=== PATIENT | male | born 1950 | race Caucasian/White ===

== ENCOUNTER 2020-09-20 16:36 | Emergency (ER) | payer MEDICARE, SELFPAY ==
[2020-09-20 19:39] VITALS: BP 120/82; PULSE 62; RESP 18; TEMP 36.7; O2SAT 99; BMI 32.5
[2020-09-20 20:12] LABS: Glucose Urine UA NEG (NEG); Leukocyte Esterase Urine 1+ (NEG); Nitrite Urine POS (NEG); Specific Gravity - Urine >= 1.030 (1.005-1.025); Urine Blood 3+ (NEG); Urine Ketones 5 MG/DL (NEG); Urine Protein 3+ MG/DL (NEG-TRACE)
[2020-09-20 20:13] LABS: Appearance Urine CLOUDY; Color Urine RED
[2020-09-20 20:22] LABS: Bacteria Urine 1+ /LPF; RBC Urine TNTC /HPF (0); Squamous Epithelial Cell Urine 1+ /LPF
[2020-09-20 20:42] LABS: MANUAL DIFF FLAG NO
[2020-09-20 20:43] LABS: Basophils Absolute Auto 0.1 X10*3/uL (0.0-0.2); Basophils Percent Auto 0.5 % (0-2); Eosinophils Absolute Auto 0.2 X10*3/uL (0.0-0.4); Eosinophils Percent Auto 2.2 % (0-4); Hemoglobin 13.1 g/dl (14.0-18.0); Imm Gran Abs Auto 0.04 X10*3/uL (0.00-0.03); Imm Gran Pct Auto 0.4 % (0.0-0.4); Lymphocytes Absolute Auto 3.3 X10*3/uL (1.2-4.9); Lymphocytes Percent Auto 33.2 % (20-40); Mean Corpuscular Hemoglobin 28.2 pg (27.0-33.0); Mean Corpuscular Volume 88.4 fL (80-98); Mean Platelet Volume 9.1 fL (9.4-12.4); Monocytes Absolute Auto 0.6 X10*3/uL (0.1-1.2); Neutrophils Absolute Auto 5.8 X10*3/uL (2.0-8.3); Neutrophils Percent Auto 57.7 % (45-73); Platelet Count 161 X10*3/uL (160-400); Red Blood Count 4.64 X10*6/uL (4.60-5.80); Red Cell Distribution Width 13.3 % (11.0-16.0)
[2020-09-20 21:11] LABS: Anion Gap 12 (12-20); Blood Urea Nitrogen 18 mg/dL (9-16); Calcium 8.7 mg/dL (8.4-10.2); Carbon Dioxide 25 mmol/L (22-29); Chloride 108 mmol/L (96-108); Creatinine Clr Calc Pharmacy 103.9; Estimated Glomerular Filt Rate > 60; Glucose Random 87 mg/dL (60-115); Potassium 4.4 mmol/l (3.3-5.1); Sodium 141 mmol/L (135-145)
--- NOTE | 2020-09-20 22:48 | PC.NURSE ---
IV established. MD at bedside for primary eval. Pt reports 4 episodes of hematuria today, describes urine as bright red blood, reports some clots noted in last episode. Denies pain/discomfort/fever at this time. VSS. Continue to monitor.
--- NOTE | 2020-09-20 22:50 | CT_ITS ---
EXAMINATION: CT ABDOMEN AND PELVIS WITHOUT CONTRAST CLINICAL INFORMATION: Gross painless hematuria COMPARISON: None TECHNIQUE: Multidetector volumetric imaging was performed from the superior aspect of the liver through the pubic symphysis. Sagittal and coronal reformatted images were obtained on the technologist's workstation. This CT examination was performed using dose optimization techniques as appropriate, variously including the following: *Automated exposure control *Adjustment of mA and/or kV according to patient size (this includes techniques or standardized protocols for targeted exams where dose is matched to indication/reason for exam; i.e. extremities or head) *Use of iterative reconstruction technique DLP: 809 mGy-cm FINDINGS: LUNG BASES: The visualized lung bases are unremarkable. LIVER, GALLBLADDER, AND BILIARY TREE: The liver is normal in size, shape, and attenuation. No focal hepatic lesion or biliary ductal dilatation is present. A 9 mm calcified gallstone is present in the gallbladder neck. Gallbladder is otherwise normal in appearance. No wall thickening or pericholecystic fluid on these images. PANCREAS: Unremarkable. SPLEEN: Unremarkable. ADRENAL GLANDS: Unremarkable. KIDNEYS AND URETERS: Multiple bilateral renal cysts are identified. The largest of these is a water density 5.2 cm exophytic cyst at the posterior aspect of the upper pole of the right kidney. 2 water density cyst (approximately 0 Hounsfield units) are present at the lateral aspect of the left lower renal pole cortex, each measuring approximately 1.7 cm in diameter. Multiple smaller bilateral renal cysts are noted, too small to characterize, particularly on this unenhanced study. The kidneys are otherwise normal in size, shape, and attenuation. No hydronephrosis, hydroureter, or calculi seen. Mild bilateral perinephric stranding. BLADDER: Unremarkable. GASTROINTESTINAL TRACT: Stomach, small bowel, and colon are normal in caliber. No bowel wall thickening or surrounding inflammatory changes. Appendix is normal. No intraperitoneal free fluid or free air. ABDOMINAL WALL: Small fat-containing umbilical hernia. No bowel involvement. There is also a small fat-containing left inguinal hernia, also without bowel involvement. LYMPH NODES: Normal. VASCULAR: Minimal calcific atherosclerosis is present at the ostia of the celiac axis and within the splenic artery. No aneurysmal dilatation. PELVIC VISCERA: The prostate and seminal vesicles are unremarkable. OSSEOUS STRUCTURES: There is solid osseous ankylosis within the thoracic and lumbar spine at multiple levels involving both the vertebral bodies and posterior elements. There is partial ankylosis of the SI joints with subtle chronic changes of sacroiliitis. Mild osteoarthritis is present in the SI joints. No acute fracture or malalignment. CT/CT abdomen pelvis wo con IMPRESSION: 1. No nephrolithiasis or evidence of obstructive uropathy. 2. Numerous bilateral cystic renal lesions. No suspicious soft tissue lesions are identified on these unenhanced images, though complete assessment with a CT urogram is advised on a nonemergent basis to better assess both the renal cystic lesions and the ureter/bladder. 3. Cholelithiasis without evidence of acute cholecystitis. 4. 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
--- NOTE | 2020-09-20 22:51 | ED_ITS ---
HPI - Male Genitourinary General Chief complaint: Urogenital-Male Stated complaint: blood in urine Time Seen by Provider: 09/20/20 22:50 Source: patient Mode of arrival: ambulatory Limitations: no limitations History of Present Illness HPI Narrative: 69 year-old male presented today with blood in the urine 4 times today, no pain in the abdomen or the flank area, patient otherwise declined fever or chills, no dysuria, no frequency. No recent weight loss. Patient declined using blood thinners. Decline feeling dizzy or lightheadedness. Related Data Home Medications Medication Instructions Recorded Confirmed flu vacc (65yr ml IM 07/29/20 up)-MF59C(PF) 60 mcg(15 mcgx4)/0.5 mL IM syringe levothyroxine 112 mcg tablet 112 mcg PO QAM 07/29/20 Previous Rx's Medication Instructions Recorded cefuroxime axetil 500 mg PO BID #20 tab 09/21/20 Allergies Allergy/AdvReac Type Severity Reaction Status Date / Time hay fever Allergy Unknown Hives RAsh Uncoded 09/20/20 19:38 Review of Systems Review of Systems: All other systems are reviewed and are negative Constitutional: Reports as per HPI and Reports no additional constitutional complaints Eyes: Reports as per HPI and Reports no additional eye complaints Reports system reviewed and no additional complaints, except as documented Cardiovascular: Reports as per HPI and Reports no additional cardiovascular complaints Respiratory: Reports as per HPI and Reports no additional respiratory complaints Gastrointestinal: Reports as per HPI and Reports no additional gastrointestinal complaints Genitourinary: Reports no additional female genitourinary complaints Musculoskeletal: Reports no additional musculoskeletal complaints Skin/Breast: Reports system reviewed and no additional complaints, except as docu Psychiatric: Reports no additional psychiatric complaints Endocrine: Reports no additional endocrine complaints Hematologic/Lymphatic: Reports no additional hematologic/lymphatic complaints Allergic/Immunologic: Reports no additional allergic/immunologic complaints Reports system reviewed and no additional complaints, except as documented and Reports Abnormal speech present [facility] Past Medical History Surgical History Pituitary microadenoma Family History Family History Father Medical history unknown Mother Medical history unknown Social History Social History Advance Directives: No Physical Exam Vital Signs: Vital Signs: Last Vital Signs Temp 98.0 F 09/20/20 23:59 Pulse 60 09/20/20 23:59 Resp 18 09/20/20 23:59 BP 129/82 09/20/20 23:59 Pulse Ox 97 09/20/20 23:59 Body Mass Index 32.5 Vital signs have been reviewed as normal and appeared to be correct. Blood pressure normal. Heart rate normal. Respiration rate normal. Temperature normal. Oxygen saturation normal. Appearance: Alert. Oriented X3. No acute distress. Head: Normal external exam. Normocephalic. Atraumatic. No Rosa signs noted. No raccoon eyes noted Eyes: PERRLA. EOMI. Conjunctiva and sclera normal. Eyelids normal. ENT: EAC normal. TM's Normal. Pharynx normal. Uvula midline. Moist mucous membranes. No trismus noted. No drooling noted. No muffled voice noted. Neck: Normal inspection. Neck supple. FROM. No adenopathy. Thyroid Normal. No meningeal signs. No neck mass noted. CVS: Normal heart rate and rhythm. Heart sound normal. No murmurs noted. Pulses normal throughout. Respiratory: No respiratory distress. Painless inspiration. Breath sounds normal. No wheezes/rales/rhonchi noted. Chest nontender. No accessory muscle usage noted or decreased air movement noted. Abdomen: Soft and nontender. Bowel sounds normal in all 4 quadrants. No distention noted. No organomegaly noted. No visible injury noted. Back: No CVA tenderness. Full range of motion noted. Skin: Skin warm and dry. Normal skin color. Normal skin turgor. No rashes/lesions/lacerations noted. Extremities: No lower extremity edema. Extremities exhibit normal range of motion. Extremities nontender. Neuro: Oriented X 3. No motor deficit. No sensory deficit. Reflexes normal. MDM - Male Genitourinary MDM Narrative Medical decision making narrative: Assessment and plan. 69 year-old male came in with painless gross hematuria, UA consistent with cystitis not meeting criteria for SIRS, CT ruled out kidney stones or malignancies. Will start the patient on Ceftin twice a day, encouraged to drink plenty of fluids, and follow up with urologist for further assessment, plan was discussed with the patient and verbalized full understanding to my instruction. Lab Data Result diagrams: 09/20/20 20:26 09/20/20 20:26 Labs: Lab Results 09/20/20 09/20/20 09/20/20 Range/Units 20:03 20:26 20:26 WBC 10.0 (4.8-10.8) X10*3/uL RBC 4.64 (4.60-5.80) X10*6/uL Hgb 13.1 L (14.0-18.0) g/dl Hct 41.0 L (42-52) % MCV 88.4 (80-98) fL MCH 28.2 (27.0-33.0) pg MCHC 32.0 (31.0-36.0) g/dl RDW 13.3 (11.0-16.0) % Plt Count 161 (160-400) X10*3/uL MPV 9.1 L (9.4-12.4) fL Immature Gran % (Auto) 0.4 (0.0-0.4) % Neut % (Auto) 57.7 (45-73) % Lymph % (Auto) 33.2 (20-40) % [place] % (Auto) 6.0 (2-11) % Eos % (Auto) 2.2 (0-4) % Baso % (Auto) 0.5 (0-2) % Lymph # (Auto) 3.3 (1.2-4.9) X10*3/uL [place] # (Auto) 0.6 (0.1-1.2) X10*3/uL Eos # (Auto) 0.2 (0.0-0.4) X10*3/uL Baso # (Auto) 0.1 (0.0-0.2) X10*3/uL Abs Immat Gran (auto) 0.04 H (0.00-0.03) X10*3/uL Absolute Neuts (auto) 5.8 (2.0-8.3) X10*3/uL Absolute Nucleated RBC 0.000 (0.0-0.012) X10*3/uL Nucleated RBC % (auto) 0.0 (0.0-0.2) /100WBC Hold Blue Top Sodium 141 (135-145) mmol/L Potassium 4.4 (3.3-5.1) mmol/l Chloride 108 (96-108) mmol/L Carbon Dioxide 25 (22-29) mmol/L Anion Gap 12 (12-20) BUN 18 H (9-16) mg/dL Creatinine 0.77 (0.5-1.4) mg/dL Estim Creat Clear Calc 103.9 Estimated GFR > 60 Random Glucose 87 (60-115) mg/dL Calcium 8.7 (8.4-10.2) mg/dL Urine Color RED Urine Appearance CLOUDY Urine pH 6.0 (5.0-8.0) Ur Specific [place] >= 1.030 H (1.005-1.025) Urine Protein 3+ H (NEG-TRACE) MG/DL Urine Glucose (UA) NEG (NEG) MG/DL Urine Ketones 5 (NEG) MG/DL Urine Blood 3+ H (NEG) Urine Nitrite POS H (NEG) Ur Leukocyte Esterase 1+ H (NEG) Urine RBC TNTC H (0) /HPF Urine WBC 10-14 H (0-4) /HPF Ur Squamous Epith Cells 1+ /LPF Urine Bacteria 1+ /LPF 09/20/20 Range/Units 20:28 WBC (4.8-10.8) X10*3/uL RBC (4.60-5.80) X10*6/uL Hgb (14.0-18.0) g/dl Hct (42-52) % MCV (80-98) fL MCH (27.0-33.0) pg MCHC (31.0-36.0) g/dl RDW (11.0-16.0) % Plt Count (160-400) X10*3/uL MPV (9.4-12.4) fL Immature Gran % (Auto) (0.0-0.4) % Neut % (Auto) (45-73) % Lymph % (Auto) (20-40) % [place] % (Auto) (2-11) % Eos % (Auto) (0-4) % Baso % (Auto) (0-2) % Lymph # (Auto) (1.2-4.9) X10*3/uL [place] # (Auto) (0.1-1.2) X10*3/uL Eos # (Auto) (0.0-0.4) X10*3/uL Baso # (Auto) (0.0-0.2) X10*3/uL Abs Immat Gran (auto) (0.00-0.03) X10*3/uL Absolute Neuts (auto) (2.0-8.3) X10*3/uL Absolute Nucleated RBC (0.0-0.012) X10*3/uL Nucleated RBC % (auto) (0.0-0.2) /100WBC Hold Blue Top SEE NOTE Sodium (135-145) mmol/L Potassium (3.3-5.1) mmol/l Chloride (96-108) mmol/L Carbon Dioxide (22-29) mmol/L Anion Gap (12-20) BUN (9-16) mg/dL Creatinine (0.5-1.4) mg/dL Estim Creat Clear Calc Estimated GFR Random Glucose (60-115) mg/dL Calcium (8.4-10.2) mg/dL Urine Color Urine Appearance Urine pH (5.0-8.0) Ur Specific [place] (1.005-1.025) Urine Protein (NEG-TRACE) MG/DL Urine Glucose (UA) (NEG) MG/DL Urine Ketones (NEG) MG/DL Urine Blood (NEG) Urine Nitrite (NEG) Ur Leukocyte Esterase (NEG) Urine RBC (0) /HPF Urine WBC (0-4) /HPF Ur Squamous Epith Cells /LPF Urine Bacteria /LPF Imaging Data CT scan - abdomen: Radiologist's impression: 1. No nephrolithiasis or evidence of obstructive uropathy. 2. Numerous bilateral cystic renal lesions. No suspicious soft tissue lesions are identified on these unenhanced images, though complete assessment with a CT urogram is advised on a nonemergent basis to better assess both the renal cystic lesions and the ureter/bladder. 3. Cholelithiasis without evidence of acute cholecystitis. 4. 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 Discharge Plan Discharge Clinical Impression: Hematuria due to acute cystitis Patient Disposition: Home, Self-Care Instructions: Urinary Tract Infection in Men (ED) Prescriptions: New cefuroxime axetil 500 mg tablet 500 mg PO BID Qty: 20 RF: 0 No Action Fluad Quad (65y up)(PF) 60 mcg (15 mcg x 4)/0.5 mL syringe IM RF: 0 levothyroxine 112 mcg tablet 112 mcg PO QAM RF: 0 Referrals: Wayne Velásquez MD [Physician] - 2 days Kofi Garrison DO [Primary Care Provider] - 2 days
--- NOTE | 2020-09-20 23:28 | PC.NURSE ---
Pt returns from CT on hospital bed at this time without incident.
[2020-09-20 23:59] VITALS: BP 129/82; PULSE 60; RESP 18; TEMP 36.7; O2SAT 97
[2020-09-21 01:45] VITALS: BP 136/80; PULSE 65; RESP 16
[2020-09-21] MEDS: cefTRIAXone sodium 1 GM in 0.9 % Sodium Chloride 50 ML IV (01:45)
--- NOTE | 2020-09-21 01:49 | PC.NURSE ---
Pt refusing to allow this RN to obtain BCX, states you're not sticking me again!! BCX obtained from pts IV line. Pt medicated per MAR. VSS. Aware of plan to DC home after ABX infusion is complete.
== END 2020-09-21 02:18 | disposition home or self-care (01) ==
PROVIDERS: Emergency Provider Emergency Medicine; PCP Hospitalist
DX: N30.01 Acute cystitis with hematuria (principal)
CPT/HCPCS: 36415; 74176; 80048; 81001; 85025; 87040; 87086; 87088; 87186; 96365; 99284; J0696

== ENCOUNTER 2020-12-04 07:23 | Outpatient (REF) | payer MEDICARE, SELFPAY ==
[2020-12-04 07:45] LABS: MANUAL DIFF FLAG NO
[2020-12-04 07:52] LABS: Basophils Absolute Auto 0.1 X10*3/uL (0.0-0.2); Basophils Percent Auto 0.7 % (0-2); Eosinophils Absolute Auto 0.2 X10*3/uL (0.0-0.4); Eosinophils Percent Auto 3.2 % (0-4); Hematocrit 39.2 % (42-52); Hemoglobin 12.7 g/dl (14.0-18.0); Imm Gran Abs Auto 0.03 X10*3/uL (0.00-0.03); Imm Gran Pct Auto 0.4 % (0.0-0.4); Lymphocytes Absolute Auto 3.3 X10*3/uL (1.2-4.9); Lymphocytes Percent Auto 46.4 % (20-40); Mean Corpuscular HGB Conc 32.4 g/dl (31.0-36.0); Mean Corpuscular Hemoglobin 28.6 pg (27.0-33.0); Mean Corpuscular Volume 88.3 fL (80-98); Mean Platelet Volume 8.9 fL (9.4-12.4); Monocytes Absolute Auto 0.4 X10*3/uL (0.1-1.2); Neutrophils Absolute Auto 3.1 X10*3/uL (2.0-8.3); Neutrophils Percent Auto 43.3 % (45-73); Platelet Count 150 X10*3/uL (160-400); Red Blood Count 4.44 X10*6/uL (4.60-5.80); White Blood Count 7.1 X10*3/uL (4.8-10.8)
[2020-12-04 08:11] LABS: Alanine Aminotransferase 24 U/L (0-40); Albumin Level 4.2 g/dL (3.5-5.0); Alkaline Phosphatase 83 U/L (39-117); Anion Gap 14 (12-20); Aspartate Amino Transferase 21 U/L (5-37); Blood Urea Nitrogen 23 mg/dL (9-16); Carbon Dioxide 26 mmol/L (22-29); Chloride 104 mmol/L (96-108); Cholesterol 197 mg/dL; Estimated Glomerular Filt Rate > 60; Glucose Fasting 91 mg/dL (60-99); HDL Cholesterol 53 mg/dL; LDL Cholesterol Calculated 108 mg/dl; Potassium 4.3 mmol/L (3.3-5.1); Sodium 140 mmol/L (135-145); Total Protein 7.3 g/dL (6.5-8.0); Triglycerides 181 mg/dL
[2020-12-04 08:32] LABS: Vitamin D 25-OH Total 18.9 ng/mL (>30)
[2020-12-06 16:32] LABS: Homocysteine 9.7 umol/L (<11.4)
[2020-12-09 10:36] LABS: Methylmalonic Acid 312 nmol/L (87-318)
== END 2020-12-04 07:24 | disposition home or self-care (01) ==
LOC: HO.LAB 07:23
PROVIDERS: PCP Internal Medicine; Visit Provider Internal Medicine
DX: Z00.00 Encounter for general adult medical examination without abnormal findings (principal); R41.89 Other symptoms and signs involving cognitive functions and awareness; E03.9 Hypothyroidism, unspecified; E11.9 Type 2 diabetes mellitus without complications
CPT/HCPCS: 36415; 80053; 80061; 82306; 83090; 83921; 84443; 85025

== ENCOUNTER 2020-12-08 17:42 | Outpatient (REF) | payer MEDICARE, SELFPAY ==
--- NOTE | ~2020-12-08 | MR_ITS ---
EXAMINATION: MR BRAIN WITHOUT AND WITH CONTRAST CLINICAL INFORMATION: History of pituitary macroadenoma. Status post resection 2013. No symptoms. COMPARISON: MRI brain 09/27/2015, 05/06/2014. TECHNIQUE: Multiplanar, multisequence MRI of the brain was obtained before and after the intravenous administration of 5 mL Gadavist. Pituitary protocol images were obtained. FINDINGS: A 3.3 cm x 1.9 cm x 2.9 cm (SI x AP x LAT) enhancing mass is centered in the sellar and suprasellar region increased in size compared with 09/27/2015 where contemporaneous measurements applied to this prior examination demonstrate the lesion previously measured in similar dimensions 2.1 cm x 1.7 cm x 2.3 cm. The lesion demonstrates increased mass effect upon the optic chiasm which is displaced superiorly approximately 7-10 mm. The lesion demonstrates increased lateral extent traversing the medial carotid lines bilaterally without traversing the lateral carotid lines bilaterally. Approximately 90 degree of abutment of the cavernous portions of the internal carotid arteries is present bilaterally which represents increased findings compared with 09/27/2015 without associated narrowing of the cavernous segments of the internal carotid arteries or definitive cavernous sinus invasion. Near-complete effacement of the suprasellar cistern is noted and is increased in extent compared with 09/27/2015. As previously noted, the lesion extends into the clivus with the degree of clival invasion unchanged appreciably compared with 09/27/2015 as visualized to best advantage on sagittal postcontrast enhanced images. Partial ethmoidectomies and additional findings related to the previously described transsphenoidal debulking of the previously identified pituitary macroadenoma are again visualized. Encephalomalacia of the parasagittal left inferior frontal and middle frontal lobes with nonenhancing subcortical gliosis is again noted and unchanged compared with 09/27/2015. Additional moderate diffuse commensurate prominence of the ventricles and sulci elsewhere in the brain is again visualized without appreciable change compared with 09/27/2015. Mild scattered fluid signal intensity is present in the left mastoid air cells. No intracranial hemorrhage or acute infarcts are identified. Partial visualization is made of the previously noted left posterior cervical subcutaneous lipoma measuring approximately 8 cm in maximum transaxial dimension. MR/MR head/brain wo/w con IMPRESSION: 1. Pituitary macroadenoma increased in size compared with 09/27/2015 status post prior transsphenoidal debulking. The current examination demonstrates interval increase in size of the tumor with newly identified mass effect upon the optic chiasm and effacement of the suprasellar cistern. No definitive cavernous sinus invasion. 2. Unchanged chronic left frontal parasagittal gliosis and encephalomalacia. 3. Partially visualized left posterior cervical subcutaneous lipoma grossly unchanged compared with 09/27/2015. This critical result was discussed with Dr. Saleem TERRELL by telephone at 12/12/2020 11:38 AM and it was ascertained that the content and urgency of the report was understood at the time of direct communication.
== END 2020-12-08 17:43 | disposition home or self-care (01) ==
LOC: HO.MRI 17:42
PROVIDERS: PCP Internal Medicine; Visit Provider Internal Medicine
DX: R41.89 Other symptoms and signs involving cognitive functions and awareness (principal)
CPT/HCPCS: 70553; A9585

== ENCOUNTER 2021-01-15 12:03 | Emergency (ER) | payer MEDICARE, SELFPAY ==
[2021-01-15 12:08] VITALS: BP 104/62; PULSE 65; RESP 16; TEMP 36.8; O2SAT 98; BMI 32.9
--- NOTE | 2021-01-15 13:04 | ED.EXTPRO ---
HPI - Extremity Problem General Chief complaint: Extremity Problem Stated complaint: TOE INFECTION Time Seen by Provider: 01/15/21 12:56 Source: patient Mode of arrival: ambulatory Limitations: no limitations History of Present Illness HPI Narrative: 70-year-old male reports that he was cutting his toenail approximately 1 week ago and since then he has developed some redness and swelling to his right 2nd toe. He denies any fevers or any other symptoms complaints or concerns at this time. Related Data Home Medications Medication Instructions Recorded Confirmed flu vacc (65yr ml IM 07/29/20 up)-MF59C(PF) 60 mcg(15 mcgx4)/0.5 mL IM syringe levothyroxine 112 mcg tablet 112 mcg PO QAM 07/29/20 Previous Rx's Medication Instructions Recorded cefuroxime axetil 500 mg PO BID #20 tab 09/21/20 cephalexin 500 mg PO BID 10 Days #20 cap 01/15/21 doxycycline monohydrate 100 mg PO BID 10 Days #20 cap 01/15/21 Allergies Allergy/AdvReac Type Severity Reaction Status Date / Time hay fever Allergy Unknown Hives RAsh Uncoded 09/20/20 19:38 Review of Systems Review of Systems: Constitutional : No Fever, No Chills, Cardiovascular : No Chest Pain, No SOB Respiratory : No Dyspnea Gastrointestinal : No abdominal pain Musculoskeletal : No Joint Swelling Skin : positive surrounding erythema to right 2nd toe, no skin laceration, No Foreign bodies, No rash Neuro : No Weakness, No Numbness/tingling Psych : No SI/HI/thoughts of self injury Yes all other systems are reviewed and are negative [facility] Past Medical History Attestation statement: The following information was validated with the patient. Medical History (Updated 01/15/21 @ 13:07 by ANGELA Crane) Cognitive decline Pituitary tumor Surgical History Pituitary microadenoma Family History Family History Father Medical history unknown Mother Medical history unknown Social History Social History (Updated 12/28/20 @ 11:50 by Sachin Fisher) Alcohol intake: current Alcohol intake frequency: holidays/special occasions only Smoking Status: Former smoker Physical Exam Vital Signs: Vital Signs: Last Vital Signs Temp 98.3 F 01/15/21 12:08 Pulse 65 01/15/21 12:08 Resp 16 01/15/21 12:08 BP 104/62 01/15/21 12:08 Pulse Ox 98 01/15/21 12:08 Body Mass Index 32.9 vital signs have been reviewed as normal and appeared to be correct. Blood pressure normal. Heart rate normal. Respiration rate normal. Temperature normal. Oxygen saturation normal. Appearance: Alert. Oriented X3. No acute distress. Head: Normal external exam. Normocephalic. Atraumatic. Eyes: PERRLA. EOMI. Conjunctiva and sclera normal. Eyelids normal. ENT: Pharynx normal. Uvula midline. Moist mucous membranes. Neck: Normal inspection. Neck supple. FROM. No adenopathy. Thyroid Normal. No meningeal signs. No neck mass noted. CVS: Normal heart rate and rhythm. Heart sound normal. No murmurs noted. Pulses normal throughout. Respiratory: No respiratory distress. Painless inspiration. Breath sounds normal. No wheezes/rales/rhonchi noted. Chest nontender. No accessory muscle usage noted or decreased air movement noted. Back: Full range of motion noted. Skin: Skin warm and dry. Normal skin color. Normal skin turgor. No rashes/lesions/lacerations noted. Extremities: To right 2nd toe at the distal aspect of the nail patient has mild soft tissue swelling with erythema. No fluctuance at this time patient is actually draining purulent discharge. No streaking/induration/foreign bodies noted at this time otherwise No lower extremity edema. Otherwise all other Extremities exhibit normal range of motion and nontender. Neuro: Oriented X 3. No motor deficit. No sensory deficit. Reflexes normal. Course Course Course Narrative: 70-year-old male with cellulitic infection to his right 2nd toe is currently draining therefore no additional I&D indicated at this time. No streaking. Patient denies being on any blood thinners. Will DC home antibiotics and symptomatic treatment instructions return if any new or worsening symptoms to follow up with primary care provider/health education teacher. Patient understands agrees with this plan. MDM - Extremity (Nontraumatic) Medical Records Attestation: I reviewed the patient's medical records. Discharge Plan Discharge Clinical Impression: Cellulitis Patient Disposition: Home, Self-Care Instructions: Cellulitis (ED) Prescriptions: New doxycycline monohydrate 100 mg capsule 100 mg PO BID 10 Days Qty: 20 RF: 0 cephalexin 500 mg capsule 500 mg PO BID 10 Days Qty: 20 RF: 0 No Action cefuroxime axetil 500 mg tablet 500 mg PO BID Qty: 20 RF: 0 Fluad Quad 2020-21(65y up)(PF) 60 mcg (15 mcg x 4)/0.5 mL syringe IM RF: 0 levothyroxine 112 mcg tablet 112 mcg PO QAM RF: 0 Referrals: Rodney Chu [Physician] - 2 days Print Language: Turkish
== END 2021-01-15 13:17 | disposition home or self-care (01) ==
LOC: HO.ED 13:10
PROVIDERS: Emergency Provider Emergency Medicine; PCP Hospitalist
DX: L03.031 Cellulitis of right toe (principal)
CPT/HCPCS: 99283

== ENCOUNTER 2021-02-24 08:46 | Outpatient (REF) | payer MEDICARE, SELFPAY ==
[2021-02-24 11:05] LABS: Anion Gap 13 (12-20); Blood Urea Nitrogen 19 mg/dL (9-16); Calcium 9.1 mg/dL (8.4-10.2); Carbon Dioxide 27 mmol/L (22-29); Chloride 106 mmol/L (96-108); Estimated Glomerular Filt Rate > 60; Glucose Random 92 mg/dL (60-115); Potassium 4.6 mmol/L (3.3-5.1); Sodium 141 mmol/L (135-145)
[2021-02-24 11:14] LABS: Osmolality, Serum 300 mosm/kg (281-305)
[2021-02-24 11:27] LABS: Free T4 (Free Thyroxine) 1.02 ng/dL (0.71-1.85); Thyroid Stimulating Hormone 0.01 uIU/mL (0.32-4.0)
[2021-02-25 18:44] LABS: Sex Hormone Binding Globulin 38 nmol/L (22-77)
[2021-02-25 21:05] LABS: Triiodothyronine T3 Total 110 ng/dL (76-181)
[2021-02-28 13:27] LABS: Follicle Stimulating Hormone 2.3 mIU/mL (1.6-8.0); IGF-1 (Somatomedin C) 41 ng/mL (34-245); IGF-1 Z Score (Male) -1.8 SD (-2.0 - +2.0); Lutenizing Hormone 0.6 mIU/mL (1.6-15.2); Prolactin Undiluted 14.2 ng/mL (2.0-18.0)
[2021-02-28 17:57] LABS: Testosterone, Free 1.5 pg/mL (30.0-135.0); Testosterone, Total 12 ng/dL (250-1100)
[2021-02-28 19:12] LABS: Adrenocorticotropic Hormone 28 pg/mL (6-50)
== END 2021-02-24 08:47 | disposition home or self-care (01) ==
LOC: HO.LAB 08:46
PROVIDERS: PCP Internal Medicine; Visit Provider Internal Medicine
DX: D35.2 Benign neoplasm of pituitary gland (principal); F03.90 Unspecified dementia, unspecified severity, without behavioral disturbance, psychotic disturbance, mood disturbance, and anxiety; Z79.899 Other long term (current) drug therapy; Z87.820 Personal history of traumatic brain injury
CPT/HCPCS: 36415; 80048; 82024; 82533; 83001; 83002; 83930; 84146; 84270; 84305; 84402; 84403; 84439; 84443; 84480; 99202

== ENCOUNTER → 2021-03-21 14:08 | Outpatient (REF) | payer MEDICARE, SELFPAY ==
--- NOTE | 2021-03-21 14:36 | ECG_ITS ---
Test Reason : Z13.9 Blood Pressure : / mmHG Vent. Rate : 068 BPM Atrial Rate : 068 BPM P-R Int : 144 ms QRS Dur : 088 ms QT Int : 384 ms P-R-T Axes : 036 010 071 degrees QTc Int : 408 ms Sinus rhythm with Premature atrial complexes Otherwise normal ECG When compared with ECG of 16-JUL-2014 12:00, Premature atrial complexes are now Present Referred By: Nate Jackson Electronically Signed By:Brando Antony
[2021-03-21 14:48] LABS: Prothrombin Time 11.3 SEC (9.9-13.0)
[2021-03-21 14:50] LABS: Partial Thromboplastin Time 38.1 SEC (24.1-38.0)
== END ==
LOC: HO.CARD 14:08
PROVIDERS: PCP Internal Medicine; Visit Provider Internal Medicine
DX: Z01.818 Encounter for other preprocedural examination (principal); Z13.9 Encounter for screening, unspecified
CPT/HCPCS: 36415; 85610; 85730; 93005

== ENCOUNTER 2021-03-29 07:46 | Outpatient (REF) | payer MEDICARE, SELFPAY ==
[2021-03-29 08:42] LABS: Sodium 139 mmol/L (135-145)
== END 2021-03-29 07:47 | disposition home or self-care (01) ==
LOC: HO.LAB 07:46
PROVIDERS: PCP Internal Medicine; Visit Provider Internal Medicine Endocrinology, Diabetes & Metabolism
DX: D35.2 Benign neoplasm of pituitary gland (principal); D35.3 Benign neoplasm of craniopharyngeal duct
CPT/HCPCS: 36415; 84295

== ENCOUNTER 2021-03-31 10:09 | Outpatient (REF) | payer MEDICARE, SELFPAY ==
[2021-03-31 11:20] LABS: Sodium 138 mmol/L (135-145)
== END 2021-03-31 10:10 | disposition home or self-care (01) ==
LOC: HO.LABR 10:09
PROVIDERS: PCP Internal Medicine; Visit Provider Internal Medicine Endocrinology, Diabetes & Metabolism
DX: D35.2 Benign neoplasm of pituitary gland (principal); D35.3 Benign neoplasm of craniopharyngeal duct
CPT/HCPCS: 36415; 84295

== ENCOUNTER 2021-04-02 11:19 | Emergency (ER) | payer MEDICARE, SELFPAY ==
[2021-04-02 11:31] VITALS: BP 125/77; PULSE 71; RESP 18; TEMP 36.1; O2SAT 98; BMI 32.5
--- NOTE | 2021-04-02 12:45 | PC.NURSE ---
Per son at bedside-pt missed follow up with [facility] neurosurgery on Sunday due to distance. we were supposed to be followed at [facility] but that didn't happen.
--- NOTE | 2021-04-02 13:22 | PC.NURSE ---
Per answering service-call back from [facility] neurosurgery oncall in 30 minutes.
--- NOTE | 2021-04-02 13:44 | PC.NURSE ---
Resident callback [phone]
--- NOTE | 2021-04-02 13:49 | PC.NURSE ---
[facility] EMIL Kauffman will contact Marcus Marshall.
--- NOTE | 2021-04-02 15:03 | ED_ITS ---
HPI - General Adult General Chief complaint: Wound/Laceration Stated complaint: SORE ON LIPS Time Seen by Provider: 04/02/21 13:42 History of Present Illness HPI narrative: Patient presents for packing removal after surgery on March 24 at [facility] in [place] by neuro surgery for a pituitary tumor that was accessed through the sphenoid sinus, packing was placed afterwards and he was supposed to have it removed to have removed at ENT specialist in [place] 3 days ago There are no complaints is no fever no headache, the only complaint is mild discomfort from the packing Related Data Home Medications Medication Instructions Recorded Confirmed levothyroxine 112 mcg tablet 112 mcg PO QAM 07/29/20 04/05/21 Allergies Allergy/AdvReac Type Severity Reaction Status Date / Time hay fever Allergy Unknown Hives RAsh Uncoded 02/24/21 09:51 Review of Systems Review of Systems: No fever no chills no dizziness no weakness no headache no nose bleed no bleeding from the mouth no pain no rash Yes all other systems are reviewed and are negative PMFSH Past Medical History Source: nursing notes reviewed Medical History (Updated 04/05/21 @ 10:45 by Nate Jackson MD) Cognitive decline Hypothyroidism Obesity Pituitary macroadenoma Pituitary tumor Surgical History (Updated 04/02/21 @ 11:04 by Angelica Cohen NP) History of surgery S/P excision of lipoma Family History Family History Father Medical history unknown Mother Medical history unknown Social History Social History Housing: House Alcohol intake: current Alcohol intake frequency: holidays/special occasions only Patient Tobacco Use Status: Former Tobacco user Tobacco use type: Cigarette e-Cigarette/Vaping Use: Never Used Second Hand Smoke Exposure: No service: No Current occupational status: retired Physical Exam Vital Signs: Vital Signs: Last Vital Signs Temp 96.9 F 04/02/21 11:31 Pulse 71 04/02/21 11:31 Resp 18 04/02/21 11:31 BP 125/77 04/02/21 11:31 Pulse Ox 98 04/02/21 11:31 Body Mass Index 32.5 General appearance is no acute distress patient is comfortable The the packing is in place there is no nose bleed, Pharynx the pharynx is clear there is no bleeding The neck is supple Respiratory no acute distress, The chest is clear to auscultation bilateral full symmetric breath sounds Skin no rashes Course Course Course Narrative: We called the ENT specialist in [place] and reach Dr. Kauffman who said it was complex to remove the packing and should be done by specialist and advised the patient to go to [place] now where he is at the hospital and he will remove the packing so they were given the address the phone number and they spoke to Dr. Kauffman and they left for [place] Discharge Plan Discharge Clinical Impression: Encounter for post surgical wound check Patient Disposition: Home, Self-Care Additional Instructions: This packing placed post surgically needs a specialist to remove it You spoke with Dr. Kauffman at [facility] was said come now and it will be removed there so go to [facility] for removal of this surgical packing and re- evaluation of the wound Prescriptions: No Action levothyroxine 112 mcg tablet 112 mcg PO QAM RF: 0 Interventions: ED Discharge Assessment Last Done: 04/02/21 15:01 Discharge Date/Time: 04/02/21 15:04
== END 2021-04-02 15:04 | disposition home or self-care (01) ==
PROVIDERS: Emergency Provider Emergency Medicine
DX: Z48.01 Encounter for change or removal of surgical wound dressing (principal); Z98.890 Other specified postprocedural states; Z87.820 Personal history of traumatic brain injury
CPT/HCPCS: 99283

== ENCOUNTER 2021-04-04 10:19 | Outpatient (REF) | payer MEDICARE, SELFPAY ==
[2021-04-04 11:45] LABS: Sodium 141 mmol/L (135-145)
== END 2021-04-04 10:20 | disposition home or self-care (01) ==
LOC: HO.LABR 10:19
PROVIDERS: PCP Hospitalist; Visit Provider Internal Medicine Endocrinology, Diabetes & Metabolism
DX: D35.2 Benign neoplasm of pituitary gland (principal); D35.3 Benign neoplasm of craniopharyngeal duct
CPT/HCPCS: 36415; 84295

== ENCOUNTER → 2021-05-11 13:39 | Outpatient (BNVA) | payer MEDICARE, SELFPAY | PROVIDERS: PCP Hospitalist; Visit Provider Internal Medicine | DX: D35.2 Benign neoplasm of pituitary gland (principal); E03.9 Hypothyroidism, unspecified | CPT/HCPCS: 99212 ==

== ENCOUNTER 2021-05-12 07:09 | Outpatient (REF) | payer MEDICARE, SELFPAY ==
[2021-05-12 07:55] LABS: Anion Gap 12 (12-20); Blood Urea Nitrogen 14 mg/dL (9-16); Calcium 9.4 mg/dL (8.4-10.2); Carbon Dioxide 23 mmol/L (22-29); Chloride 108 mmol/L (96-108); Estimated Glomerular Filt Rate > 60; Glucose Random 103 mg/dL (60-115); Potassium 4.2 mmol/L (3.3-5.1); Sodium 139 mmol/L (135-145)
[2021-05-12 08:16] LABS: Free T4 (Free Thyroxine) 0.88 ng/dL (0.71-1.85); Thyroid Stimulating Hormone 0.06 uIU/mL (0.32-4.0)
[2021-05-12 08:42] LABS: Osmolality, Serum 297 mosm/kg (281-305)
[2021-05-13 19:26] LABS: Sex Hormone Binding Globulin 29 nmol/L (22-77)
[2021-05-15 06:41] LABS: Triiodothyronine T3 Total 111 ng/dL (76-181)
[2021-05-16 15:27] LABS: Adrenocorticotropic Hormone 20 pg/mL (6-50)
[2021-05-16 16:05] LABS: IGF-1 (Somatomedin C) 51 ng/mL (34-245); IGF-1 Z Score (Male) -1.4 SD (-2.0 - +2.0)
[2021-05-17 09:36] LABS: Lutenizing Hormone 0.9 mIU/mL (1.6-15.2); Prolactin Undiluted 12.5 ng/mL (2.0-18.0)
[2021-05-18 13:20] LABS: Testosterone, Free 1.5 pg/mL (30.0-135.0); Testosterone, Total 11 ng/dL (250-1100)
== END 2021-05-12 07:10 | disposition home or self-care (01) ==
LOC: HO.LAB 07:09
PROVIDERS: PCP Hospitalist; Visit Provider Internal Medicine
DX: D35.2 Benign neoplasm of pituitary gland (principal)
CPT/HCPCS: 36415; 80048; 82024; 82533; 83001; 83002; 83930; 84146; 84270; 84305; 84402; 84403; 84439; 84443; 84480

== ENCOUNTER 2021-05-23 07:39 | Outpatient (REF) | payer MEDICARE, SELFPAY ==
[2021-05-24 20:31] LABS: Cortisol 30 Minute 33.4 mcg/dL; Cortisol 60 Minute 39.6 mcg/dL
[2021-05-24 21:51] LABS: Adrenocorticotropic Hormone 22 pg/mL (6-50)
== END 2021-05-23 07:40 | disposition home or self-care (01) ==
LOC: HO.MDS 07:39
PROVIDERS: PCP Hospitalist; Visit Provider Internal Medicine
DX: E27.40 Unspecified adrenocortical insufficiency (principal)
CPT/HCPCS: 36415; 82024; 82533; 96374; J0834

== ENCOUNTER 2021-11-17 12:25 | Outpatient (REF) | payer OTHER, SELFPAY ==
[2021-11-17 13:51] LABS: Anion Gap 12 (12-20); Blood Urea Nitrogen 16 mg/dL (9-16); Calcium 9.6 mg/dL (8.4-10.2); Carbon Dioxide 27 mmol/L (22-29); Chloride 108 mmol/L (96-108); Estimated Glomerular Filt Rate > 60; Glucose Random 94 mg/dL (60-115); Potassium 4.5 mmol/L (3.3-5.1); Sodium 142 mmol/L (135-145)
[2021-11-17 14:04] LABS: Osmolality, Serum 305 mosm/kg (281-305)
[2021-11-17 14:14] LABS: Free T4 (Free Thyroxine) 1.02 ng/dL (0.71-1.85); Thyroid Stimulating Hormone 0.05 uIU/mL (0.32-4.0)
[2021-11-18 20:31] LABS: Triiodothyronine T3 Total 120 ng/dL (76-181)
[2021-11-18 21:51] LABS: Sex Hormone Binding Globulin 38 nmol/L (22-77)
[2021-11-21 18:22] LABS: Follicle Stimulating Hormone 2.8 mIU/mL (1.6-8.0); Lutenizing Hormone 1.2 mIU/mL (1.6-15.2); Prolactin Undiluted 12.1 ng/mL (2.0-18.0)
[2021-11-22 14:31] LABS: IGF-1 (Somatomedin C) 49 ng/mL (34-245); IGF-1 Z Score (Male) -1.5 SD (-2.0 - +2.0)
[2021-11-22 14:37] LABS: Testosterone, Free 2.2 pg/mL (30.0-135.0); Testosterone, Total 14 ng/dL (250-1100)
== END 2021-11-17 12:26 | disposition home or self-care (01) ==
LOC: HO.LAB 12:25
PROVIDERS: PCP Hospitalist; Visit Provider Internal Medicine
DX: D35.2 Benign neoplasm of pituitary gland (principal)
CPT/HCPCS: 36415; 80048; 83001; 83002; 83930; 84146; 84270; 84305; 84402; 84403; 84439; 84443; 84480

== ENCOUNTER → 2021-11-21 13:10 | Outpatient (BNVA) | payer OTHER, SELFPAY | PROVIDERS: Visit Provider Internal Medicine | DX: D35.2 Benign neoplasm of pituitary gland (principal); E03.9 Hypothyroidism, unspecified | CPT/HCPCS: 99212 ==

== ENCOUNTER 2022-02-10 10:08 | Outpatient (REF) | payer OTHER, SELFPAY ==
--- NOTE | ~2022-02-10 | XR_ITS ---
EXAMINATION: XR SKULL CLINICAL INFORMATION: Status post brain surgery. Internal implants. Pre-MRI. COMPARISON: None TECHNIQUE: 5 views of the skull were obtained. FINDINGS: There is no radiopaque foreign body seen in the orbits. The paranasal sinuses are well-aerated and clear. No calvarial abnormality seen. No scalp soft tissue abnormality. XR/XR skull min 4V IMPRESSION: No radiopaque foreign body seen in the orbits.
--- NOTE | ~2022-02-10 | MR_ITS ---
EXAMINATION: MR BRAIN WITHOUT AND WITH CONTRAST CLINICAL INFORMATION: Benign neoplasm of pituitary gland. History of pituitary macroadenoma, status post resection 2013. COMPARISON: MRI brain 12/08/2020, 09/27/2015. TECHNIQUE: Multiplanar, multisequence MRI of the brain was obtained before and after the intravenous administration of 5 mL Gadavist. Pituitary protocol sequences are obtained. FINDINGS: Sellar and suprasellar enhancing lesion is decreased in size compared with 12/08/2020 currently measuring 1.8 cm x 1.6 cm x 2.3 cm (SI by AP by lateral). In similar dimensions, this lesion previously measured 3.3 cm x 1.9 cm x 2.9 cm on the study of 12/08/2020. The lesion comes to within 1 mm proximity of the inferior margin of the optic chiasm. The optic chiasm appears atrophic. The lesion partially extends into the clivus unchanged in extent compared with 12/08/2020. The lesion extends the left and right cavernous sinuses without crossing the medial carotid lines bilaterally. Normal flow-related signal intensity is noted in the cavernous portions of the internal carotid arteries. The lesion partially effaces the suprasellar cistern. The pituitary stalk is midline. Partial ethmoidectomies and additional findings related to the previously described transsphenoidal deep bulking of the previously identified pituitary macroadenoma are again visualized. Chronic encephalomalacia within the parasagittal anterior left frontal lobe is again noted. Elsewhere, moderate diffuse commensurate prominence of ventricles and sulci is noted along with mild periventricular white matter patchy T2 hyperintensities. Partial visualization is made of the previously noted left posterior cervical subcutaneous lipoma measuring approximately 8 cm in maximum transaxial dimension. No acute intracranial hemorrhage or acute infarcts are demonstrated. MR/MR head/brain wo/w con IMPRESSION: 1. Pituitary macroadenoma decreased in size compared with 12/08/2020. The lesion previously exerted mass effect upon the optic chiasm and currently comes to within 1 mm proximity of the optic chiasm without impinging upon the optic chiasm. The lesion demonstrates invasion of the clivus unchanged in extent compared with 12/08/2020. 2. Chronic postoperative findings status post transsphenoidal tumor debulking. 3. 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 4. Partially visualized left posterior cervical subcutaneous lipoma grossly unchanged compared with 09/27/2015.
== END 2022-02-10 10:09 | disposition home or self-care (01) ==
LOC: HO.MRI 10:08
PROVIDERS: Visit Provider Internal Medicine
DX: D35.2 Benign neoplasm of pituitary gland (principal)
CPT/HCPCS: 70260; 70553; A9585

== ENCOUNTER 2022-04-11 09:42 | Outpatient (REF) | payer OTHER, SELFPAY ==
[2022-04-11 10:49] LABS: Hematocrit 40.5 % (42.0-52.0); Hemoglobin 12.9 g/dl (14.0-18.0)
[2022-04-11 11:24] LABS: Anion Gap 18 (12-20); Blood Urea Nitrogen 14 mg/dL (9-16); Calcium 9.2 mg/dL (8.4-10.2); Carbon Dioxide 22 mmol/L (22-29); Chloride 106 mmol/L (96-108); Estimated Glomerular Filt Rate > 60; Glucose Random 102 mg/dL (60-115); Potassium 4.4 mmol/L (3.3-5.1); Sodium 142 mmol/L (135-145)
[2022-04-11 11:27] LABS: Osmolality, Serum 293 mosm/kg (281-305)
[2022-04-11 11:32] LABS: Prostate Specific Antigen 0.12 ng/mL (<0.05-4.0)
[2022-04-11 11:36] LABS: Free T4 (Free Thyroxine) 0.99 ng/dL (0.71-1.85); Thyroid Stimulating Hormone 0.11 uIU/mL (0.32-4.0)
[2022-04-11 11:38] LABS: Cortisol Random 10.5 ug/dL
[2022-04-12 07:33] LABS: Sex Hormone Binding Globulin 38 nmol/L (22-77); Triiodothyronine T3 Total 113 ng/dL (76-181)
[2022-04-12 14:21] LABS: Follicle Stimulating Hormone 3.3 mIU/mL (1.6-8.0); Lutenizing Hormone 1.1 mIU/mL (1.6-15.2); Prolactin Undiluted 11.1 ng/mL (2.0-18.0)
[2022-04-12 19:52] LABS: Adrenocorticotropic Hormone 31 pg/mL (6-50)
[2022-04-15 19:37] LABS: Testosterone, Free 2.4 pg/mL (30.0-135.0); Testosterone, Total 20 ng/dL (250-1100)
== END 2022-04-11 09:43 | disposition home or self-care (01) ==
LOC: HO.LAB 09:42
PROVIDERS: PCP Hospitalist; Visit Provider Internal Medicine
DX: Z12.5 Encounter for screening for malignant neoplasm of prostate (principal); D35.2 Benign neoplasm of pituitary gland
CPT/HCPCS: 36415; 80048; 82024; 82533; 83001; 83002; 83930; 84146; 84153; 84270; 84402; 84403; 84439; 84443; 84480; 85014; 85018

== ENCOUNTER → 2022-05-24 12:21 | Outpatient (BNVA) | payer OTHER, SELFPAY | PROVIDERS: PCP Hospitalist; Visit Provider Internal Medicine | DX: E23.0 Hypopituitarism (principal); D35.2 Benign neoplasm of pituitary gland; E03.9 Hypothyroidism, unspecified | CPT/HCPCS: 99212 ==

== ENCOUNTER 2022-06-06 12:59 | Outpatient (REF) | payer OTHER, SELFPAY ==
--- NOTE | ~2022-06-06 | MM_ITS ---
EXAMINATION: BONE DENSITOMETRY CLINICAL INDICATION: Hypopituitarism. COMPARISON: None (current study represents initial baseline exam). TECHNIQUE: Using a The [employer] DXA System (software version: 13.1) manufactured by [employer], dual-energy x-ray absorptiometry was performed of the lumbar spine, left hip, and left forearm radius 33%. The images are of good technical quality. Summary results are attached. FINDINGS: AP SPINE L1-L4: BMD 1.195 g/cm2, Z-score -0.4, T-score -0.2, normal. LEFT FEMUR, NECK: BMD 0.808 g/cm2, Z-score -1.2, T-score -2.0, osteopenia. LEFT FEMUR, TOTAL: BMD 0.869 g/cm2, Z-score -1.3, T-score -1.6, osteopenia. LEFT FOREARM RADIUS 33%: BMD 0.910 g/cm2, Z-score 0.1, T-score -0.8, normal. IDENTIFIED RISK FACTORS: Secondary osteoporosis. HISTORY OF FRACTURE: None listed. MEDICATIONS: None listed. MM/XR DEXA appendicular skeleton IMPRESSION: 1. DIAGNOSIS: Osteopenia based on the lowest T-score value of -2.0 in the femoral neck applying World Health Organization criteria. 2. 10-YEAR FRACTURE RISK PREDICTION, FRAX: Major osteoporotic fracture (clinical spine, forearm, hip or shoulder) 7.2%. Hip fracture 2.0%. 3. Treatment Recommendations: NOF guidelines recommend consideration for treatment in postmenopausal women and men age 50 and older presenting with the following: -A hip or vertebral (clinical or morphometric) fracture. -T-score less than or equal to -2.5 at the femoral neck or spine after appropriate evaluation to exclude secondary causes. -Low bone mass at the hip or spine and a 10-year fracture probability by FRAX of greater than or equal to 3% for hip fracture or greater than or equal to 20% for major osteoporotic fracture based on the [place] adapted WHO algorithm. 4. Other Recommendations: All treatment decisions require clinical judgment and consideration of individual patient factors, including patient preferences, comorbidities, previous drug use, risk factors not captured in the FRAX model (e.g. frailty, falls, vitamin D deficiency, increased bone turnover, interval significant decline in bone density) and possible under or overestimation of fracture risk by FRAX. Additional medical evaluation for secondary cause of low bone mineral density may be appropriate. FUTURE SCAN RECOMMENDATION: People with diagnosed cases of osteoporosis or at high risk for fracture should have regular bone mineral density tests. For patients eligible for Medicare, routine testing is allowed once every 2 years. The testing frequency can be increased to one year for patients who have rapidly progressing disease, those who are receiving or discontinuing medical therapy to restore bone mass, or have additional risk factors.
== END 2022-06-06 13:00 | disposition home or self-care (01) ==
LOC: HO.MAMMO 12:59
PROVIDERS: Visit Provider Internal Medicine
DX: Z13.820 Encounter for screening for osteoporosis (principal); E23.0 Hypopituitarism; M85.859 Other specified disorders of bone density and structure, unspecified thigh
CPT/HCPCS: 77081

== ENCOUNTER 2022-06-06 13:39 | Emergency (ER) | payer OTHER, SELFPAY ==
[2022-06-06 14:07] VITALS: BP 133/80; PULSE 66; RESP 18; TEMP 36.8; O2SAT 100; BMI 37.3
== END 2022-06-06 22:40 | disposition left against medical advice (07) ==
PROVIDERS: Emergency Provider Emergency Medicine
DX: M25.512 Pain in left shoulder (principal)
CPT/HCPCS: 99281

== ENCOUNTER 2022-06-07 12:04 | Emergency (ER) | payer OTHER, SELFPAY ==
--- NOTE | ~2022-06-07 | XR_ITS ---
EXAMINATION: XR SHOULDER, LEFT CLINICAL INFORMATION: Left shoulder pain. COMPARISON: None TECHNIQUE: AP external rotation, Grashey, scapular Y, and axillary views of the left shoulder. FINDINGS: The left glenohumeral joint shows mild degenerative changes. The left acromioclavicular joint is intact. Deformity is seen in the mid to distal one third of the left clavicle. The visualized left ribs are intact with the soft tissues are unremarkable. XR/XR shoulder LT min 2V IMPRESSION: 1. Deformity in the left clavicle is of indeterminate age. This could represent an old healed fracture, but acute fracture cannot be completely excluded. Correlate with physical exam and trauma history. 2. Mild left glenohumeral degenerative joint changes.
[2022-06-07 13:49] VITALS: BP 129/78; PULSE 58; RESP 18; TEMP 36.1; O2SAT 97; BMI 37.3
--- NOTE | 2022-06-07 15:44 | ED_ITS ---
HPI - Extremity Problem General Chief complaint: Extremity Injury, Upper Stated complaint: L shoulder pain Time Seen by Provider: 06/07/22 15:31 Source: patient Mode of arrival: ambulatory Limitations: no limitations History of Present Illness HPI Narrative: 71 year old male presents for a complaint of left shoulder pain and limited ROM. Patient reports he fell 2 weeks ago, reports he believes he tripped on something and fell. Although cannot remember what he actually tripped on. He denies any symptoms prior to the fall. He denies any pain at rest, though endorses pain and limited ROM while raising his arm. The patient denies any loss of sensation or numbness and tingling of his fingers. He denies head injury loss of consciousness, prolonged down time, neck pain/injury, back pain/injury, chest pain/injury, abdominal pain/injury or any other extremity injury complaints or concerns at this time. Onset (ago): week(s) (2) Pain Consistency: intermittent Location: left and upper extremity Severity scale (1-10): 1 Quality: sharp Radiation: none Relieving factors: rest Exacerbating factors: range of motion (abduction ) Associated symptoms: denies other symptoms Related Data Previous Rx's Medication Instructions Recorded levothyroxine 112 mcg tablet 112 mcg PO QAM 90 days #90 tabs 06/09/21 ibuprofen 600 mg tablet 600 mg PO Q6H PRN pain #14 tabs 06/07/22 tramadol 50 mg tablet 50 mg PO Q8H PRN pain #14 tabs 06/07/22 Allergies Allergy/AdvReac Type Severity Reaction Status Date / Time hay fever Allergy Unknown Hives RAsh Uncoded 05/24/22 12:37 Review of Systems Review of Systems: Eyes: No Discharge, No acute Vision Changes Cardiovascular : No Chest Pain, No SOB Respiratory : No Cough, No Sputum, No Wheezing Musculoskeletal : No Myalgias, No Joint Swelling, + Left shoulder pain. Skin : No Skin Lesions, No rash Neuro : No Weakness, No Numbness, No Paresthesias, No Loss of Consciousness, No Dizziness, No Headache Heme/Lymph: No Bruising, No Bleeding Yes all other systems are reviewed and are negative [facility] Past Medical History Attestation statement: The following information was validated with the patient. Source: old records reviewed and nursing notes reviewed Medical History Cognitive decline Hypogonadotropic hypogonadism Hypopituitarism Hypothyroidism Obesity Pituitary macroadenoma Pituitary tumor Surgical History History of surgery S/P excision of lipoma Family History Family History Father Medical history unknown Mother Medical history unknown Social History Social History Housing: House Alcohol intake: former Patient Tobacco Use Status: Former Tobacco user Tobacco use type: Cigarette e-Cigarette/Vaping Use: Never Used Second Hand Smoke Exposure: No Advance Directives: Yes Advance Directives on File: Yes Advance Directives Date on File: 03/09/21 service: No Current occupational status: retired Physical Exam Vital Signs: Vital Signs: Last Vital Signs Temp 97 F 06/07/22 13:49 Pulse 58 06/07/22 13:49 Resp 18 06/07/22 13:49 BP 129/78 06/07/22 13:49 Pulse Ox 97 06/07/22 13:49 O2 Del Method 06/07/22 13:49 BMI result Body Mass Index 37.3 vital signs have been reviewed as normal and appeared to be correct. Blood pressure normal Heart rate normal. Respiration rate normal. Temperature normal. Oxygen saturation normal. Appearance: Alert. Oriented X3. No acute distress. Head: Normal external exam. Normocephalic. Atraumatic. Eyes: PERRLA. Conjunctiva and sclera normal. Eyelids normal. ENT: Moist mucous membranes. Neck: Normal inspection. Neck supple. FROM. CVS: Normal heart rate and rhythm. Respiratory: No respiratory distress. Painless inspiration. Skin: Skin warm and dry. Normal skin color. Normal skin turgor. No rashes/lesions/lacerations noted. Extremities: Left shoulder with limited abduction ROM at 90 degrees due to pain. Otherwise has normal strength/script with bilateral hands. Does not have any elbow pain. No obvious ligamentous or tendon injury noted to the left shoulder joint. Otherwise all other extremities exhibit normal range of motion nontender. Neuro: Oriented X 3. No motor deficit. No sensory deficit. Normal steady gait. No focal neuro deficits noted. Vascular: + radial pulses/+ 2 b/l. No cyanosis noted to upper extremity nails. Course Course Course Narrative: 3:30 -71 year old male with a complaint of left shoulder pain and decreased ROM. Patient reports he fell 2 weeks ago, reports it was a mechanical fall.. He denies pain at rest, though endorses limited abduction ROM and Pain with ROM. The patient denies any loss of sensation, or numbness and tingling of his fingers. He denies head injury loss of consciousness or being on any blood thinners or any prolonged down time. He denies any symptoms prior to the fall. Reports it was mechanical fall. He denies any other injuries complaints co ncerns or injuries at this time. X ray performed. And revealed deformity in the left clavicle which is indeterminate age they cannot rule out an old healed fracture versus acute fracture. Due to patient's recent fall and limited range of motion will place in a sling and treat symptomatic and instructed follow-up with PCP/Orthopedics as needed as an outpatient basis and to return if any new or worsening symptoms. Patient understands agrees with this plan. Plan: Discharge with a orthopedic referral, sling, Tramadol, and Motrin. MDM - Extremity (Nontraumatic) Medical Records Attestation: I reviewed the patient's medical records. Imaging Data XR SHOULDER, LEFT: Attestation: I personally reviewed and interpreted this imaging study as follows: Radiologist's impression: IMPRESSION: 1. Deformity in the left clavicle is of indeterminate age. This could represent an old healed fracture, but acute fracture cannot be completely excluded. Correlate with physical exam and trauma history. 2. Mild left glenohumeral degenerative joint changes. Discharge Plan Discharge Clinical Impression: Sprain of left shoulder, Fall Patient Disposition: Home, Self-Care Instructions: How to Use a Sling (ED), Shoulder Sprain (ED) Prescriptions: New tramadol 50 mg tablet 50 mg PO Q8H PRN (Reason: pain) Qty: 14 0RF Rx Instructions: May partially fill upon patient request ibuprofen 600 mg tablet 600 mg PO Q6H PRN (Reason: pain) Qty: 14 0RF No Action levothyroxine 112 mcg tablet 112 mcg PO QAM 90 Days Qty: 90 3RF Referrals: [facility] [Provider Group] (In the next 2-3 weeks if symptoms persist for re-evaluation) Interventions: ED Discharge Assessment Last Done: 06/07/22 16:25 Discharge Date/Time: 06/07/22 16:26
== END 2022-06-07 16:26 | disposition home or self-care (01) ==
PROVIDERS: Emergency Provider Emergency Medicine
DX: S43.402A Unspecified sprain of left shoulder joint, initial encounter (principal); W19.XXXA Unspecified fall, initial encounter; Y93.9 Activity, unspecified; Y92.039 Unspecified place in apartment as the place of occurrence of the external cause; Y99.9 Unspecified external cause status
CPT/HCPCS: 73030; 99283

== ENCOUNTER → 2022-07-06 12:59 | Outpatient (BNVA) | payer OTHER, SELFPAY | PROVIDERS: Visit Provider Internal Medicine | DX: E23.0 Hypopituitarism (principal); D35.2 Benign neoplasm of pituitary gland; E03.9 Hypothyroidism, unspecified; M85.80 Other specified disorders of bone density and structure, unspecified site; E55.9 Vitamin D deficiency, unspecified; Z79.899 Other long term (current) drug therapy | CPT/HCPCS: 99212 ==

== ENCOUNTER 2022-11-22 09:26 | Outpatient (REF) | payer OTHER, SELFPAY ==
[2022-11-22 09:50] LABS: MANUAL DIFF FLAG NO
--- NOTE | 2022-11-22 09:54 | ECG_ITS ---
Test Reason : hypopituitarism Blood Pressure : / mmHG Vent. Rate : 074 BPM Atrial Rate : 074 BPM P-R Int : 146 ms QRS Dur : 086 ms QT Int : 378 ms P-R-T Axes : 037 -06 094 degrees QTc Int : 419 ms Normal sinus rhythm Nonspecific ST and T wave abnormality Abnormal ECG When compared with ECG of 21-MAR-2021 14:38, Premature atrial complexes are no longer Present Referred By: Nate Jackson Electronically Signed By:Brando Antony
[2022-11-22 09:57] LABS: Basophils Absolute Auto 0.1 X10*3/uL (0.0-0.2); Basophils Percent Auto 0.8 % (0-2); Eosinophils Absolute Auto 0.3 X10*3/uL (0.0-0.4); Eosinophils Percent Auto 3.3 % (0-4); Hematocrit 45.3 % (42.0-52.0); Hemoglobin 14.6 g/dl (14.0-18.0); Imm Gran Abs Auto 0.02 X10*3/uL (0.00-0.03); Imm Gran Pct Auto 0.2 % (0.0-0.4); Lymphocytes Absolute Auto 3.1 X10*3/uL (1.2-4.9); Lymphocytes Percent Auto 36.9 % (20-40); Mean Corpuscular HGB Conc 32.2 g/dl (31.0-36.0); Mean Corpuscular Hemoglobin 27.4 pg (27.0-33.0); Monocytes Absolute Auto 0.5 X10*3/uL (0.1-1.2); Monocytes Percent Auto 5.7 % (2-11); Neutrophils Absolute Auto 4.5 x10*3/uL (2.0-8.3); Neutrophils Percent Auto 53.1 % (45-73); Platelet Count 162 X10*3/uL (160-400); Red Blood Count 5.33 X10*6/uL (4.60-5.80); Red Cell Distribution Width 13.9 % (11.0-16.0); White Blood Count 8.5 X10*3/uL (4.8-10.8)
[2022-11-22 10:32] LABS: Alanine Aminotransferase 23 U/L (0-40); Albumin Level 4.1 g/dL (3.5-5.0); Alkaline Phosphatase 91 U/L (39-117); Anion Gap 12 (12-20); Aspartate Amino Transferase 23 U/L (5-37); Bilirubin Total 1.1 mg/dL (0.0-1.0); Blood Urea Nitrogen 18 mg/dL (9-16); Calcium 8.9 mg/dL (8.4-10.2); Carbon Dioxide 23 mmol/L (22-29); Chloride 109 mmol/L (96-108); Cholesterol 182 mg/dL; Estimated Glomerular Filt Rate > 60; Glucose Fasting 101 mg/dL (60-99); Glucose Random 100 mg/dL (60-115); HDL Cholesterol 38 mg/dL; LDL Cholesterol Calculated 122 mg/dl; Potassium 4.4 mmol/L (3.3-5.1); Prostate Specific Antigen Scr 0.31 ng/mL (<0.05-4.0); Sodium 140 mmol/L (135-145); Thyroid Stimulating Hormone 0.08 uIU/mL (0.32-4.0); Total Protein 6.8 g/dL (6.5-8.0); Triglycerides 110 mg/dL
[2022-11-22 10:34] LABS: Free T4 (Free Thyroxine) 1.12 ng/dL (0.71-1.85); Thyroid Stimulating Hormone 0.08 uIU/mL (0.32-4.0)
[2022-11-22 11:05] LABS: Osmolality, Serum 293 mosm/kg (281-305)
[2022-11-22 11:14] LABS: Estimated Average Glucose 108 mg/dL; Hemoglobin A1c % 5.4 %
[2022-11-22 11:40] LABS: Cortisol Random 10.6 ug/dL
[2022-11-23 16:34] LABS: Triiodothyronine T3 Total 106 ng/dL (76-181)
[2022-11-23 16:48] LABS: Sex Hormone Binding Globulin 44 nmol/L (22-77)
[2022-11-27 09:38] LABS: Adrenocorticotropic Hormone 21 pg/mL (6-50)
[2022-11-27 19:54] LABS: Follicle Stimulating Hormone 3.5 mIU/mL (1.6-8.0); Lutenizing Hormone 1.7 mIU/mL (1.6-15.2); Prolactin Undiluted 14.3 ng/mL (2.0-18.0)
[2022-11-28 15:44] LABS: Testosterone, Total 23 ng/dL (250-1100)
== END 2022-11-22 09:27 | disposition home or self-care (01) ==
LOC: HO.LAB 09:26
PROVIDERS: Internal Medicine; PCP Internal Medicine; Visit Provider Internal Medicine
DX: Z00.00 Encounter for general adult medical examination without abnormal findings (principal); Z12.5 Encounter for screening for malignant neoplasm of prostate; E03.9 Hypothyroidism, unspecified; R73.9 Hyperglycemia, unspecified; E78.5 Hyperlipidemia, unspecified; N28.9 Disorder of kidney and ureter, unspecified; N39.0 Urinary tract infection, site not specified; D35.2 Benign neoplasm of pituitary gland; E23.0 Hypopituitarism; D64.9 Anemia, unspecified
CPT/HCPCS: 36415; 80048; 80053; 80061; 82024; 82533; 83001; 83002; 83036; 83930; 84146; 84153; 84270; 84402; 84403; 84439; 84443; 84480; 85025; 87086; 93005

== ENCOUNTER → 2022-11-29 12:43 | Outpatient (BNVA) | payer MEDICARE, SELFPAY | PROVIDERS: PCP Hospitalist; Visit Provider Internal Medicine | DX: E23.0 Hypopituitarism (principal); D35.2 Benign neoplasm of pituitary gland; E03.9 Hypothyroidism, unspecified; M85.80 Other specified disorders of bone density and structure, unspecified site; E55.9 Vitamin D deficiency, unspecified; Z79.899 Other long term (current) drug therapy | CPT/HCPCS: 99212 ==

== ENCOUNTER 2022-12-12 07:30 | Outpatient (REF) | payer OTHER, SELFPAY ==
[2022-12-14 05:54] LABS: Cortisol 30 Minute 34.7 mcg/dL; Cortisol 60 Minute 40.8 mcg/dL; Cortisol Baseline 8.3 mcg/dL
[2022-12-19 21:48] LABS: Adrenocorticotropic Hormone 6 pg/mL (6-50)
== END 2022-12-12 07:31 | disposition home or self-care (01) ==
LOC: HO.MDS 07:30
PROVIDERS: Visit Provider Internal Medicine
DX: E23.0 Hypopituitarism (principal)
CPT/HCPCS: 36415; 82024; 82533; 96360; 96374; J0834

== ENCOUNTER 2022-12-23 11:08 | Emergency (ER) | payer OTHER, MEDICARE, SELFPAY ==
--- NOTE | ~2022-12-23 | XR_ITS ---
EXAMINATION: XR WRIST, RIGHT XR HAND, RIGHT CLINICAL INFORMATION: Trauma to thumb and hand one week ago COMPARISON: None available. TECHNIQUE: PA, lateral, and oblique views of the right wrist and PA, lateral, and oblique views of the right hand FINDINGS: No acute fracture or dislocation. Degenerative changes of the hand and wrist with advanced degenerative changes of the radiocarpal joint with widening of the scapholunate interval which could be seen in the setting of scapholunate dissociation. Moderate degenerative changes of the distal and proximal interphalangeal joints, first metacarpophalangeal joint and first carpometacarpal joint with degenerative spurring. Marked soft tissue swelling along the dorsum of the hand. Well corticated osseous fragment dorsal to the wrist may reflect sequelae of degenerative change or remote prior trauma. XR/XR hand wrist RT IMPRESSION: Marked soft tissue swelling along the dorsum of the hand without definite acute fracture or dislocation. Moderate degenerative changes of the hand and advanced degenerative changes of the wrist with widening of the scapholunate interval which could be seen in the setting of scapholunate dissociation.
[2022-12-23 11:18] VITALS: BP 173/84; PULSE 38; RESP 18; TEMP 36.8; O2SAT 98; BMI 32.3
--- NOTE | 2022-12-23 11:21 | ECG_ITS ---
Test Reason : reji Blood Pressure : / mmHG Vent. Rate : 052 BPM Atrial Rate : 052 BPM P-R Int : 180 ms QRS Dur : 088 ms QT Int : 444 ms P-R-T Axes : 032 -14 101 degrees QTc Int : 412 ms Sinus bradycardia with occasional Premature ventricular complexes Abnormal QRS-T angle, consider primary T wave abnormality Abnormal ECG When compared with ECG of 22-NOV-2022 09:56, Premature ventricular complexes are now Present Referred By: Livier Hanson Electronically Signed By:LANRE HARVEY MD
--- NOTE | 2022-12-23 11:24 | ED_ITS ---
HPI - Extremity Problem General Chief complaint: Extremity Problem Stated complaint: R hand swollen/in pain Time Seen by Provider: 12/23/22 12:20 Related Data Previous Rx's ?Medication ?Instructions ?Recorded ibuprofen 600 mg tablet 600 mg PO Q6H PRN pain #14 tabs 06/07/22 testosterone 1 % (50 mg/5 gram) 1 packet transdermal DAILY 30 days 02/12/23 transdermal gel packet #150 grams sertraline 50 mg tablet 50 mg PO DAILY #60 tabs 08/31/23 levothyroxine 112 mcg tablet 112 mcg PO QAM 90 days #90 tabs 09/24/23 lorazepam 1 mg tablet 1 mg PO BID PRN anxiety #10 tabs 03/07/24 Allergies Allergy/AdvReac Type Severity Reaction Status Date / Time hay fever Allergy Unknown Hives RAsh Uncoded 02/26/24 14:12 PMFSH Past Medical History Medical History Vitamin D deficiency Osteopenia Hypopituitarism Hypogonadotropic hypogonadism Obesity Hypothyroidism Pituitary macroadenoma Pituitary tumor Cognitive decline Surgical History S/P excision of lipoma History of surgery Family History Family History (Updated 02/26/24 @ 14:13 by TASH Gaxiola) Father Medical history unknown Mother Medical history unknown Social History Social History Housing: House Alcohol intake: former Patient Tobacco Use Status: Former Tobacco user Tobacco use type: Cigarette e-Cigarette/Vaping Use: Never Used Second Hand Smoke Exposure: No Advance Directives Date on File: 03/09/21 service: No Current occupational status: retired Current occupation: right handed Cognitive needs: No Hearing needs: No Vision needs: Yes (glasses) Physical Exam 2 Vital Signs: Vital Signs: Last Vital Signs Temp 98.2 F 12/23/22 11:18 Pulse 54 12/23/22 12:29 Resp 16 12/23/22 12:29 BP 147/76 H 12/23/22 12:48 Pulse Ox 96 12/23/22 12:29 O2 Del Method Room Air 12/23/22 12:29 BMI result Body Mass Index 32.3 Course Course Course Narrative: This is an RME: Additional HPI, ROS, PE not included below will be deferred to primary provider. This is a 72-year-old male presenting to the emergency department for evaluation of right hand and wrist swelling, unsure if there was trauma related or not patient poor historian. According to son it is new within the past 48 hours. Patient denies numbness and tingling but reports significant pain worse with movement better at rest. On exam patient was noted to be bradycardic heart rate in mid 30s. Pulses present. Will obtain x-ray. Will also obtain cardiac workup, EKG in urine. Medications Administered Discontinued Medications Generic Name Dose Route Start Last Admin Trade Name Freq PRN Reason Stop Dose Admin Oxycodone HCl 10 mg 12/23/22 12:24 12/23/22 12:31 Oxycodone Hcl Immed Release 5 Mg Tablet PO 12/23/22 12:25 10 mg ONCE ONE Administration Medical Decision Making Lab Data 12/23/22 11:35 12/23/22 11:35 Labs: Lab Results 12/23/22 Range/Units 11:35 WBC 9.4 (4.8-10.8) X10*3/uL RBC 5.10 (4.60-5.80) X10*6/uL Hgb 13.7 L (14.0-18.0) g/dl Hct 43.5 (42.0-52.0) % MCV 85.3 (80.0-98.0) fL MCH 26.9 L (27.0-33.0) pg MCHC 31.5 (31.0-36.0) g/dl RDW 13.6 (11.0-16.0) % Plt Count 177 (160-400) X10*3/uL MPV 9.1 L (9.4-12.4) fL Immature Gran % (Auto) 0.3 (0.0-0.4) % Neut % (Auto) 60.0 (45-73) % Lymph % (Auto) 30.9 (20-40) % [place] % (Auto) 6.9 (2-11) % Eos % (Auto) 1.4 (0-4) % Baso % (Auto) 0.5 (0-2) % Lymph # (Auto) 2.9 (1.2-4.9) X10*3/uL [place] # (Auto) 0.7 (0.1-1.2) X10*3/uL Eos # (Auto) 0.1 (0.0-0.4) X10*3/uL Baso # (Auto) 0.1 (0.0-0.2) X10*3/uL Abs Immat Gran (auto) 0.03 (0.00-0.03) X10*3/uL Absolute Neuts (auto) 5.7 (2.0-8.3) x10*3/uL Absolute Nucleated RBC 0.000 (0.0-0.012) X10*3/uL Nucleated RBC % (auto) 0.0 (0.0-0.2) /100WBC Sodium 140 (135-145) mmol/L Potassium 4.1 (3.3-5.1) mmol/L Chloride 106 (96-108) mmol/L Carbon Dioxide 24 (22-29) mmol/L Anion Gap 14 (12-20) BUN 15 (9-16) mg/dL Creatinine 0.89 (0.5-1.4) mg/dL Estim Creat Clear Calc 77.9 Estimated GFR > 60 Random Glucose 91 (60-115) mg/dL Calcium 8.8 (8.4-10.2) mg/dL Magnesium 1.9 (1.6-2.6) mg/dL Total Bilirubin 0.7 (0.0-1.0) mg/dL AST 15 (5-37) U/L ALT 15 (0-40) U/L Alkaline Phosphatase 91 (39-117) U/L Troponin I High Sens 3.0 (<3.5-35.0) ng/L Total Protein 6.7 (6.5-8.0) g/dL Albumin 4.1 (3.5-5.0) g/dL Discharge Plan Discharge Clinical Impression: Hand swelling Patient Disposition: Home, Self-Care Instructions: Swollen Joint (ED) Prescriptions: No Action testosterone 1 % (50 mg/5 gram) gel in packet 1 packet transdermal DAILY 30 Days Qty: 150 5RF levothyroxine 112 mcg tablet 112 mcg PO QAM 90 Days Qty: 90 11RF lorazepam 1 mg tablet 1 mg PO BID PRN (Reason: anxiety) Qty: 10 0RF ibuprofen 600 mg tablet 600 mg PO Q6H PRN (Reason: pain) Qty: 14 0RF sertraline 50 mg tablet 50 mg PO DAILY Qty: 60 2RF Referrals: Manuelito Sellers MD [Physician] - 2 days Interventions: ED Discharge Assessment Last Done: 12/23/22 12:56 Discharge Date/Time: 12/23/22 12:56 Print Language: Somali
[2022-12-23 11:40] LABS: MANUAL DIFF FLAG NO
[2022-12-23 11:41] LABS: Basophils Absolute Auto 0.1 X10*3/uL (0.0-0.2); Basophils Percent Auto 0.5 % (0-2); Eosinophils Absolute Auto 0.1 X10*3/uL (0.0-0.4); Eosinophils Percent Auto 1.4 % (0-4); Hematocrit 43.5 % (42.0-52.0); Hemoglobin 13.7 g/dl (14.0-18.0); Imm Gran Abs Auto 0.03 X10*3/uL (0.00-0.03); Imm Gran Pct Auto 0.3 % (0.0-0.4); Lymphocytes Absolute Auto 2.9 X10*3/uL (1.2-4.9); Lymphocytes Percent Auto 30.9 % (20-40); Mean Corpuscular HGB Conc 31.5 g/dl (31.0-36.0); Mean Corpuscular Hemoglobin 26.9 pg (27.0-33.0); Mean Corpuscular Volume 85.3 fL (80.0-98.0); Mean Platelet Volume 9.1 fL (9.4-12.4); Monocytes Absolute Auto 0.7 X10*3/uL (0.1-1.2); Monocytes Percent Auto 6.9 % (2-11); Neutrophils Absolute Auto 5.7 x10*3/uL (2.0-8.3); Platelet Count 177 X10*3/uL (160-400); Red Cell Distribution Width 13.6 % (11.0-16.0); White Blood Count 9.4 X10*3/uL (4.8-10.8)
[2022-12-23 11:58] LABS: Alanine Aminotransferase 15 U/L (0-40); Albumin Level 4.1 g/dL (3.5-5.0); Alkaline Phosphatase 91 U/L (39-117); Anion Gap 14 (12-20); Aspartate Amino Transferase 15 U/L (5-37); Bilirubin Total 0.7 mg/dL (0.0-1.0); Blood Urea Nitrogen 15 mg/dL (9-16); Calcium 8.8 mg/dL (8.4-10.2); Carbon Dioxide 24 mmol/L (22-29); Chloride 106 mmol/L (96-108); Creatinine Clr Calc Pharmacy 77.9; Estimated Glomerular Filt Rate > 60; Glucose Random 91 mg/dL (60-115); Magnesium 1.9 mg/dL (1.6-2.6); Potassium 4.1 mmol/L (3.3-5.1); Sodium 140 mmol/L (135-145); Total Protein 6.7 g/dL (6.5-8.0)
--- NOTE | 2022-12-23 12:28 | ED.EXTPRO ---
HPI - Extremity Problem General Chief complaint: Extremity Problem Stated complaint: R hand swollen/in pain Time Seen by Provider: 12/23/22 12:20 Source: patient Mode of arrival: ambulatory Limitations: no limitations History of Present Illness HPI Narrative: This is 72 years old patient with no significant past medical history presented to the emergency department complaining of right hand swelling, patient tells me that the pulled his right thumb, as history of DJD of the hand. He denies any fever. Complaint: other (rt hand swelling) Onset (ago): day(s) (2) Location: right and other (hand) Quality: aching Radiation: none Relieving factors: nothing Exacerbating factors: nothing Related Data Previous Rx's Medication Instructions Recorded ibuprofen 600 mg tablet 600 mg PO Q6H PRN pain #14 tabs 06/07/22 tramadol 50 mg tablet 50 mg PO Q8H PRN pain #14 tabs 06/07/22 testosterone 1 % (50 mg/5 gram) 1 packet transdermal DAILY 30 days 07/26/22 transdermal gel packet #150 grams levothyroxine 112 mcg tablet 112 mcg PO QAM 90 days #90 tabs 08/29/22 oxycodone 5 mg capsule 5 mg PO Q8H PRN pain #12 caps 12/23/22 Allergies Allergy/AdvReac Type Severity Reaction Status Date / Time hay fever Allergy Unknown Hives RAsh Uncoded 11/29/22 13:00 Review of Systems Constitutional: Constitutional: Denies fever(s) Cardiovascular: Cardiovascular: Reports no additional cardiovascular complaints Respiratory: Respiratory: Reports no additional respiratory complaints Neurologic: Reports system reviewed and no additional complaints, except as documented PMFSH Past Medical History Medical History Cognitive decline Hypogonadotropic hypogonadism Hypopituitarism Hypothyroidism Obesity Osteopenia Pituitary macroadenoma Pituitary tumor Vitamin D deficiency Surgical History History of surgery S/P excision of lipoma Family History Family History Father Medical history unknown Mother Medical history unknown Social History Social History Housing: House Alcohol intake: former Patient Tobacco Use Status: Former Tobacco user Tobacco use type: Cigarette e-Cigarette/Vaping Use: Never Used Second Hand Smoke Exposure: No Advance Directives: Yes Advance Directives on File: Yes Advance Directives Date on File: 03/09/21 service: No Current occupational status: retired Physical Exam Vital Signs: Vital Signs: Last Vital Signs Temp 98.2 F 12/23/22 11:18 Pulse 54 12/23/22 12:29 Resp 16 12/23/22 12:29 BP 173/84 H 12/23/22 11:18 Pulse Ox 96 12/23/22 12:29 O2 Del Method Room Air 12/23/22 12:29 BMI result Body Mass Index 32.3 Const: General: cooperative Nutritional Appearance: well nourished Orientation/consciousness: patient oriented x3 Limitations: no limitations HEENT: Head: Yes normal to inspection General nose exam: Normal external nose present Face and sinus: Yes normal facial exam Mouth: Normal oral and palatal mucosa present Neck: Neck: Yes normal visual inspection and Yes full ROM Chest: Chest palpation & inspection: normal inspection of the chest Resp: Effort & Inspection: normal respiratory effort Cardio: Jugular venous distension: no JVD Rate: regular rate Rhythm: regular rhythm GI: Inspection: Yes normal to inspection Palpation (GI): Soft to palpation Auscultation: normal bowel sounds Skin: General skin exam: no rashes or lesions noted Lesions: no lesions Rashes: no rashes Neuro: General: patient oriented x3 Extrem: Other: Exam of the right hand shows swelling in the dorsal aspect of the hand has excellent radial pulse. No redness. Course Reevaluation(s) Reevaluation #1: Patient presented with and swelling in triage they recorded pulse of 38 but we recheck and was 54, pulse with an EKG was in sinus rhythm a rate of 52, he had no syncope no presyncope no lightheadedness Time: 12:47 Medications Administered Discontinued Medications Generic Name Dose Route Start Last Admin Trade Name Freq PRN Reason Stop Dose Admin Oxycodone HCl 10 mg 12/23/22 12:24 12/23/22 12:31 Oxycodone Hcl Immed Release 5 Mg Tablet PO 12/23/22 12:25 10 mg ONCE ONE Administration Medical Decision Making Medical Decision Making MDM Narrative: Patient presented with bright and swelling out traumatic normal x-ray I do not think this is cellulitis he has no fever no redness. The I do not think this is aDVT his arm itself is okay as no swelling in the arm and forearm, gout is in the differential diagnosis, he looks well is not toxic I think can be discharged home a a follow-up with either PCP or ortho Differential Diagnosis Differential Diagnoses: The differential diagnosis associated with the presentation includes Gout/DJD Admission/Observation Consideration of admission/observation: Escalation of care including admission/observation considered Lab Data MDM Lab Attestation statement: I reviewed the patient's lab results. 12/23/22 11:35 12/23/22 11:35 Labs: Lab Results 12/23/22 12/23/22 12/23/22 Range/Units 11:35 11:35 11:35 WBC 9.4 (4.8-10.8) X10*3/uL RBC 5.10 (4.60-5.80) X10*6/uL Hgb 13.7 L (14.0-18.0) g/dl Hct 43.5 (42.0-52.0) % MCV 85.3 (80.0-98.0) fL MCH 26.9 L (27.0-33.0) pg MCHC 31.5 (31.0-36.0) g/dl RDW 13.6 (11.0-16.0) % Plt Count 177 (160-400) X10*3/uL MPV 9.1 L (9.4-12.4) fL Immature Gran % (Auto) 0.3 (0.0-0.4) % Neut % (Auto) 60.0 (45-73) % Lymph % (Auto) 30.9 (20-40) % [place] % (Auto) 6.9 (2-11) % Eos % (Auto) 1.4 (0-4) % Baso % (Auto) 0.5 (0-2) % Lymph # (Auto) 2.9 (1.2-4.9) X10*3/uL [place] # (Auto) 0.7 (0.1-1.2) X10*3/uL Eos # (Auto) 0.1 (0.0-0.4) X10*3/uL Baso # (Auto) 0.1 (0.0-0.2) X10*3/uL Abs Immat Gran (auto) 0.03 (0.00-0.03) X10*3/uL Absolute Neuts (auto) 5.7 (2.0-8.3) x10*3/uL Absolute Nucleated RBC 0.000 (0.0-0.012) X10*3/uL Nucleated RBC % (auto) 0.0 (0.0-0.2) /100WBC Sodium 140 (135-145) mmol/L Potassium 4.1 (3.3-5.1) mmol/L Chloride 106 (96-108) mmol/L Carbon Dioxide 24 (22-29) mmol/L Anion Gap 14 (12-20) BUN 15 (9-16) mg/dL Creatinine 0.89 (0.5-1.4) mg/dL Estim Creat Clear Calc 77.9 Estimated GFR > 60 Random Glucose 91 (60-115) mg/dL Calcium 8.8 (8.4-10.2) mg/dL Magnesium 1.9 (1.6-2.6) mg/dL Total Bilirubin 0.7 (0.0-1.0) mg/dL AST 15 (5-37) U/L ALT 15 (0-40) U/L Alkaline Phosphatase 91 (39-117) U/L Troponin I High Sens 3.0 (<3.5-35.0) ng/L Total Protein 6.7 (6.5-8.0) g/dL Albumin 4.1 (3.5-5.0) g/dL Independent Interpretation I performed an independent interpretation of an: EKG (EKG sinus rhythm rate [address]-T changes) and Plain X-Ray Interpretation: no fx Radiology Impression Discussion of test interpretation with radiology: I have reviewed the radiologist's reading. Radiologist Impression: oblique views of the right hand FINDINGS: No acute fracture or dislocation. Degenerative changes of the hand and wrist with advanced degenerative changes of the radiocarpal joint with widening of the scapholunate interval which could be seen in the setting of scapholunate dissociation. Moderate degenerative changes of the distal and proximal interphalangeal joints, first metacarpophalangeal joint and first carpometacarpal joint with degenerative spurring. Marked soft tissue swelling along the dorsum of the hand. Well corticated osseous fragment dorsal to the wrist may reflect sequelae of degenerative change or remote prior trauma.? XR/XR hand wrist RT IMPRESSION: ? Marked soft tissue swelling along the dorsum of the hand without definite acute fracture or dislocation. ? ?Moderate degenerative changes of the hand and advanced degenerative changes of the wrist with widening of the scapholunate interval which could be seen in the setting of scapholunate dissociation. Dictated By: Montserrat Ascencio MD Discharge Plan Discharge Clinical Impression: Hand swelling Patient Disposition: Home, Self-Care Instructions: Swollen Joint (ED) Prescriptions: New oxycodone 5 mg capsule 5 mg PO Q8H PRN (Reason: pain) Qty: 12 0RF Rx Instructions: Partial Fill upon patient request. No Action testosterone 1 % (50 mg/5 gram) gel in packet 1 packet transdermal DAILY 30 Days Qty: 150 5RF levothyroxine 112 mcg tablet 112 mcg PO QAM 90 Days Qty: 90 11RF tramadol 50 mg tablet 50 mg PO Q8H PRN (Reason: pain) Qty: 14 0RF Rx Instructions: May partially fill upon patient request ibuprofen 600 mg tablet 600 mg PO Q6H PRN (Reason: pain) Qty: 14 0RF Referrals: Manuelito Sellers MD [Physician] - 2 days
[2022-12-23 12:29] VITALS: PULSE 54; RESP 16; O2SAT 96
[2022-12-23] MEDS: oxyCODONE HCl Immed Release 5 MG TABLET 10 MG PO (12:31)
[2022-12-23 12:48] VITALS: BP 147/76
== END 2022-12-23 12:56 | disposition home or self-care (01) ==
PROVIDERS: Physician Assistant; Emergency Provider Emergency Medicine; PCP Internal Medicine
DX: M79.89 Other specified soft tissue disorders (principal); M79.641 Pain in right hand; Z87.820 Personal history of traumatic brain injury; M19.041 Primary osteoarthritis, right hand; M19.031 Primary osteoarthritis, right wrist; M18.11 Unilateral primary osteoarthritis of first carpometacarpal joint, right hand
CPT/HCPCS: 36415; 73110; 73130; 80053; 83735; 84484; 85025; 93005; 99283; 99284

== ENCOUNTER 2022-12-29 07:05 | Outpatient (REF) | payer OTHER, SELFPAY ==
[2023-01-01 19:18] LABS: Cortisol 30 Minute 30.8 mcg/dL; Cortisol 60 Minute 36.3 mcg/dL; Cortisol Baseline 8.5 mcg/dL
[2023-01-05 05:12] LABS: Adrenocorticotropic Hormone 6 pg/mL (6-50)
== END 2022-12-29 07:06 | disposition home or self-care (01) ==
LOC: HO.MDS 07:05
PROVIDERS: Visit Provider Internal Medicine
DX: E27.40 Unspecified adrenocortical insufficiency (principal)
CPT/HCPCS: 36415; 82024; 82533; 96374; J0834

== ENCOUNTER → 2023-01-12 09:54 | Outpatient (BNVA) | payer MEDICARE, SELFPAY | PROVIDERS: PCP Internal Medicine; Visit Provider Physician Assistant | DX: M19.031 Primary osteoarthritis, right wrist (principal) | CPT/HCPCS: 99202 ==

== ENCOUNTER 2023-02-02 09:31 | Outpatient (REF) | payer MEDICARE, SELFPAY ==
[2023-02-02 10:28] LABS: Anion Gap 15 (12-20); Blood Urea Nitrogen 14 mg/dL (9-16); Calcium 8.9 mg/dL (8.4-10.2); Carbon Dioxide 20 mmol/L (22-29); Chloride 110 mmol/L (96-108); Estimated Glomerular Filt Rate > 60; Glucose Random 99 mg/dL (60-115); Potassium 4.3 mmol/L (3.3-5.1); Sodium 141 mmol/L (135-145)
[2023-02-02 10:30] LABS: Osmolality, Serum 292 mosm/kg (281-305)
[2023-02-02 10:38] LABS: Cortisol Random 19.5 ug/dL; Free T4 (Free Thyroxine) 0.86 ng/dL (0.71-1.85); Thyroid Stimulating Hormone 0.25 uIU/mL (0.32-4.0)
[2023-02-05 10:24] LABS: Sex Hormone Binding Globulin 38 nmol/L (22-77); Triiodothyronine T3 Total 104 ng/dL (76-181)
[2023-02-08 12:42] LABS: Follicle Stimulating Hormone 3.4 mIU/mL (1.6-8.0); Lutenizing Hormone 1.4 mIU/mL (1.6-15.2); Prolactin Undiluted 11.2 ng/mL (2.0-18.0)
[2023-02-10 08:14] LABS: Adrenocorticotropic Hormone 38 pg/mL (6-50)
[2023-02-10 18:54] LABS: Testosterone, Free 3.1 pg/mL (30.0-135.0); Testosterone, Total 24 ng/dL (250-1100)
[2023-02-11 19:19] LABS: IGF-1 (Somatomedin C) 40 ng/mL (34-245); IGF-1 Z Score (Male) -1.7 SD (-2.0 - +2.0)
== END 2023-02-02 09:32 | disposition home or self-care (01) ==
LOC: HO.LAB 09:31
PROVIDERS: PCP Internal Medicine; Visit Provider Internal Medicine
DX: D35.2 Benign neoplasm of pituitary gland (principal)
CPT/HCPCS: 36415; 80048; 82024; 82533; 83001; 83002; 83930; 84146; 84270; 84305; 84402; 84403; 84439; 84443; 84480

== ENCOUNTER 2023-03-15 11:00 | Outpatient (RCR) | payer MEDICARE, OTHER, SELFPAY ==
[2023-01-03 15:52] VITALS: BP 86/60
--- NOTE | 2023-01-03 17:12 | MHC.PT.EP ---
[facility] [place] Office [place] Office [place] Office [address] [place] [address] [phone] F: [phone] F: [phone] F: [phone] F: [phone] Physical Therapy Plan of Care Date of Evaluation: Date of Surgery: Diagnosis: Bilateral leg weakness (MD Dx) unsteady gait, impaired balance with frequent falls (PT Dx) Assessment: Patient is a 72 y.o. male who is referred to PT by Dr. Nate Jackson MD with Dx of bilateral leg weakness. PT diagnosis is unsteady gait with impaired balance. Patient impairments include weakness, impaired functional mobility, poor static and dynamic balance, antalgic gait. Patient current functional limitations are walking any distance, stair use, sit to stand from low surface. Patient will benefit from skilled PT to address aforementioned impairments and functional limitations to meet established goals. Frequency and Duration: The patient will be seen 2x/week for 4 weeks Short Term Goals: 2 weeks Patient demonstrates consistency and independence with HEP to self manage symptoms. Patient presents with appropriate height cane/AD with proper use for safety during ambulation. Strip Polisher Goals: 4 weeks Patient presents with increased quad strength 5/5 to be able to perform reciprocal stairs with 1 railing. Patient presents with increased single leg stance balance 5 seconds each side to improve gait long distances. Treatment Plan: Modalities to reduce pain, spasms and effusion. Manual therapy to restore motion and function. Therapeutic exercise to improve strength and flexibility. Neuromuscular re-education for posture and balance. Therapeutic activities to return to functional activities of daily living. Electronically signed by: Theodore Paz, PT, DPT Please sign and return to therapist. Thank you for your referral.
--- NOTE | 2023-01-05 12:15 | MHC.PT.EP ---
[facility] [place] Office [place] Office [place] Office [address] [place] [address] [phone] F: [phone] F: [phone] F: [phone] F: [phone] Physical Therapy Plan of Care Date of Evaluation: Date of Surgery: Diagnosis: Bilateral leg weakness (MD Dx) unsteady gait, impaired balance with frequent falls (PT Dx) Assessment: Patient is a 72 y.o. male who is referred to PT by Dr. Nate Jackson MD with Dx of bilateral leg weakness. PT diagnosis is unsteady gait with impaired balance. Patient impairments include weakness, impaired functional mobility, poor static and dynamic balance, antalgic gait. Patient current functional limitations are walking any distance, stair use, sit to stand from low surface. Patient will benefit from skilled PT to address aforementioned impairments and functional limitations to meet established goals. Frequency and Duration: The patient will be seen 2x/week for 4 weeks Short Term Goals: 2 weeks Patient demonstrates consistency and independence with HEP to self manage symptoms. Patient presents with appropriate height cane/AD with proper use for safety during ambulation. Legal Executive Goals: 4 weeks Patient presents with increased quad strength 5/5 to be able to perform reciprocal stairs with 1 railing. Patient presents with increased single leg stance balance 5 seconds each side to improve gait long distances. Treatment Plan: Modalities to reduce pain, spasms and effusion. Manual therapy to restore motion and function. Therapeutic exercise to improve strength and flexibility. Neuromuscular re-education for posture and balance. Therapeutic activities to return to functional activities of daily living. Electronically signed by: Theodore Paz, PT, DPT Please sign and return to therapist. Thank you for your referral.
--- NOTE | 2023-04-06 13:43 | MHC.PT.DC ---
[facility] [place] Office [place] Office [place] Office [address] [facility] [phone] F: [phone] F: [phone] F: [phone] F: [phone] Physical Therapy Discharge Report Diagnosis: Bilateral leg weakness (MD Dx) unsteady gait, impaired balance with frequent falls (PT Dx) Date of Surgery: Date of Evaluation: 01/03/23 Date of Discharge: 03/15/23 Treatments to Date: 11 Cancellations to Date: No Shows to Date: Discharge Status: Improved Function Independent with HEP Discharge Summary: Assessment from last treatment note on 03/15/23: Pt continues to require rest breaks as needed. Arrived several hours early and was able to be accommodated for shortened session. Pt without discomfort/overt LOB throughout session. D/C I with HEP. Electronically signed by: Theodore Paz PT, DPT Please sign and return to therapist. Thank you for your referral.
== END 2023-04-06 13:42 | disposition home or self-care (01) ==
LOC: HO.PT 11:00
PROVIDERS: PCP Internal Medicine; Visit Provider Internal Medicine
DX: R29.898 Other symptoms and signs involving the musculoskeletal system (principal)
CPT/HCPCS: 97110; 97112; 97163

== ENCOUNTER 2023-03-21 08:38 | Outpatient (AMB) | payer MEDICARE, SELFPAY ==
--- NOTE | 2023-03-21 08:36 | A.OFFVIS_ITS ---
Intake Intake Visit Reasons: F/U Pituitary Macroadenoma/[phone] android Allergies hay fever Allergy (Unknown, Uncoded 03/21/23 11:10) Hives RAsh Medication List - Last Reconciled 03/21/23 by Lyndsay Carvajal, ibuprofen 600 mg PO Q6H PRN levothyroxine 112 mcg PO QAM 90 days lorazepam 1 mg PO BID PRN testosterone 1 packet transdermal DAILY 30 days HPI HPI Comments History of Present Illness Details 72 YO Male with a PMHx of a Pituitary Macroadenoma s/p transphenoidal debulking [place] [address] Vail at [facility] and again 03/24/[address] Lyndsay Suarez of [facility], also a prior traumatic brain injury and dementia, who is seen in F/U for a pituitary macroadenoma. Of note, the Patient is a very poor historian and has very little information regarding his health history. He had a Pituitary MRI dated 12/08/2020 which revealed expansion of his pituitary macroadenoma to 3.3 cm, with mass effect on and displacement of the optic chiasm by up to 1 cm. He was having severe visual field deficits at that time. I referred him emergently to [facility] Neurosurgery and he underwent surgical debulking by Dr. Lyndsay Suarez 03/24/2021. Postoperative labs remained WNL in terms of Cortisol and sodium. He had a repeat Pituitary MRI which revealed postoperative decompression of the optic nerves. He had a repeat Pituitary MRI 02/10/2022 which revealed the pituitary tumor to be 2.3 cm in maximal dimension, and not compressing the optic chiasm though it does come within 1 mm of the optic chiasm. He was asked to follow up with Neurosurgery, but his insurance was no longer accepted by [facility] Neurosurgery so he did see Dr. Bakari Dolan at [facility]. Notes have not yet been received. He did have a repeat pituitary MRI 02/13/23 which was largely unchanged. He was also noted to have hypogonadism with low testosterone and has consistently refused testosterone supplementation. We checked a DXA scan which revealed osteopenia of the hip. He then did agree to testosterone supplementation and was started on androgel packets. He has been noncompliant with these. History was gathered through Cyndy, his Daughter and healthcare proxy. Pituitary MRI: 02/10/2022 FINDINGS: Sellar and suprasellar enhancing lesion is decreased in size compared with 12/08/2020 currently measuring 1.8 cm x 1.6 cm x 2.3 cm (SI by AP by lateral). In similar dimensions, this lesion previously measured 3.3 cm x 1.9 cm x 2.9 cm on the study of 12/08/2020. The lesion comes to within 1 mm proximity of the inferior margin of the optic chiasm. The optic chiasm appears atrophic. The lesion partially extends into the clivus unchanged in extent compared with 12/08/2020. The lesion extends the left and right cavernous sinuses without crossing the medial carotid lines bilaterally. Normal flow-related signal intensity is noted in the cavernous portions of the internal carotid arteries. The lesion partially effaces the suprasellar cistern. The pituitary stalk is midline. Partial ethmoidectomies and additional findings related to the previously described transsphenoidal deep bulking of the previously identified pituitary macroadenoma are again visualized. Chronic encephalomalacia within the parasagittal anterior left frontal lobe is again noted. Elsewhere, moderate diffuse commensurate prominence of ventricles and sulci is noted along with mild periventricular white matter patchy T2 hyperintensities. Partial visualization is made of the previously noted left posterior cervical subcutaneous lipoma measuring approximately 8 cm in maximum transaxial dimension. No acute intracranial hemorrhage or acute infarcts are demonstrated. MR/MR head/brain wo/w con IMPRESSION: ? 1. Pituitary macroadenoma decreased in size compared with 12/08/2020. The lesion previously exerted mass effect upon the optic chiasm and currently comes to within 1 mm proximity of the optic chiasm without impinging upon the optic chiasm. The lesion demonstrates invasion of the clivus unchanged in extent compared with 12/08/2020. 2. Chronic postoperative findings status post transsphenoidal tumor debulking. 3. 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 4. Partially visualized left posterior cervical subcutaneous lipoma grossly unchanged compared with 09/27/2015. DXA: 06/06/2022 FINDINGS: AP SPINE L1-L4: BMD 1.195 g/cm2, Z-score -0.4, T-score -0.2, normal. LEFT FEMUR, NECK: BMD 0.808 g/cm2, Z-score -1.2, T-score -2.0, osteopenia. LEFT FEMUR, TOTAL: BMD 0.869 g/cm2, Z-score -1.3, T-score -1.6, osteopenia. LEFT FOREARM RADIUS 33%: BMD 0.910 g/cm2, Z-score 0.1, T-score -0.8, normal. Labs: Laboratory Tests 11/22/22 11/22/22 11/22/22 09:49 09:49 09:49 Sodium 140 Potassium 4.4 Creatinine 0.90 Estimated GFR > 60 Hemoglobin A1c % 5.4 Osmolality 293 Calcium Albumin LDL Cholesterol, C alc 122 PSA Screen 0.31 TSH Free T4 Total T3 FSH Luteinizing Hormon e Prolactin Undilute d Prolactin Diluted Total Testosterone Fr Testosterone Di ab Sex Hormone Bind G lob Somatomedin-C Random Cortisol ACTH 11/22/22 11/22/22 11/22/22 09:49 09:49 09:49 Sodium Potassium Creatinine Estimated GFR Hemoglobin A1c % Osmolality Calcium Albumin LDL Cholesterol, C alc PSA Screen TSH 0.08 L Free T4 1.12 Total T3 FSH Luteinizing Hormon e Prolactin Undilute d Prolactin Diluted Total Testosterone Fr Testosterone Di ab Sex Hormone Bind G lob Somatomedin-C Random Cortisol 10.6 ACTH 21 11/22/22 12/23/22 02/02/23 Unknown 11:35 09:55 Sodium Potassium Creatinine Estimated GFR Hemoglobin A1c % Osmolality Calcium 8.9 Albumin 4.1 LDL Cholesterol, C alc PSA Screen TSH 0.25 L Free T4 0.86 Total T3 106 FSH 3.5 Luteinizing Hormon e 1.7 Prolactin Undilute d 14.3 Prolactin Diluted SEE NOTE Total Testosterone 23 L Fr Testosterone Di ab 3.0 L Sex Hormone Bind G lob 44 Somatomedin-C Random Cortisol ACTH 02/02/23 09:55 Sodium Potassium Creatinine Estimated GFR Hemoglobin A1c % Osmolality Calcium Albumin LDL Cholesterol, C alc PSA Screen TSH Free T4 Total T3 104 FSH 3.4 Luteinizing Hormon e 1.4 L Prolactin Undilute d 11.2 Prolactin Diluted Total Testosterone 24 L Fr Testosterone Di ab 3.1 L Sex Hormone Bind G lob Somatomedin-C 40 Random Cortisol [facility] Medical History Cognitive decline Hypogonadotropic hypogonadism Hypopituitarism Hypothyroidism Obesity Osteopenia Pituitary macroadenoma Pituitary tumor Vitamin D deficiency Surgical History History of surgery S/P excision of lipoma Family History Father Medical history unknown Mother Medical history unknown Social History Housing: House Alcohol intake: former Patient Tobacco Use Status: Former Tobacco user Tobacco use type: Cigarette e-Cigarette/Vaping Use: Never Used Second Hand Smoke Exposure: No Advance Directives Date on File: 03/09/21 service: No Current occupational status: retired Current occupation: right handed Cognitive needs: No Hearing needs: No Vision needs: No Assessment & Plan Assessment & Plan (1) Hypogonadotropic hypogonadism: Code(s): E23.0 - Hypopituitarism Plan: Patient with hypogonadotropic hypogonadism. We reviewed that his testosterone levels are low. We reviewed this can lead to Osteoporosis as well as sexual dysfunction. We reviewed the indication for testosterone replacement. He has consistently refused. His DXA did show osteopenia of the hip. We reviewed this in detail. He did opt to begin this at his last visit but has been noncompliant. Due to the Patient's cognitive disability from his TBI he is unable to administer injections at home. He is ordered for transdermal testosterone 1% 50 mg daily (1 packet daily). I have asked that he repeat labs now and I will call with adjustments. We did discuss potential ADRs of polycythemia, BPH and prostate cancer. All of his questions were answered. He is in agreement with this plan of care. I spent 20 minutes in reviewing the record, seeing the patient and documenting in the medical record, including 5 minutes on the phone with the Patient. (2) Pituitary macroadenoma: Code(s): D35.2 - Benign neoplasm of pituitary gland Plan: Patient with a nonsecreting Pituitary macroadenoma now s/p a second transphenoidal debulking surgery by Dr. Lyndsay Suarez 03/24/2021. Repeat MRI revealed postoperative decompression of the optic nerves, with pituitary mass now measuring 2.3 cm. This does come within 1 mm of the optic chiasm. He was last seen by Dr. Suarez 05/09/2021. His insurance is no longer accepted by [facility]. I referred him to Dr. Dolan at [facility] and he did have an initial consultation. He had a more recent Pituitary MRI 02/13/2023, but has not followed up with Dr. Dolan since that time. I have requested he F/U with Dr. Dolan to review these results and determine the next steps in his plan of care, and have also requested records from Dr. Dolan. (3) Hypothyroidism: Code(s): E03.9 - Hypothyroidism, unspecified Plan: Patient with central hypothyroidism. He remains on Levothyroxine 112 mcg PO daily. TFTs at goal. No changes. It is important to note that his TSH is unusable given his Pituitary issues. Adjustments to his levothyroxine dose must be made based on his FT4 and TT3. (4) Osteopenia: Code(s): M85.80 - Other specified disorders of bone density and structure, unspecified si te Plan: Patient with Osteopenia of the hip. FRAX score is 8.4% for a major osteoporotic fracture, and 2.7% for a hip fracture. No indication for treatment at this time. (5) Vitamin D deficiency: Code(s): E55.9 - Vitamin D deficiency, unspecified Plan: He does have low Vitamin D. Will repeat levels with his next set of labs. Telehealth Telehealth Location of provider rendering services: practice address Location of patient: address on file Patient Identification confirmed using: Name, : Yes Telehealth method: voice only Patient verbally consented to treatment: Yes Patient verbally consented to billing insurance company: Yes Patient informed of any privacy concerns related to visit: Yes Coding Level of Care Code Tele Est Pt Level 3 (50516) Diagnoses Hypogonadotropic hypogonadism E23.0 Pituitary macroadenoma D35.2 Hypothyroidism E03.9 Osteopenia M85.80 Vitamin D deficiency E55.9
== END 2023-03-21 11:29 | disposition home or self-care (01) ==
LOC: HO.ENCR 08:38
PROVIDERS: PCP Internal Medicine; Visit Provider Internal Medicine
DX: E23.0 Hypopituitarism (principal); D35.2 Benign neoplasm of pituitary gland; E03.9 Hypothyroidism, unspecified; M85.80 Other specified disorders of bone density and structure, unspecified site; E55.9 Vitamin D deficiency, unspecified
CPT/HCPCS: 99443

== ENCOUNTER → 2023-03-21 08:38 | Outpatient (BNVA) | payer MEDICARE, SELFPAY | PROVIDERS: PCP Internal Medicine; Visit Provider Internal Medicine ==

== ENCOUNTER 2023-03-23 08:13 | Outpatient (REF) | payer MEDICARE, SELFPAY ==
[2023-03-25 21:14] LABS: Sex Hormone Binding Globulin 44 nmol/L (22-77)
[2023-03-28 20:08] LABS: Testosterone, Free 3.2 pg/mL (30.0-135.0); Testosterone, Total 26 ng/dL (250-1100)
== END 2023-03-23 08:14 | disposition home or self-care (01) ==
LOC: HO.LAB 08:13
PROVIDERS: Visit Provider Internal Medicine
DX: E23.0 Hypopituitarism (principal)
CPT/HCPCS: 36415; 84270; 84402; 84403

== ENCOUNTER 2023-08-31 09:11 | Outpatient (AMB) | payer MEDICARE, SELFPAY ==
[2023-08-31 09:13] VITALS: BP 112/68; PULSE 70; O2SAT 97; BMI 36.8
--- NOTE | 2023-08-31 09:13 | A.OFFPC_ITS ---
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: Not Required per policy Accompanied by: Self / Same As Patient Allergies hay fever Allergy (Unknown, Uncoded 08/31/23 09:13) Hives RAsh Medication List - Last Reconciled 08/31/23 by Nate Jackson MD ibuprofen 600 mg PO Q6H PRN levothyroxine 112 mcg PO QAM 90 days testosterone 1 packet transdermal DAILY 30 days Tobacco use date assessed: 02/22/23 Fall risk assessment: No Falls in past year Last assessed Fall Risk: 08/31/23 Dental Screening Dental Screen Date: 08/31/23 Did you have a dental visit in the last 12 months?: Yes Did you have a dental problem in the last 6 months where you did not have access to dental care?: No Was dental information given to patient?: Patient has dentist HPI Depression HPI Details hypopituitarism; not compliant; needs to see [facility] Medical History Vitamin D deficiency Osteopenia Hypopituitarism Hypogonadotropic hypogonadism Obesity Hypothyroidism Pituitary macroadenoma Pituitary tumor Cognitive decline Surgical History S/P excision of lipoma History of surgery Family History Father Medical history unknown Mother Medical history unknown Social History Housing: House Alcohol intake: former Patient Tobacco Use Status: Former Tobacco user Tobacco use type: Cigarette e-Cigarette/Vaping Use: Never Used Second Hand Smoke Exposure: No Advance Directives Date on File: 03/09/21 service: No Current occupational status: retired Current occupation: right handed Cognitive needs: No Hearing needs: No Vision needs: Yes Questionnaire Thrive Questionnaire Date Thrive assessed: 11/22/22 BRUNO-7 AMB Questionnaire BRUNO-7 Date BRUNO - 7 assessed: 11/22/22 Source: Developed by Tamiko RubiW. Meng, Jose D Tuttle and colleagues, with an educational deon from [employer]. Review of Systems Const Denies chills, Denies headache(s) and Denies weight loss ENT Denies headache(s) Card Denies chest pain, Denies syncope, Denies irregular heart rhythm and Denies dyspnea Resp Denies chest congestion, Denies cough and Denies dyspnea GI Denies abdominal pain, Denies change in stool character, Denies nausea and Denies vomiting Musc Denies deformity and Denies joint swelling Neuro Denies syncope and Denies headache(s) Physical exam (Primary Care) Vital Signs: Last Vital Signs Pulse 70 08/31/23 09:13 BP 112/68 08/31/23 09:13 Pulse Ox 97 08/31/23 09:13 Oxygen Delivery Method Room Air 08/31/23 09:13 BMI result Body Mass Index 36.8 Tobacco/Smoking Status: Tobacco use Status Tobacco use date assessed 02/22/23 08/31/23 09:19 Patient Tobacco Use Status Former Tobacco user 08/31/23 09:19 Tobacco use type Cigarette 08/31/23 09:19 e-Cigarette/Vaping Use Never Used 08/31/23 09:19 Thrive Assessment: Date of Thrive Assessment Date Thrive assessed 11/22/22 08/31/23 09:19 Const General: cooperative, comfortable, no acute distress and alert Neck Neck: Yes no lymphadenopathy Thyroid: Thyroid normal Resp Effort & Inspection: normal respiratory effort Auscultation: clear to auscultation bilaterally Percussion: percussion normal Cardio Jugular venous distension: no JVD Palpation: normal PMI Rate: regular rate Rhythm: regular rhythm Heart sounds: S1 normal heart sound present and S2 normal heart sound present GI Inspection: Yes normal to inspection Palpation (GI): No hepatosplenomegaly present Skin General skin exam: no rashes or lesions noted Extrem General: Yes no clubbing, cyanosis or edema Assessment and Plan Assessment & Plan (1) Hypopituitarism: Code(s): E23.0 - Hypopituitarism Plan: labs and referral Orders: Orders Lipid Panel Today E78.5 - Hyperlipidemia, unspecified Comprehensive [place]. Panel Fast Today N28.9 - Disorder of kidney and ureter, unspecified Thyroid Stimulating Hormone Today E03.9 - Hypothyroidism, unspecified Complete Blood Count Auto Diff Today D64.9 - Anemia, unspecified Referrals Endocrinology Referral E11.9 - Type 2 diabetes mellitus without complications Medications: New sertraline 50 mg PO DAILY 60 tabs 2RF Coding Level of Care Code Est Pt Level 3 (55998) Diagnoses Hypopituitarism E23.0
== END 2023-08-31 09:33 | disposition home or self-care (01) ==
PROVIDERS: PCP Internal Medicine; Visit Provider Internal Medicine
DX: E23.0 Hypopituitarism (principal)
CPT/HCPCS: 99213

== ENCOUNTER 2023-11-16 08:29 | Outpatient (REF) | payer MEDICARE, SELFPAY ==
[2023-11-16 08:59] LABS: MANUAL DIFF FLAG NO
[2023-11-16 09:09] LABS: Basophils Absolute Auto 0.1 X10*3/uL (0.0-0.2); Basophils Percent Auto 0.7 % (0-2); Eosinophils Absolute Auto 0.3 X10*3/uL (0.0-0.4); Eosinophils Percent Auto 2.4 % (0-4); Hemoglobin 14.7 g/dl (14.0-18.0); Imm Gran Abs Auto 0.05 X10*3/uL (0.00-0.03); Imm Gran Pct Auto 0.5 % (0.0-0.4); Lymphocytes Absolute Auto 4.8 X10*3/uL (1.2-4.9); Lymphocytes Percent Auto 43.6 % (20-40); Mean Corpuscular Hemoglobin 27.4 pg (27.0-33.0); Mean Corpuscular Volume 85.8 fL (80.0-98.0); Mean Platelet Volume 9.1 fL (9.4-12.4); Monocytes Absolute Auto 0.6 X10*3/uL (0.1-1.2); Monocytes Percent Auto 5.4 % (2-11); Neutrophils Absolute Auto 5.3 x10*3/uL (2.0-8.3); Neutrophils Percent Auto 47.4 % (45-73); Platelet Count 223 X10*3/uL (160-400); Red Blood Count 5.36 X10*6/uL (4.60-5.80); Red Cell Distribution Width 14.5 % (11.0-16.0); White Blood Count 11.1 X10*3/uL (4.8-10.8)
[2023-11-16 09:46] LABS: Alanine Aminotransferase 15 U/L (0-40); Alkaline Phosphatase 86 U/L (39-117); Anion Gap 13 (12-20); Aspartate Amino Transferase 15 U/L (5-37); Bilirubin Total 0.8 mg/dL (0.0-1.0); Blood Urea Nitrogen 21 mg/dL (9-16); Calcium 9.4 mg/dL (8.4-10.2); Carbon Dioxide 25 mmol/L (22-29); Chloride 107 mmol/L (96-108); Cholesterol 188 mg/dL (<200); Estimated Glomerular Filt Rate > 60; Glucose Fasting 100 mg/dL (60-99); HDL Cholesterol 45 mg/dL (>40); LDL Cholesterol Calculated 120 mg/dL (<100); Potassium 4.4 mmol/L (3.3-5.1); Sodium 141 mmol/L (135-145); Total Protein 7.5 g/dL (6.5-8.0); Triglycerides 115 mg/dL (<150)
[2023-11-16 10:03] LABS: Thyroid Stimulating Hormone 1.56 uIU/mL (0.32-4.0)
== END 2023-11-16 08:30 | disposition home or self-care (01) ==
LOC: HO.LAB 08:29
PROVIDERS: PCP Internal Medicine; Visit Provider Internal Medicine
DX: E78.5 Hyperlipidemia, unspecified (principal); E03.9 Hypothyroidism, unspecified; N28.9 Disorder of kidney and ureter, unspecified; D64.9 Anemia, unspecified
CPT/HCPCS: 36415; 80053; 80061; 84443; 85025

== ENCOUNTER 2024-02-26 14:09 | Outpatient (AMB) | payer MEDICARE, SELFPAY ==
[2024-02-26 14:12] VITALS: BP 114/70; PULSE 70; O2SAT 98; BMI 37.0
--- NOTE | 2024-02-26 14:12 | MHC.PC.OV ---
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 Accompanied by: son Allergies hay fever Allergy (Unknown, Uncoded 02/26/24 14:12) Hives RAsh Medication List - Last Reconciled 02/27/24 by Nate Jackson MD ibuprofen 600 mg PO Q6H PRN levothyroxine 112 mcg PO QAM 90 days sertraline 50 mg PO DAILY testosterone 1 packet transdermal DAILY 30 days Tobacco use date assessed: 02/26/24 Fall risk assessment: 1 Fall in past year Last assessed Fall Risk: 02/26/24 Dental Screening Dental Screen Date: 02/26/24 Did you have a dental visit in the last 12 months?: Yes Did you have a dental problem in the last 6 months where you did not have access to dental care?: No Was dental information given to patient?: Patient has dentist HPI pe HPI Details hypopituitarism on rx; sees endo in [place] because he was discharged from [facility] Medical History Vitamin D deficiency Osteopenia Hypopituitarism Hypogonadotropic hypogonadism Obesity Hypothyroidism Pituitary macroadenoma Pituitary tumor Cognitive decline Surgical History S/P excision of lipoma History of surgery Family History (Updated 02/26/24 @ 14:13 by TASH Gaxiola) Father Medical history unknown Mother Medical history unknown Social History Housing: House Alcohol intake: former Patient Tobacco Use Status: Former Tobacco user Tobacco use type: Cigarette e-Cigarette/Vaping Use: Never Used Second Hand Smoke Exposure: No Advance Directives Date on File: 03/09/21 service: No Current occupational status: retired Current occupation: right handed Cognitive needs: No Hearing needs: No Vision needs: Yes (glasses) Questionnaire PHQ-9 Over the last 2 weeks, how often have you been bothered by any of the following problems? 1. Little interest or pleasure in doing things: not at all 2. Feeling down, depressed, or hopeless: not at all 3. Trouble falling or staying asleep, or sleeping too much: not at all 4. Feeling tired or having little energy: not at all 5. Poor appetite or overeating: not at all 6. Feeling bad about yourself - or that you are a failure or have let yourself or your family down: not at all 7. Trouble concentrating on things, such as reading the newspaper or watching television: not at all 8. Moving or speaking so slowly that other people could have noticed. Or the opposite - being so fidgety or restless that you have been moving around a lot more than usual: not at all 9. Thoughts that you would be better off or of hurting yourself in some way: not at all Total score: 0 Depression Screening Interpretation: Negative Depression Screening Done: Yes 16057 - PHQ-9 Billing: Yes Source: Developed by Drs. Iftikhar Vickers, Tamiko Fan, Jose D Tuttle and colleagues, with an educational deon from [employer]. Thrive Questionnaire Date Thrive assessed: 02/26/24 I am a: Patient What is your living situation today?: I have a steady place to live Within the past 12 months, did the food you bought not last and you didn't have the money to get more?: Never true Within the past 12 months, did you worry whether your food would run out before you got money to buy more?: Never true Do you have trouble paying for medicines?: No Do you have trouble getting transportation to medical appointments?: No Do you have trouble paying your heating and electricity bill?: No Do you have trouble taking care of your child, family member or friend?: No Do you have trouble with day-to-day activities such as bathing, preparing meals, shopping, managing finances, etc.?: No Are you currently unemployed and looking for a job?: No Are you interested in more education?: No Please select the resources that you would like help with: None THRIVE Score: 0 AUDIT C Alcohol Use Questionnaire (AUDIT-C) 1. How often do you have a drink containing alcohol?: Monthly or less 2. How many drinks containing alcohol do you have on a typical day when you are drinking?: 1 or 2 3. How often do you have six or more drinks on one occasion?: Never Total Score: 1 Score Reviewed/Action Taken: Yes BRUNO-7 AMB Questionnaire BRUNO-7 Date BRUNO - 7 assessed: 02/26/24 Feeling nervous, anxious, or on edge: 0 = Not at all Not being able to stop or control worryin = Not at all Worrying too much about different things: 0 = Not at all Trouble relaxin = Not at all Being so restless that it is hard to sit still: 0 = Not at all Becoming easily annoyed or irritable: 0 = Not at all Feeling afraid as if something awful might happen: 0 = Not at all Total BRUNO-7 score (0-4 normal; 5-9 mild; 10-14 moderate; 15-21 severe): 0 Source: Developed by Drs. Iftikhar Vickers, Tamiko Fan, Jose D Tuttle and colleagues, with an educational deon from [employer]. BRUNO-7 Assessment Billing BRUNO-7 Assessment Tool: BRUNO-7 Assessment 35021 Review of Systems Const Denies chills, Denies fatigue, Denies headache(s) and Denies weight loss Eyes Denies change in vision, Denies diplopia and Denies eye pain ENT Denies vertigo, Denies dizziness, Denies headache(s) and Denies nasal discharge Card Denies chest pain, Denies rapid heart rate and Denies dyspnea on exertion Resp Denies chest congestion, Denies cough, Denies pain with cough and Denies dyspnea on exertion GI Denies abdominal pain, Denies hematochezia and Denies change in bowel habits Musc Denies myalgias, Denies arthralgias and Denies joint swelling Skin/Breast Denies lesions and Denies unusual bruising Neuro Denies vertigo, Denies dizziness, Denies headache(s) and Denies focal weakness Endo Denies fatigue Physical exam (Primary Care) Vital Signs: Last Vital Signs Pulse 70 02/26/24 14:12 BP 114/70 02/26/24 14:12 Pulse Ox 98 02/26/24 14:12 Oxygen Delivery Method Room Air 02/26/24 14:12 BMI result Body Mass Index 37.0 Tobacco/Smoking Status: Tobacco use Status Tobacco use date assessed 02/26/24 02/26/24 14:18 Patient Tobacco Use Status Former Tobacco user 02/26/24 14:18 Tobacco use type Cigarette 02/26/24 14:18 e-Cigarette/Vaping Use Never Used 02/26/24 14:18 PHQ-9: PHQ-9 Score PHQ-9: Total score 0 02/26/24 14:29 Depression Screening Interpretation: Negative Thrive Assessment: Date of Thrive Assessment Date Thrive assessed 02/26/24 02/26/24 14:18 Const General: cooperative, healthy appearing and no acute distress Orientation/consciousness: oriented to person, oriented to place and oriented to time HENMT Head: Yes normal to inspection, Yes normocephalic and Yes atraumatic Mouth: Normal oral and palatal mucosa present and tongue normal Throat: Yes posterior oropharynx normal and Yes uvula midline Eyes General: appearance normal, both eyes and all related structures Neck Neck: Yes normal visual inspection, Yes full ROM and Yes no lymphadenopathy Thyroid: Thyroid normal Carotids: normal carotid upstroke Chest Chest palpation & inspection: normal inspection of the chest Resp Effort & Inspection: normal respiratory effort and able to speak in complete sentences Auscultation: clear to auscultation bilaterally Cardio Jugular venous distension: no JVD Palpation: normal PMI Rate: regular rate Rhythm: regular rhythm Heart sounds: S1 normal heart sound present and S2 normal heart sound present GI Inspection: Yes normal to inspection Palpation (GI): Soft to palpation and No hepatosplenomegaly present Auscultation: normal bowel sounds General: Yes no CVA tenderness Back/Spine/Pelvis Back: no CVA tenderness Skin General skin exam: no rashes or lesions noted Neuro General: oriented to person, oriented to place and oriented to time Extrem General: Yes normal to inspection and Yes full ROM Assessment and Plan Assessment & Plan (1) Physical exam: Code(s): Z00.00 - Encounter for general adult medical examination without abnormal findings Plan: stable (2) Hypopituitarism: Code(s): E23.0 - Hypopituitarism Plan: stable; per endo Orders: Orders Complete Blood Count Auto Diff Today Z13.0 - Encounter for screening for diseases of the blood and blood-forming organs and certain disorders involving the immune mechanism Comprehensive [place]. Panel Fast Today Z13.9 - Encounter for screening, unspecified Thyroid Stimulating Hormone Today Z13.29 - Encounter for screening for other suspected endocrine disorder Lipid Panel Today Z13.220 - Encounter for screening for lipoid disorders Coding Level of Care Code Est Pt Prev Care >65y(26297) Diagnoses Physical exam Z00.00 Hypopituitarism E23.0 Additional Codes BRUNO-7 Assessment Billing - BRUNO-7 Assessment Tool: BRUNO-7 Assessment 97897 ([id number])
== END 2024-02-26 14:33 | disposition home or self-care (01) ==
PROVIDERS: PCP Internal Medicine; Visit Provider Internal Medicine
DX: Z00.00 Encounter for general adult medical examination without abnormal findings (principal); E23.0 Hypopituitarism; E03.9 Hypothyroidism, unspecified
CPT/HCPCS: 99397

== ENCOUNTER 2024-04-02 09:33 | Outpatient (REF) | payer MEDICARE, SELFPAY ==
[2024-04-02 10:46] LABS: Free T4 (Free Thyroxine) 0.82 ng/dL (0.71-1.85); Thyroid Stimulating Hormone 1.06 uIU/mL (0.32-4.0)
[2024-04-02 11:17] LABS: Cortisol Random 11.6 ug/dL
[2024-04-04 04:59] LABS: Triiodothyronine T3 Total 94 ng/dL (76-181)
[2024-04-04 06:43] LABS: Follicle Stimulating Hormone 3.9 mIU/mL (1.4-12.8); Lutenizing Hormone 1.6 mIU/mL (1.6-15.2); Prolactin Undiluted 14.8 ng/mL (2.0-18.0)
[2024-04-07 14:28] LABS: Adrenocorticotropic Hormone 23 pg/mL (6-50)
[2024-04-08 21:53] LABS: Estradiol Ultra Sensitive 4 pg/mL (< OR = 29)
[2024-04-11 14:18] LABS: Insulin Growth Factor 2 258 ng/mL (267-616)
[2024-04-11 14:23] LABS: Testosterone, Total 24 ng/dL (250-1100)
== END 2024-04-02 09:34 | disposition home or self-care (01) ==
LOC: HO.LAB 09:33
PROVIDERS: Absent Provider Internal Medicine; PCP Internal Medicine; Visit Provider Neurological Surgery
DX: D35.2 Benign neoplasm of pituitary gland (principal)
CPT/HCPCS: 36415; 82024; 82533; 82670; 83001; 83002; 83519; 83789; 84146; 84403; 84439; 84443; 84480

== ENCOUNTER 2024-07-17 15:06 | Outpatient (AMB) | payer MEDICARE, SELFPAY ==
[2024-07-17 15:08] VITALS: BP 100/70; PULSE 128
--- NOTE | 2024-07-17 15:08 | MHC.OFFVIS ---
Vital Signs 07/17/24 15:08 Height 5 ft 6 in BP 100/70 Blood Pressure Location Lt brachial Position Sitting Pulse 128 H Pulse Source Pulse Oximeter Intake Visit Reasons: Hypopituitarism-conf Intake Note: Patient present today for Hypopituitarism follow up visit. 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 Vail at [facility] and again 03/24/[address] 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 Here with son Mickey who was providing all of the history HPI from prior visit Of note, the Patient is a very poor historian and has very little information regarding his health history. Pituitary MRI dated 12/08/2020 which revealed expansion of his pituitary macroadenoma to 3.3 cm, with mass effect on and displacement of the optic chiasm by up to 1 cm. He was having severe visual field deficits at that time. He was referred emergently to [facility] Neurosurgery and he underwent surgical debulking by Dr. Lyndsay Suarez 03/24/2021. Postoperative labs remained WNL in terms of Cortisol and sodium. He had a repeat Pituitary MRI which revealed postoperative decompression of the optic nerves. He had a repeat Pituitary MRI 02/10/2022 which revealed the pituitary tumor to be 2.3 cm in maximal dimension, and not compressing the optic chiasm though it does come within 1 mm of the optic chiasm. He was asked to follow up with Neurosurgery, but his insurance was no longer accepted by [facility] Neurosurgery so he did see Dr. Bakari Dolan at [facility]. 12/21/22 . He did have a repeat pituitary MRI 02/13/23 which was largely unchanged. He was also noted to have hypogonadism with low testosterone and has consistently refused testosterone supplementation. DXA scan 2021 which revealed osteopenia of the hip. He then did agree to testosterone supplementation and was started on androgel packets. He has been noncompliant with these. Interval history He last saw Dr. Remy in March 2023 Has not been using testosterone whihc was prescribed Patient's son endorses patient saw neurosurgery this year at Dr. Dolan office, I do not see these records we will obtain. He has been taking levothyroxine 112 mcg daily, skipped a few days recently but otherwise says he is adherent Takes it appropriately. Reports bowel movements are regulat No constipation no diarrhea No major weight changes No palpitations, no tremors No nausea, no vomiting No lightheadness, no dizziness Reports 2 falls in the last 2-3 months , says he trips Denies abd pain. Reports no vision chnages. Lives by himself , takes care of his own meds , independent for most of his care Gets meals on wheels Physical exam General: sitting comfortably in no acute distress HEENT: normocephalic/atraumatic, moist oral mucosa Neck: supple, symmetrical, no thyromegaly , no dorsocervical or supraclavicular fat pads Cardiac: normal heart sounds Pulm: normal breath sounds B/L, no added breath sounds Abd: not distended, no tenderness Laboratory Tests 11/20/19 12/04/20 02/24/21 14:45 07:40 10:30 Hgb Hct AST ALT Alkaline Phosphatase Alpha Subunit Marker PSA Screen Free T4 1.30 1.02 TSH 0.10 L 0.01 L Total T3 110 FSH 2.3 Luteinizing Hormone 0.6 L Estradiol Ultra LCMSMS Prolactin Undiluted 14.2 Total Testosterone 12 L Fr Testosterone Dialys 1.5 L Sex Hormone Bind Glob 38 Somatomedin-C 41 Somato-C Z-Score Male Insulin-like GF II Cortisol Baseline Cortisol 30 Minute Cortisol 60 Minute Random Cortisol ACTH 28 05/12/21 05/23/21 11/17/21 07:30 08:37 12:41 Hgb Hct AST ALT Alkaline Phosphatase Alpha Subunit Marker PSA Screen Free T4 0.88 1.02 TSH 0.06 L 0.05 L Total T3 111 120 FSH 2.0 2.8 Luteinizing Hormone 0.9 L 1.2 L Estradiol Ultra LCMSMS Prolactin Undiluted 12.5 12.1 Total Testosterone 11 L 14 L Fr Testosterone Dialys 1.5 L 2.2 L Sex Hormone Bind Glob 29 38 Somatomedin-C 51 49 Somato-C Z-Score Male Insulin-like GF II Cortisol Baseline 10.0 Cortisol 30 Minute 33.4 Cortisol 60 Minute 39.6 Random Cortisol ACTH 20 22 080211/22/22 11/22/22 10:07 09:49 09:49 Hgb Hct AST ALT Alkaline Phosphatase Alpha Subunit Marker PSA Screen 0.31 Free T4 0.99 1.12 TSH 0.11 L 0.08 L 0.08 L Total T3 113 FSH 3.3 Luteinizing Hormone 1.1 L Estradiol Ultra LCMSMS Prolactin Undiluted 11.1 Total Testosterone 20 L Fr Testosterone Dialys 2.4 L Sex Hormone Bind Glob 38 Somatomedin-C Somato-C Z-Score Male Insulin-like GF II Cortisol Baseline Cortisol 30 Minute Cortisol 60 Minute Random Cortisol 10.5 10.6 ACTH 31 21 11/22/22 12/12/22 12/23/22 Unknown 08:31 11:35 Hgb 13.7 L Hct 43.5 AST ALT Alkaline Phosphatase Alpha Subunit Marker PSA Screen Free T4 TSH Total T3 106 FSH 3.5 Luteinizing Hormone 1.7 Estradiol Ultra LCMSMS Prolactin Undiluted 14.3 Total Testosterone 23 L Fr Testosterone Dialys 3.0 L Sex Hormone Bind Glob 44 Somatomedin-C Somato-C Z-Score Male Insulin-like GF II Cortisol Baseline 8.3 Cortisol 30 Minute 34.7 Cortisol 60 Minute 40.8 Random Cortisol ACTH 6 12/29/22 02/02/23 03/23/23 08:20 09:55 08:25 Hgb Hct AST ALT Alkaline Phosphatase Alpha Subunit Marker PSA Screen Free T4 0.86 TSH 0.25 L Total T3 104 FSH 3.4 Luteinizing Hormone 1.4 L Estradiol Ultra LCMSMS Prolactin Undiluted 11.2 Total Testosterone 24 L 26 L Fr Testosterone Dialys 3.1 L 3.2 L Sex Hormone Bind Glob 38 44 Somatomedin-C 40 Somato-C Z-Score Male -1.7 Insulin-like GF II Cortisol Baseline 8.5 Cortisol 30 Minute 30.8 Cortisol 60 Minute 36.3 Random Cortisol 19.5 ACTH 6 38 11/16/23 04/02/24 08:57 09:59 Hgb 14.7 Hct 46.0 AST 15 ALT 15 Alkaline Phosphatase 86 Alpha Subunit Marker 0.2 PSA Screen Free T4 0.82 TSH 1.56 1.06 Total T3 94 FSH 3.9 Luteinizing Hormone 1.6 Estradiol Ultra LCMSMS 4 Prolactin Undiluted 14.8 Total Testosterone 24 L Fr Testosterone Dialys Sex Hormone Bind Glob Somatomedin-C Somato-C Z-Score Male Insulin-like GF II 258 L Cortisol Baseline Cortisol 30 Minute Cortisol 60 Minute Random Cortisol 11.6 ACTH 23 Imaging Pituitary MRI: 02/10/2022 FINDINGS: Sellar and suprasellar enhancing lesion is decreased in size compared with 12/08/2020 currently measuring 1.8 cm x 1.6 cm x 2.3 cm (SI by AP by lateral). In similar dimensions, this lesion previously measured 3.3 cm x 1.9 cm x 2.9 cm on the study of 12/08/2020. The lesion comes to within 1 mm proximity of the inferior margin of the optic chiasm. The optic chiasm appears atrophic. The lesion partially extends into the clivus unchanged in extent compared with 12/08/2020. The lesion extends the left and right cavernous sinuses without crossing the medial carotid lines bilaterally. Normal flow-related signal intensity is noted in the cavernous portions of the internal carotid arteries. The lesion partially effaces the suprasellar cistern. The pituitary stalk is midline. Partial ethmoidectomies and additional findings related to the previously described transsphenoidal deep bulking of the previously identified pituitary macroadenoma are again visualized. Chronic encephalomalacia within the parasagittal anterior left frontal lobe is again noted. Elsewhere, moderate diffuse commensurate prominence of ventricles and sulci is noted along with mild periventricular white matter patchy T2 hyperintensities. Partial visualization is made of the previously noted left posterior cervical subcutaneous lipoma measuring approximately 8 cm in maximum transaxial dimension. No acute intracranial hemorrhage or acute infarcts are demonstrated. MR/MR head/brain wo/w con IMPRESSION: ? 1. Pituitary macroadenoma decreased in size compared with 12/08/2020. The lesion previously exerted mass effect upon the optic chiasm and currently comes to within 1 mm proximity of the optic chiasm without impinging upon the optic chiasm. The lesion demonstrates invasion of the clivus unchanged in extent compared with 12/08/2020. 2. Chronic postoperative findings status post transsphenoidal tumor debulking. 3. 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 4. Partially visualized left posterior cervical subcutaneous lipoma grossly unchanged compared with 09/27/2015. DXA: 06/06/2022 FINDINGS: AP SPINE L1-L4: BMD 1.195 g/cm2, Z-score -0.4, T-score -0.2, normal. LEFT FEMUR, NECK: BMD 0.808 g/cm2, Z-score -1.2, T-score -2.0, osteopenia. LEFT FEMUR, TOTAL: BMD 0.869 g/cm2, Z-score -1.3, T-score -1.6, osteopenia. LEFT FOREARM RADIUS 33%: BMD 0.910 g/cm2, Z-score 0.1, T-score -0.8, normal. Labs: [facility] Medical History Vitamin D deficiency Osteopenia Hypopituitarism Hypogonadotropic hypogonadism Obesity Hypothyroidism Pituitary macroadenoma Pituitary tumor Cognitive decline Surgical History S/P excision of lipoma History of surgery Family History (Updated 02/26/24 @ 14:13 by TASH Gaxiola) Father Medical history unknown Mother Medical history unknown Social History Housing: House Alcohol intake: former Patient Tobacco Use Status: Former Tobacco user Tobacco use type: Cigarette e-Cigarette/Vaping Use: Never Used Second Hand Smoke Exposure: No Advance Directives Date on File: 03/09/21 service: No Current occupational status: retired Current occupation: right handed Cognitive needs: No Hearing needs: No Vision needs: Yes (glasses) Assessment & Plan Assessment & Plan (1) Hypothyroidism: Code(s): E03.9 - Hypothyroidism, unspecified Category: Medical Qualifiers: Hypothyroidism type: other Qualified Code(s): E03.8 - Other specified hypothyroidism Plan: Patient with central hypothyroidism. He remains on Levothyroxine 112 mcg PO daily. TFTs at goal from March 2024. No changes. It is important to note that his TSH is unusable given his Pituitary issues. Adjustments to his levothyroxine dose must be made based on his FT4. Plan: -ordered TSH, free T4 -continue levothyroxine 112 mcg daily (2) Hypogonadotropic hypogonadism: Code(s): E23.0 - Hypopituitarism Category: Medical Plan: Patient with hypogonadotropic hypogonadism. We reviewed that his testosterone levels are low. We reviewed this can lead to Osteoporosis as well as sexual dysfunction. We reviewed the indication for testosterone replacement. He has consistently refused. His DXA May 2022 did show osteopenia of the hip. We reviewed this in detail. Due to the Patient's cognitive disability from his TBI he is unable to administer injections at home. He is willing to start transdermal application now, I have prescribed him testosterone 1.62% 40.5 mg gel packet daily Previously discuss potential ADRs of polycythemia, BPH and prostate cancer. Plan: -start testosterone 1.62% 40.5 mg gel packet daily -ordered testosterone, LH, FSH levels to be done now -ordered PSA level and CBC to be done now -we will plan to repeat testosterone, CBC, PSA in 3 months for monitoring (3) Hypopituitarism: Code(s): E23.0 - Hypopituitarism Category: Medical Plan: Patient with central hypothyroidism and hypogonadotropic hypogonadism. IGF noted to be at the lower end of normal. Growth hormone replacement not discussed given he already has a lot of her lines to taking testosterone and levothyroxine. Cortisol and ACTH within good range she does not have any signs or symptoms of adrenal insufficiency. We will repeat pituitary panel. (4) Osteopenia: Code(s): M85.80 - Other specified disorders of bone density and structure, unspecified site Category: Medical Qualifiers: Osteopenia location: hip Laterality: left Qualified Code(s): M85.852 - Other specified disorders of bone density and structure, left thigh Plan: Patient with Osteopenia of the hip. FRAX score is 8.4% for a major osteoporotic fracture, and 2.7% for a hip fracture. No indication for treatment at this time. Due for repeat bone density. Plan: -ordered bone density scan (5) Pituitary macroadenoma: Code(s): D35.2 - Benign neoplasm of pituitary gland Category: Medical Plan: Patient with a nonsecreting Pituitary macroadenoma now s/p a second transphenoidal debulking surgery by Dr. Lyndsay Suarez 03/24/2021. Repeat MRI revealed postoperative decompression of the optic nerves, with pituitary mass now measuring 2.3 cm. This does come within 1 mm of the optic chiasm. He was last seen by Dr. Suarez 05/09/2021. His insurance is no longer accepted by [facility]. He follows with Dr. Dolan at [facility] . Pituitary MRI 02/13/2023 showed stable size of the adenoma. Patient's son endorses the followed with Dr. Dolan more recently and had an even more recent MRI. I do not see this in the chart, we will obtain records. Plan I spent 45 minutes in reviewing the record, seeing the patient and documenting in the medical record. Orders: Orders Testosterone, Free/Total Today E03.9 - Hypothyroidism, unspecified, E23.0 - Hypopituitarism Free T4 (Free Thyroxine) Today E03.9 - Hypothyroidism, unspecified, E23.0 - Hypopituitarism Prolactin Today E03.9 - Hypothyroidism, unspecified, E23.0 - Hypopituitarism Prostate Specific Antigen Today E03.9 - Hypothyroidism, unspecified, E23.0 - Hypopituitarism Adrenocorticotropic Hormone Today E03.9 - Hypothyroidism, unspecified, E23.0 - Hypopituitarism Cortisol Random Today E03.9 - Hypothyroidism, unspecified, E23.0 - Hypopituitarism XR DEXA axial skeleton Today E23.0 - Hypopituitarism, M85.80 - Other specified disorders of bone density and structure, unspecified site Bioavailable Testosterone Today E03.9 - Hypothyroidism, unspecified, E23.0 - Hypopituitarism Lutenizing Hormone Today E03.9 - Hypothyroidism, unspecified, E23.0 - Hypopituitarism Follicle Stimulating Hormone Today E03.9 - Hypothyroidism, unspecified, E23.0 - Hypopituitarism TSH reflex Free T4 Today E03.9 - Hypothyroidism, unspecified, E23.0 - Hypopituitarism Hematocrit Today E03.9 - Hypothyroidism, unspecified, E23.0 - Hypopituitarism Hemoglobin Today E03.9 - Hypothyroidism, unspecified, E23.0 - Hypopituitarism Sex Hormone Binding Globulin Today E03.9 - Hypothyroidism, unspecified, E23.0 - Hypopituitarism Alpha Subunit Today E03.9 - Hypothyroidism, unspecified, E23.0 - Hypopituitarism Medications: New testosterone 1 packet transdermal DAILY 75 grams 5RF Refilled levothyroxine 112 mcg PO QAM 90 days 90 tabs 11RF Patient Instructions: Continue levothyroxine 112 mcg daily Start testosterone gel one packet daily Get bone density done , someone irvingl call you to schedule this or you call to schedule DO labs fasting 8 AM and repeat labs in 3 months Orders will be in lab I will see you back in 6 months Coding Level of Care Code Est Pt Level 4 (19949) Diagnoses Other specified hypothyroidism E03.8 Hypothyroidism type: other Hypogonadotropic hypogonadism E23.0 Hypopituitarism E23.0 Osteopenia of left hip M85.852 Osteopenia location: hip Laterality: left Pituitary macroadenoma D35.2 Time Spent (min) 45
== END 2024-07-17 16:04 | disposition home or self-care (01) ==
LOC: HO.ENCR 15:06
PROVIDERS: PCP Internal Medicine; Visit Provider Student in an Organized Health Care Education/Training Program
DX: E03.8 Other specified hypothyroidism (principal); E23.0 Hypopituitarism; M85.852 Other specified disorders of bone density and structure, left thigh; D35.2 Benign neoplasm of pituitary gland
CPT/HCPCS: 99214

== ENCOUNTER → 2024-07-17 15:06 | Outpatient (BNVA) | payer MEDICARE, SELFPAY | PROVIDERS: PCP Internal Medicine; Visit Provider Student in an Organized Health Care Education/Training Program | DX: E03.8 Other specified hypothyroidism (principal); E23.0 Hypopituitarism; D35.2 Benign neoplasm of pituitary gland; M85.80 Other specified disorders of bone density and structure, unspecified site; M85.852 Other specified disorders of bone density and structure, left thigh | CPT/HCPCS: 99212 ==

== ENCOUNTER 2024-12-06 09:31 | Outpatient (REF) | payer MEDICARE, SELFPAY ==
[2024-12-06 09:58] LABS: MANUAL DIFF FLAG NO
[2024-12-06 10:01] LABS: Basophils Absolute Auto 0.1 X10*3/uL (0.0-0.2); Basophils Percent Auto 0.7 % (0-2); Eosinophils Absolute Auto 0.2 X10*3/uL (0.0-0.4); Eosinophils Percent Auto 2.3 % (0-4); Hematocrit 43.6 % (42.0-52.0); Hemoglobin 14.2 g/dl (14.0-18.0); Imm Gran Abs Auto 0.05 X10*3/uL (0.00-0.03); Imm Gran Pct Auto 0.5 % (0.0-0.4); Lymphocytes Absolute Auto 3.5 X10*3/uL (1.2-4.9); Lymphocytes Percent Auto 33.5 % (20-40); Mean Corpuscular HGB Conc 32.6 g/dl (31.0-36.0); Mean Platelet Volume 9.6 fL (9.4-12.4); Monocytes Absolute Auto 0.6 X10*3/uL (0.1-1.2); Monocytes Percent Auto 5.6 % (2-11); Neutrophils Percent Auto 57.4 % (45-73); Platelet Count 205 X10*3/uL (160-400); Red Blood Count 5.07 X10*6/uL (4.60-5.80); Red Cell Distribution Width 14.5 % (11.0-16.0); White Blood Count 10.4 X10*3/uL (4.8-10.8)
[2024-12-06 10:37] LABS: Cortisol Random 15.4 ug/dL; Prostate Specific Antigen 0.44 ng/mL (<0.05-4.0)
[2024-12-06 10:38] LABS: Alanine Aminotransferase 20 U/L (0-40); Albumin Level 3.9 g/dL (3.5-5.0); Alkaline Phosphatase 91 U/L (39-117); Anion Gap 13 (12-20); Aspartate Amino Transferase 25 U/L (5-37); Bilirubin Total 0.5 mg/dL (0.0-1.0); Blood Urea Nitrogen 30 mg/dL (9-16); Carbon Dioxide 18 mmol/L (22-29); Chloride 112 mmol/L (96-108); Cholesterol 148 mg/dL (<200); Estimated Glomerular Filt Rate > 60; Free T4 (Free Thyroxine) 0.77 ng/dL (0.71-1.85); Glucose Fasting 111 mg/dL (60-99); HDL Cholesterol 38 mg/dL (>40); LDL Cholesterol Calculated 89 mg/dL (<100); Potassium 4.3 mmol/L (3.3-5.1); Sodium 139 mmol/L (135-145); TSH reflex Free T4 0.84 uIU/mL (0.32-4.0); Thyroid Stimulating Hormone 0.84 uIU/mL (0.32-4.0); Triglycerides 107 mg/dL (<150)
[2024-12-08 11:04] LABS: Follicle Stimulating Hormone 3.5 mIU/mL (1.4-12.8); Lutenizing Hormone 1.8 mIU/mL (1.6-15.2); Prolactin 14.6 ng/mL (2.0-18.0)
[2024-12-11 02:33] LABS: Adrenocorticotropic Hormone 13 pg/mL (6-50)
[2024-12-12 08:28] LABS: Sex Hormone Binding Globulin 36.7 nmol/L (22-77); Testosterone-Bioavailable 5.9 ng/dL (15.0-150.0); Testosterone-Free 3.2 pg/mL (6.0-73.0); Testosterone-Total 29 ng/dL (250-1100)
== END 2024-12-06 09:32 | disposition home or self-care (01) ==
LOC: HO.LAB 09:31
PROVIDERS: Internal Medicine; Visit Provider Student in an Organized Health Care Education/Training Program
DX: E23.0 Hypopituitarism (principal); E03.9 Hypothyroidism, unspecified; Z13.29 Encounter for screening for other suspected endocrine disorder; Z13.0 Encounter for screening for diseases of the blood and blood-forming organs and certain disorders involving the immune mechanism; Z13.220 Encounter for screening for lipoid disorders; Z12.5 Encounter for screening for malignant neoplasm of prostate
CPT/HCPCS: 36415; 80053; 80061; 82024; 82533; 83001; 83002; 83519; 84146; 84153; 84270; 84402; 84403; 84439; 84443; 85025

== ENCOUNTER 2025-01-15 14:39 | Outpatient (AMB) | payer BC, MEDICARE, SELFPAY ==
[2025-01-15 14:41] VITALS: BP 130/72; PULSE 72; O2SAT 98; BMI 38.2
--- NOTE | 2025-01-15 14:41 | MHC.OFFVIS ---
Vital Signs 01/15/25 14:41 Height 5 ft 6 in Weight 236 lb 8.896 oz BMI 38.2 BP 130/72 Blood Pressure Location Lt brachial Position Sitting Pulse 72 Pulse Source Pulse Oximeter Pulse Oximetry (%) 98 Oxygen Delivery Method Room Air Intake Visit Reasons: Hypogonadotropic hypogonadism Intake Note: Patient present today for Hypogonadotropic and hypogonadism. 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 Vail at [facility] and again 03/24/[address] 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 Here with son Mickey who was providing all of the history HPI from prior visit Of note, the Patient is a very poor historian and has very little information regarding his health history. Pituitary MRI dated 12/08/2020 which revealed expansion of his pituitary macroadenoma to 3.3 cm, with mass effect on and displacement of the optic chiasm by up to 1 cm. He was having severe visual field deficits at that time. He was referred emergently to [facility] Neurosurgery and he underwent surgical debulking by Dr. Lyndsay Suarez 03/24/2021. Postoperative labs remained WNL in terms of Cortisol and sodium. He had a repeat Pituitary MRI which revealed postoperative decompression of the optic nerves. He had a repeat Pituitary MRI 02/10/2022 which revealed the pituitary tumor to be 2.3 cm in maximal dimension, and not compressing the optic chiasm though it does come within 1 mm of the optic chiasm. He was asked to follow up with Neurosurgery, but his insurance was no longer accepted by [facility] Neurosurgery so he did see Dr. Bakari Dolan at [facility]. 12/21/22 . He did have a repeat pituitary MRI 02/13/23 which was largely unchanged. He was also noted to have hypogonadism with low testosterone and has consistently refused testosterone supplementation. DXA scan 2021 which revealed osteopenia of the hip. He then did agree to testosterone supplementation and was started on androgel packets. He has been noncompliant with these. Interval history 07/17/[address] Remy in March 2023 Has not been using testosterone whihc was prescribed Patient's son endorses patient saw neurosurgery this year at Dr. Dolan office, I do not see these records we will obtain. He has been taking levothyroxine 112 mcg daily, skipped a few days recently but otherwise says he is adherent Takes it appropriately. Reports bowel movements are regulat No constipation no diarrhea No major weight changes No palpitations, no tremors No nausea, no vomiting No lightheadness, no dizziness Reports 2 falls in the last 2-3 months , says he trips Denies abd pain. Reports no vision chnages. Lives by himself , takes care of his own meds , independent for most of his care Gets meals on wheels Interval history 01/15/2025 He thinks he is taking levothyroxine 112 mcg daily, not completely sure Denies nausea, vomiting, any major changes to weight or bowel movements Says he thinks he is doing well No fractures Still has not started using the testosterone gel but again says during today's visit that he would like to try Physical exam General: sitting comfortably in no acute distress HEENT: normocephalic/atraumatic, moist oral mucosa Neck: supple, symmetrical, no thyromegaly , no dorsocervical or supraclavicular fat pads Cardiac: normal heart sounds Pulm: normal breath sounds B/L, no added breath sounds Abd: not distended, no tenderness Laboratory Tests 11/20/19 12/04/20 02/24/21 14:45 07:40 10:30 Hgb Hct AST ALT Alkaline Phosphatase Alpha Subunit Marker PSA Screen Free T4 1.30 1.02 TSH 0.10 L 0.01 L Total T3 110 FSH 2.3 Luteinizing Hormone 0.6 L Estradiol Ultra LCMSMS Prolactin Undiluted 14.2 Total Testosterone 12 L Fr Testosterone Dialys 1.5 L Sex Hormone Bind Glob 38 Somatomedin-C 41 Somato-C Z-Score Male Insulin-like GF II Cortisol Baseline Cortisol 30 Minute Cortisol 60 Minute Random Cortisol ACTH 28 05/12/21 05/23/21 11/17/21 07:30 08:37 12:41 Hgb Hct AST ALT Alkaline Phosphatase Alpha Subunit Marker PSA Screen Free T4 0.88 1.02 TSH 0.06 L 0.05 L Total T3 111 120 FSH 2.0 2.8 Luteinizing Hormone 0.9 L 1.2 L Estradiol Ultra LCMSMS Prolactin Undiluted 12.5 12.1 Total Testosterone 11 L 14 L Fr Testosterone Dialys 1.5 L 2.2 L Sex Hormone Bind Glob 29 38 Somatomedin-C 51 49 Somato-C Z-Score Male Insulin-like GF II Cortisol Baseline 10.0 Cortisol 30 Minute 33.4 Cortisol 60 Minute 39.6 Random Cortisol ACTH 20 04/11/22 11/22/22 11/22/22 10:07 09:49 09:49 Hgb Hct AST ALT Alkaline Phosphatase Alpha Subunit Marker PSA Screen 0.31 Free T4 0.99 1.12 TSH 0.11 L 0.08 L 0.08 L Total T3 113 FSH 3.3 Luteinizing Hormone 1.1 L Estradiol Ultra LCMSMS Prolactin Undiluted 11.1 Total Testosterone 20 L Fr Testosterone Dialys 2.4 L Sex Hormone Bind Glob 38 Somatomedin-C Somato-C Z-Score Male Insulin-like GF II Cortisol Baseline Cortisol 30 Minute Cortisol 60 Minute Random Cortisol 10.5 10.6 ACTH 31 21 11/22/22 12/12/22 12/23/22 Unknown 08:31 11:35 Hgb 13.7 L Hct 43.5 AST ALT Alkaline Phosphatase Alpha Subunit Marker PSA Screen Free T4 TSH Total T3 106 FSH 3.5 Luteinizing Hormone 1.7 Estradiol Ultra LCMSMS Prolactin Undiluted 14.3 Total Testosterone 23 L Fr Testosterone Dialys 3.0 L Sex Hormone Bind Glob 44 Somatomedin-C Somato-C Z-Score Male Insulin-like GF II Cortisol Baseline 8.3 Cortisol 30 Minute 34.7 Cortisol 60 Minute 40.8 Random Cortisol ACTH 6 12/29/22 02/02/23 03/23/23 08:20 09:55 08:25 Hgb Hct AST ALT Alkaline Phosphatase Alpha Subunit Marker PSA Screen Free T4 0.86 TSH 0.25 L Total T3 104 FSH 3.4 Luteinizing Hormone 1.4 L Estradiol Ultra LCMSMS Prolactin Undiluted 11.2 Total Testosterone 24 L 26 L Fr Testosterone Dialys 3.1 L 3.2 L Sex Hormone Bind Glob 38 44 Somatomedin-C 40 Somato-C Z-Score Male -1.7 Insulin-like GF II Cortisol Baseline 8.5 Cortisol 30 Minute 30.8 Cortisol 60 Minute 36.3 Random Cortisol 19.5 ACTH 6 38 11/16/23 04/02/24 08:57 09:59 Hgb 14.7 Hct 46.0 AST 15 ALT 15 Alkaline Phosphatase 86 Alpha Subunit Marker 0.2 PSA Screen Free T4 0.82 TSH 1.56 1.06 Total T3 94 FSH 3.9 Luteinizing Hormone 1.6 Estradiol Ultra LCMSMS 4 Prolactin Undiluted 14.8 Total Testosterone 24 L Fr Testosterone Dialys Sex Hormone Bind Glob Somatomedin-C Somato-C Z-Score Male Insulin-like GF II 258 L Cortisol Baseline Cortisol 30 Minute Cortisol 60 Minute Random Cortisol 11.6 ACTH 23 Laboratory Tests 12/06/24 09:55 Hgb 14.2 Hct 43.6 Alpha Subunit Marker 0.4 Prostate Specific Ag 0.44 TSH 0.84 Free T4 0.77 FSH 3.5 Luteinizing Hormone 1.8 Prolactin 14.6 Testosterone Level 29 L Free Testoster w SHBG 3.2 L Bioavail Testosterone 5.9 L Sex Hormone Bind Glob 36.7 Random Cortisol 15.4 ACTH 13 Imaging Pituitary MRI: 02/10/2022 FINDINGS: Sellar and suprasellar enhancing lesion is decreased in size compared with 12/08/2020 currently measuring 1.8 cm x 1.6 cm x 2.3 cm (SI by AP by lateral). In similar dimensions, this lesion previously measured 3.3 cm x 1.9 cm x 2.9 cm on the study of 12/08/2020. The lesion comes to within 1 mm proximity of the inferior margin of the optic chiasm. The optic chiasm appears atrophic. The lesion partially extends into the clivus unchanged in extent compared with 12/08/2020. The lesion extends the left and right cavernous sinuses without crossing the medial carotid lines bilaterally. Normal flow-related signal intensity is noted in the cavernous portions of the internal carotid arteries. The lesion partially effaces the suprasellar cistern. The pituitary stalk is midline. Partial ethmoidectomies and additional findings related to the previously described transsphenoidal deep bulking of the previously identified pituitary macroadenoma are again visualized. Chronic encephalomalacia within the parasagittal anterior left frontal lobe is again noted. Elsewhere, moderate diffuse commensurate prominence of ventricles and sulci is noted along with mild periventricular white matter patchy T2 hyperintensities. Partial visualization is made of the previously noted left posterior cervical subcutaneous lipoma measuring approximately 8 cm in maximum transaxial dimension. No acute intracranial hemorrhage or acute infarcts are demonstrated. MR/MR head/brain wo/w con IMPRESSION: ? 1. Pituitary macroadenoma decreased in size compared with 12/08/2020. The lesion previously exerted mass effect upon the optic chiasm and currently comes to within 1 mm proximity of the optic chiasm without impinging upon the optic chiasm. The lesion demonstrates invasion of the clivus unchanged in extent compared with 12/08/2020. 2. Chronic postoperative findings status post transsphenoidal tumor debulking. 3. 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 4. Partially visualized left posterior cervical subcutaneous lipoma grossly unchanged compared with 09/27/2015. DXA: 06/06/2022 FINDINGS: AP SPINE L1-L4: BMD 1.195 g/cm2, Z-score -0.4, T-score -0.2, normal. LEFT FEMUR, NECK: BMD 0.808 g/cm2, Z-score -1.2, T-score -2.0, osteopenia. LEFT FEMUR, TOTAL: BMD 0.869 g/cm2, Z-score -1.3, T-score -1.6, osteopenia. LEFT FOREARM RADIUS 33%: BMD 0.910 g/cm2, Z-score 0.1, T-score -0.8, normal. Labs: [facility] Medical History Vitamin D deficiency Osteopenia Hypopituitarism Hypogonadotropic hypogonadism Obesity Hypothyroidism Pituitary macroadenoma Pituitary tumor Cognitive decline Surgical History S/P excision of lipoma History of surgery Family History Father Medical history unknown Mother Medical history unknown Social History (Reviewed 01/15/25 @ 14:46 by BRANDI Blackwell Housing: House Alcohol intake: former Patient Tobacco Use Status: Former Tobacco user Tobacco use type: Cigarette e-Cigarette/Vaping Use: Never Used Second Hand Smoke Exposure: No Advance Directives Date on File: 03/09/21 service: No Current occupational status: retired Current occupation: right handed Cognitive needs: No Hearing needs: No Vision needs: Yes (glasses) Physical Exam Vital Signs: Last Vital Signs Pulse 72 01/15/25 14:41 BP 130/72 01/15/25 14:41 Pulse Ox 98 01/15/25 14:41 Oxygen Delivery Method Room Air 01/15/25 14:41 BMI result Body Mass Index 38.2 Assessment & Plan Assessment & Plan (1) Hypothyroidism: Code(s): E03.9 - Hypothyroidism, unspecified Category: Medical Qualifiers: Hypothyroidism type: other Qualified Code(s): E03.8 - Other specified hypothyroidism Plan: Patient with central hypothyroidism. He remains on Levothyroxine 112 mcg PO daily. TFTs at goal from November 2024. No changes. It is important to note that his TSH is unusable given his Pituitary issues. Adjustments to his levothyroxine dose must be made based on his FT4. Plan: -continue levothyroxine 112 mcg daily -ordered TSH, free T4 to be done with the next set of labs (2) Hypogonadotropic hypogonadism: Code(s): E23.0 - Hypopituitarism Category: Medical Plan: Patient with hypogonadotropic hypogonadism. We reviewed that his testosterone levels are low. We reviewed this can lead to Osteoporosis as well as sexual dysfunction. We reviewed the indication for testosterone replacement. He has consistently refused. His DXA May 2022 did show osteopenia of the hip. We reviewed this in detail. Due to the Patient's cognitive disability from his TBI he is unable to administer injections at home. Today again He is willing to start transdermal application now, I have prescribed him testosterone 1.62% 40.5 mg gel packet daily Previously discuss potential ADRs of polycythemia, BPH and prostate cancer. Plan: -start testosterone 1.62% 40.5 mg gel packet daily -ordered testosterone, LH, FSH levels to be done after 3 months of using testosterone -ordered PSA level and CBC to be done after 3 months of using testosterone (3) Hypopituitarism: Code(s): E23.0 - Hypopituitarism Category: Medical Plan: Patient with central hypothyroidism and hypogonadotropic hypogonadism. IGF noted to be at the lower end of normal. Growth hormone replacement not discussed given he already has a lot of hesitation to taking testosterone and levothyroxine. Cortisol and ACTH from November 2024 within good range she does not have any signs or symptoms of adrenal insufficiency. (4) Osteopenia: Code(s): M85.80 - Other specified disorders of bone density and structure, unspecified site Category: Medical Qualifiers: Osteopenia location: hip Laterality: left Qualified Code(s): M85.852 - Other specified disorders of bone density and structure, left thigh Plan: Patient with Osteopenia of the hip. FRAX score is 8.4% for a major osteoporotic fracture, and 2.7% for a hip fracture. No indication for treatment at this time. Due for repeat bone density. Plan: -ordered bone density scan again (5) Pituitary macroadenoma: Code(s): D35.2 - Benign neoplasm of pituitary gland Category: Medical Plan: Patient with a nonsecreting Pituitary macroadenoma now s/p a second transphenoidal debulking surgery by Dr. Lyndsay Suarez 03/24/2021. Repeat MRI revealed postoperative decompression of the optic nerves, with pituitary mass now measuring 2.3 cm. This does come within 1 mm of the optic chiasm. He was last seen by Dr. Suarez 05/09/2021. His insurance is no longer accepted by [facility]. He follows with Dr. Dolan at [facility] . Pituitary MRI 02/13/2023 showed stable size of the adenoma. Patient's son endorses the followed with Dr. Dolan more recently and had an even more recent MRI. I do not see this in the chart, we we made multiple attempts to obtain these records, howeverI have not been successful. I have asked patient's son if he had they can bring in the office visit notes or have them faxed over to me. Plan See above Orders: Orders Thyroid Stimulating Hormone 14 Weeks E23.0 - Hypopituitarism, M85.852 - Other specified disorders of bone density and structure, left thigh Albumin Level 14 Weeks E23.0 - Hypopituitarism, M85.852 - Other specified disorders of bone density and structure, left thigh Follicle Stimulating Hormone 14 Weeks E23.0 - Hypopituitarism, M85.852 - Other specified disorders of bone density and structure, left thigh XR DEXA axial skeleton Today E23.0 - Hypopituitarism, M85.852 - Other specified disorders of bone density and structure, left thigh Free T4 (Free Thyroxine) 14 Weeks E23.0 - Hypopituitarism, M85.852 - Other specified disorders of bone density and structure, left thigh Calcium 14 Weeks E23.0 - Hypopituitarism, M85.852 - Other specified disorders of bone density and structure, left thigh Testosterone, Free/Total 14 Weeks E23.0 - Hypopituitarism, M85.852 - Other specified disorders of bone density and structure, left thigh Lutenizing Hormone 14 Weeks E23.0 - Hypopituitarism, M85.852 - Other specified disorders of bone density and structure, left thigh Sex Hormone Binding Globulin 14 Weeks E23.0 - Hypopituitarism, M85.852 - Other specified disorders of bone density and structure, left thigh Hemoglobin 14 Weeks E23.0 - Hypopituitarism, M85.852 - Other specified disorders of bone density and structure, left thigh Hematocrit 14 Weeks E23.0 - Hypopituitarism, M85.852 - Other specified disorders of bone density and structure, left thigh Vitamin D 25-OH Total 14 Weeks E23.0 - Hypopituitarism, M85.852 - Other specified disorders of bone density and structure, left thigh PSA, Ultra Sensitive 14 Weeks E23.0 - Hypopituitarism, M85.852 - Other specified disorders of bone density and structure, left thigh Medications: Refilled testosterone 1 packet transdermal DAILY 150 grams 5RF Patient Instructions: Continue levothyroxine 112 mcg daily Your testosterone levels on your blood work are low , last time we spoke about starting testosterone gels. You said today you are not sure if you are using it, i have represcribed this. You will need to repeat blood work in 3 months after you start using this orders in place. You havent done your bone density scan, orders were placed in last visit, please schedule this, I am again ordering it today, someone will call you to schedule this. Do blood work 4-5 hours after applying the gel, in 3 months or so before your follow up appt. Coding Level of Care Code Est Pt Level 3 (29507) Diagnoses Other specified hypothyroidism E03.8 Hypothyroidism type: other Hypogonadotropic hypogonadism E23.0 Hypopituitarism E23.0 Osteopenia of left hip M85.852 Osteopenia location: hip Laterality: left Pituitary macroadenoma D35.2
--- OUTSIDE RECORDS SUMMARY | 2025-01-15 15:22 | XMS_ITS | Clinical Summary ---
Author Organization [employer] Address [address] [place] [address] Care Team Providers Care Painting Manager Name Role Phone Unavailable Primary Care Provider Unavailabl e Immunizations Name Administration Dates Next Due Moderna Covid-19 Vaccine 6+ Bivalent 09/26/2022 Social History Tobacco Use Types Packs/Day Years Used Date Smoking Tobacco: Never Assessed Sex and Gender Information Value Date Recorded Sex Assigned at Male 07/10/2022 10:31 AM EDT Legal Sex Male 10:31 AM EDT Gender Identity Not on file Sexual Orientation Not on file Plan of Treatment Health Maintenance Due Date Last Done Comments CT Colonography 1949 Colonoscopy 1949 Colorectal Cancer Screening 1949 Depression Screening 1949 FIT DNA/Cologuard 1949 FIT 1949 FOBT 1949 Lipid Panel 1950 Sigmoidoscopy 1949 Alcohol/Substance Use Screening 1961 Tobacco Screening 1961 DTaP/Tdap/Td Vaccines (1 - Tdap) 1968 COVID-19 Vaccine ( season) 2024 09/26/2022, 01/18/2022, 07/31/2021, Additional history exists Influenza Vaccine (#1) 2024 2, 06/17/2022, 07/31/2021, Additional history exists RSV Patients and Patients Aged 60 years or older (1 - 1-dose 75+ series) 2024 Pneumococcal Vaccine: 50+ Years Completed 05/21/2019, 06/07/2016, 06/07/2016 Zoster Vaccines Completed 09/28/2021, 07/24/2021 HIB Vaccines Aged Out No longer eligi ble based on patient's age to complete this topic HPV Vaccines Aged Out No longer eligi ble based on patient's age to complete this topic Hepatitis A Vaccines Aged Out No long er eligible based on patient's age to complete this topic Hepatitis B Vaccines Aged Out No long er eligible based on patient's age to complete this topic IPV Vaccines Aged Out No longer eligi ble based on patient's age to complete this topic Meningococcal Vaccine Aged Out No kristen linda eligible based on patient's age to complete this topic RSV under 20 months Aged Out No longe r eligible based on patient's age to complete this topic Rotavirus Vaccines Aged Out No longer eligible based on patient's age to complete this topic
--- OUTSIDE RECORDS SUMMARY | 2025-01-15 15:22 | XMS_ITS | Clinical Summary ---
Author Organization [facility] Address [address] [place] [address] Care Team Providers Care Sports Athletic Trainer Name Role Phone Nate Jackson MD Primary Care Provider [phone] Allergies No known active allergies Medications levothyroxine (SYNTHROID, LEVOTHROID) 112 MCG tablet Take 1 Dose by mouth daily. Active aspirin (WAYNE ASPIRIN) 325 MG tablet Take 1 tablet (325 mg total) by mouth daily. Active LORazepam (ATIVAN) 0.5 MG tabletIndicatio ns:Pituitary adenoma (HCC) Take 1 tab about 1 hour before MRI, then take 1 tab about 15 minutes before MRI. 2 tablet 01/24/2023 Active testosterone (TESTIM) 50 mg/5 g (1%) gel 12/25/2022 Act huy Active Problems Problem Noted Date Diagnosed Date Pituitary adenoma 03/23/2024 Social History Tobacco Use Types Packs/Day Years Used Date Smoking Tobacco: Former Cigarettes 3 15 Passive Smoke Exposure: Past Alcohol Use Standard Drinks/Week Comments Not Currently 0 (1 standard drink = 0.6 oz pur e alcohol) Sex and Gender Information Value Date Recorded Sex Assigned at Not on file Legal Sex Male 1:22 PM EST Gender Identity Not on file Sexual Orientation Not on file Last Filed Vital Signs Vital Sign Reading Time Taken Comments Blood Pressure 120/73 03/26/2024 3:09 PM EDT Pulse 69 03/26/2024 3:09 PM EDT Temperature 36.7 ??C (98 ??F) 12/21/2022 12:57 PM EDT Respiratory Rate 17 03/26/2024 3:09 PM EDT Oxygen Saturation 96% 03/26/2024 3:09 PM EDT Inhaled Oxygen Concentration - - Weight 107 kg (236 lb) 03/26/2024 3:09 PM EDT Height 175.3 cm (5' 9 ) 03/26/2024 3:09 PM EDT Body Mass Index 34.85 03/26/2024 3:09 PM EDT Plan of Treatment Health Maintenance Due Date Last Done Comments Hepatitis C Virus Screening 1950 DTaP/Tdap/Td Vaccines (1 - Tdap) 1968 Colonoscopy 1994 Pneumococcal Vaccines 50+ (1 of 1 - PCV) 11/29/1999 Zoster (Shingles) Vaccine (1 of 2) 11/29/1999 Abdominal Aortic Aneurysm (A AA) Screening 2014 COVID-19 Vaccine (2 - 2023-2 5 season) 2024 09/26/2022 RSV Vaccine 60 years and old er and Patients (1 - 1-dose 75+ series) 2024 Influenza Vaccine 04/10/2025 Hepatitis B Vaccines Aged Out No long er eligible based on patient's age to complete this topic Insurance [facility] [employer] MGD MEDICARE Advance Directives Documents on File Type Date Recorded Patient Manufacturing Weaver Expl anation Power of Channel Rebuilder-Scan 12/21/2022 HEALTHCARE PROXY 12/09 Care Teams Sports Athletic Trainer Relationship Specialty Start Date End Date Nate Jackson MD [address] [place] [address] PCP - General Internal Medicine 12/05/22
--- OUTSIDE RECORDS SUMMARY | 2025-01-15 15:22 | XMS_ITS | Encounter Summary ---
Author Organization Formerly [facility] Address [address] [place] [address] Care Team Providers Care Business Solutions Analyst Name Role Phone Nate Jackson MD Primary Care Provider [phone] Encounter Details Date Type Department Care Team ([facility] Contact Info) Description 01/23/2023 Telephone [facility] NEUROSRG [id number] [address] [id number] Bakari Dolan MD [address] [phone] Social History Tobacco Use Types Packs/Day Years [...] on file Sexual Orientation Not on file documented as of this encounter Miscellaneous Notes * Telephone Encounter - Delores Amanda RN - 01/23/2023 11:12 AM EDT Duplicate encounter. documented in this encounter Plan of Treatment Not on file documented as of this encounter Visit Diagnoses Not on filedocumented in this encounter Care Teams Business Solutions Analyst Relationship Specialty Start Date End Date Nate Jackson MD [address] [place] [address] [place] [id number] PCP - General Internal Medicine 12/05/22 documented as of this encounter
== END 2025-01-15 15:20 | disposition home or self-care (01) ==
PROVIDERS: PCP Internal Medicine; Visit Provider Student in an Organized Health Care Education/Training Program
DX: E03.8 Other specified hypothyroidism (principal); E23.0 Hypopituitarism; M85.852 Other specified disorders of bone density and structure, left thigh; D35.2 Benign neoplasm of pituitary gland
CPT/HCPCS: 99213

== ENCOUNTER → 2025-01-15 14:39 | Outpatient (BNVA) | payer MEDICARE, SELFPAY | PROVIDERS: PCP Internal Medicine; Visit Provider Student in an Organized Health Care Education/Training Program ==

== ENCOUNTER 2025-02-25 11:15 | Outpatient (REF) | payer MEDICARE, SELFPAY ==
--- NOTE | ~2025-02-25 | MM_ITS ---
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 COMPARISON: Comparison is made with a prior examination dated 06/06/2022. FINDINGS: The bone mineral density of the lumbar spine is 1.211, corresponding to a T-score of -0.1, and a Z-score of -0.2. This is indicative of normal bone mineral density. This represents a BMD change of 1.3% compared to the prior exam. This is not statistically significant. The bone mineral density of the left total hip is 0.870, corresponding to a T-score of -1.6, and a Z-score of -1.2. This is indicative of osteopenia. This represents a BMD change of 0.1% compared to the prior exam. This is not statistically significant. The bone mineral density of the left femoral neck is 0.860, corresponding to a T-score of -1.6, and a Z-score of -0.7. This is indicative of osteopenia. This represents a BMD change of 6.4% compared to the prior exam. FRACTURE RISK: The FRAX index suggests a ten year probability of major osteoporotic fracture of 17.1%, and of hip fracture 11.8%. MM/XR DEXA axial skeleton IMPRESSION: Based on bone mineral density, and according to World Health Organization (WHO) criteria, the diagnosis is consistent with osteopenia. All bone density values are in grams per centimeter squared (g/cm2). Statistically, 68% of repeat scans fall within 1 SD (+/- 0.010 g/cm2 for AP spine L1-L4) and 1 SD (+/- 0.012 g/cm2 for femur total) FRAX is a trademark of the [employer]'s [place], a World Health Organization (WHO) Collaborating Center. Electronically signed by: Iftikhar King MD 03/02/2025 07:05 AM EDT
--- OUTSIDE RECORDS SUMMARY | 2025-02-25 13:08 | XMS_ITS ---
Author Name [facility] Organization Unknown History of Medication Use Medication Directions Dispensed Refills Start Date End Date Stat levothyroxine (SYNTHROID, LEVOTHROID) 112 MCG tablet Take 1 Dose by mouth daily. active Problems Problem Status Onset Date Problem Type Date of Resoluti on Source Pituitary adenoma active 2024-03-23 ProblemAct CCT Encounters Encounter Type Encounter Reason Primary Diagnosis Location Date Ambulatory Benign neoplasm of pituitary gland Benign neoplasm of pituitary gland [email or web address] 03/26/2024 Ambulatory Benign neoplasm of pituitary gland [email or web address] 03/28/2023 Ambulatory Benign neoplasm of pituitary gland [email or web address] 12/21/2022 Ambulatory [facility] 10/16/2022 Care Team Organization Name Specialty Phone Email Start Date End Da te [email or web address] REANNA LUQUE Primary Care 12/21/2022 11/27/19 [email or web address] REANNA LUQUE Primary Care 12/21/2022 12/22/19 23 [email or web address] 10/16/2022 11/26/2024 [email or web address] 10/16/2022 10/16/2022
== END 2025-02-25 11:16 | disposition home or self-care (01) ==
LOC: HO.MAMMO 11:15
PROVIDERS: Absent Provider Student in an Organized Health Care Education/Training Program; Visit Provider Internal Medicine
DX: Z13.820 Encounter for screening for osteoporosis (principal); M85.852 Other specified disorders of bone density and structure, left thigh; E23.0 Hypopituitarism
CPT/HCPCS: 77080

== ENCOUNTER → 2025-02-25 11:30 | Outpatient (BNV) | payer MEDICARE, SELFPAY | PROVIDERS: Absent Provider Student in an Organized Health Care Education/Training Program; Visit Provider Radiology Diagnostic Radiology | DX: M85.89 Other specified disorders of bone density and structure, multiple sites (principal) | CPT/HCPCS: 77080 ==

== ENCOUNTER 2025-05-04 12:39 | Outpatient (AMB) | payer MEDICARE, SELFPAY ==
--- NOTE | 2025-05-04 13:03 | AM.OFFWIN_ITS ---
Intake Vital Signs 3 05/04/25 13:04 Height 5 ft 6 in BMI Reason not done Patient refused/unable BP 108/70 Blood Pressure Location Lt brachial Position Sitting Pulse 70 Pulse Source Pulse Oximeter Temp 97.9 F Temp Source Oral Pulse Oximetry (%) 98 Oxygen Delivery Method Room Air Intake Visit Reasons: EP-skin inflamation Intake Note: pt is here for under arm/pit area redness per patient this has been going on for several years but has been more irritating today. Patient Tobacco Use Status: Former Tobacco user Allergies hay fever Allergy (Unknown, Uncoded 05/04/25 13:05) Hives RAsh Do you need a note to return to daycare/school/sports/work: No HPI HPI Comments 2 History of Present Illness0 Details 74 y/o Male patient who presents to the walk in clinic with c/o Rash under Armpits and Abdominal skin Folds for months now. He has been using Abx cream and Alcohol Swabs with no relief. Reports the Rash is very itchy, burning and painful at times. [facility] Medical History (Updated 05/04/25 @ 13:28 by Mallory Garcia NP) Candidiasis, intertrigo Vitamin D deficiency Osteopenia Hypopituitarism Hypogonadotropic hypogonadism Obesity Hypothyroidism Pituitary macroadenoma Pituitary tumor Cognitive decline Surgical History S/P excision of lipoma History of surgery Family History Father Medical history unknown Mother Medical history unknown Social History Housing: House Alcohol intake: former Patient Tobacco Use Status: Former Tobacco user Tobacco use type: Cigarette e-Cigarette/Vaping Use: Never Used Second Hand Smoke Exposure: No Advance Directives Date on File: 03/09/21 service: No Current occupational status: retired Current occupation: right handed Cognitive needs: No Hearing needs: No Vision needs: Yes (glasses) Review of Systems Const All systems reviewed & are unremarkable except as noted in HPI and below Physical Exam Vital Signs: Last Vital Signs Temp 97.9 F 05/04/25 13:04 Pulse 70 05/04/25 13:04 BP 108/70 05/04/25 13:04 Pulse Ox 98 05/04/25 13:04 Oxygen Delivery Method Room Air 05/04/25 13:04 Const General: no acute distress Nutritional Appearance: obese Orientation/consciousness: patient oriented x3 Chest Chest/axillae images: 2 1. Erythematous Scaly patch with a sharply defined, raised border and central clearing. GI Abdomen image: 2 1. Erythematous Scaly patch with a sharply defined, raised border and central clearing. Neuro General: patient oriented x3, gait normal and moves all extremities Psych Speech and movement: Normal speech and movement present Assessment & Plan Assessment & Plan (1) Candidiasis, intertrigo: Code(s): B37.2 - Candidiasis of skin and nail Plan: Severe Sarah rash on left armpit and folds of abdominal wall. Ordered Fluconazole 150 mg Qwk for 4 weeks Ordered Clotrim/Betame cream for 2 weeks. Medications: New 2 clotrimazole-betamethasone 1-0.05 % 1 appl topical BID 45 grams 2RF 2 weeks B37.2 - Candidiasis of skin and nail fluconazole 150 mg PO QWEEK 4 tabs 1RF B37.2 - Candidiasis of skin and nail Coding Level of Care Code Est Pt Level 4 (26080) Diagnoses Candidiasis, intertrigo B37.2 Time Spent (min) 20
[2025-05-04 13:04] VITALS: BP 108/70; PULSE 70; TEMP 36.6; O2SAT 98
--- OUTSIDE RECORDS SUMMARY | 2025-05-04 13:47 | XMS_ITS ---
Author Name [facility] Organization Unknown History of Medication Use Medication Directions Dispensed Refills Start Date End Date Stat us levothyroxine (SYNTHROID, LEVOTHROID) 112 MCG tablet Take 1 Dose by mouth daily. active Problems Problem Status Onset Date Problem Type Date of Resoluti on Source Pituitary adenoma active 2024-03-23 ProblemAct CCT Encounters Encounter Type Encounter Reason Primary Diagnosis Location Date Ambulatory Benign neoplasm of pituitary gland Benign neoplasm of pituitary gland [facility] 03/26/2024 Ambulatory Benign neoplasm of pituitary gland [facility] 03/28/2023 Ambulatory Benign neoplasm of pituitary gland [facility] 12/21/2022 Ambulatory [facility] 10/16/2022 Care Team Organization Name Specialty Phone Email Start Date End Da te [facility] 12/21/2022 11/27/19 [facility] 12/21/2022 12/22/19 23 [facility] 10/16/2022 11/26/2024 [facility] 10/16/2022 10/16/2022
--- OUTSIDE RECORDS SUMMARY | 2025-05-04 13:47 | XMS_ITS | Clinical Summary ---
Author Organization [facility] Address [address] [facility] [address] [place] [address] Phone Care Team Providers Care Heel Sander Name Role Phone Nate Jackson MD Primary Care Provider [phone] Allergies No known active allergies Medications acetaminophen (TYLENOL) 325 mg tablet Take 650 mg by mouth every 6 (six) hours as needed for mild pain. Active levothyroxine sodium (LEVOTHYROXINE ORAL) Take by mouth daily. Active docusate sodium (COLACE) 100 MG capsule Take 1 capsule (100 mg total) by mouth 2 (two) times a day. 03/26/2021 Active oxyCODONE 5 MG immediate release tablet Take 1-2 tablets (5-10 mg total) by mouth every 6 (six) hours as needed for moderate pain. Partial fill ok 30 tablet 03/26/2021 Active senna (SENOKOT) 8.6 mg tablet Take 2 tablets by mouth nightly at bedtime. 03/26/2021 Active sodium chloride (OCEAN) 0.65 % nasal spray 1 spray by Nasal route 3 (three) times a day as needed for congestion. 15 mL 03/26/2021 Active Active Problems Problem Noted Date Diagnosed Date Pituitary adenoma 03/24/2021 Social History Tobacco Use Types Packs/Day Years Used Date Smoking Tobacco: Former Cigarettes 0.5 20 0 09/10/1965 - 09/10/1985 Smokeless Tobacco: Never Alcohol Use Standard Drinks/Week Comments Not Currently 50 (1 standard drink = 0.6 oz pu re alcohol) Education Answer Date Recorded Are you interested in more education? Not on diaz e 01/06/2023 Are you concerned about learning? Not on file 01/06/2023 No 01/06/2023 No 01/06/2023 Digital Access Answer Date Recorded No 02/03/2023 No 02/03/2023 No 02/03/2023 Reliable internet access at home? Not on file 02/03/2023 Device with a working camera? Not on file Sex and Gender Information Value Date Recorded Sex Assigned at Not on file Legal Sex Male 9:50 AM EDT Gender Identity Not on file Sexual Orientation Not on file Last Filed Vital Signs Vital Sign Reading Time Taken Comments Blood Pressure 147/67 03/26/2021 8:14 AM EDT Pulse 76 03/26/2021 8:14 AM EDT Temperature 36.9 C (98.5 F) 03/26/2021 8:14 AM EDT Respiratory Rate 17 03/26/2021 8:14 AM EDT Oxygen Saturation 95% 03/26/2021 8:14 AM EDT Inhaled Oxygen Concentration - - Weight 99.8 kg (220 lb) 04/30/2021 9:13 AM EDT Height 175.3 cm (5' 9 ) 04/30/2021 9:13 AM EDT Body Mass Index 32.49 04/30/2021 9:13 AM EDT Plan of Treatment Health Maintenance Due Date Last Done Comments Adult Td,Tdap Booster 1949 LIPID PANEL 1949 TSH LEVEL 1949 DEPRESSION SCREENING 1961 SMOKING Hx and SMOKELESS TOBACCO SCREENING 1962 HEPATITIS C SCREENING 11/29/1967 COLOGUARD 1994 COLONOSCOPY 1994 COLORECTAL CANCER SCREENING 1994 FIT TEST 1994 FOBT 1994 SIGMOIDOSCOPY 1994 VIRTUAL COLONOSCOPY 1994 ZOSTER VACCINES (1 of 2) 11/29/1999 COVID-19 VACCINE (3 - 2023-2 5 season) 2024 01/01/2021, 12/04/2020 RSV VACCINE (1 - 1-dose 75+ series) 2024 PNEUMOCOCCAL VACCINES (50+ years) Completed 05/21/2019, 06/07/2016, 06/07/2016 HEPATITIS A VACCINES Aged Out No long er eligible based on patient's age to complete this topic HIB VACCINES Aged Out No longer eligi ble based on patient's age to complete this topic MENINGOCOCCAL VACCINES (ACWY) Aged Out No longer eligible based on patient's age to complete this topic MENINGOCOCCAL VACCINES (B) Aged Out N o longer eligible based on patient's age to complete this topic Medical Devices Not on file Insurance [employer] MEDEX SUPPLEMENT [facility] MEDICARE REPLACEMENT [employer] MEDEX SUPPLEMENT Member Subscriber Plan / Payer (Ef fective 2014-Present) Name:Chuck Salazar Relation to Subscriber:Self Name:Chuck Salazar Jannet Payer ID:[id number] (NAIC) Type:Indemnity Address: [facility] [id number] MEDICARE REPLACEMENT Member Subscriber Plan / Payer (Ef fective 2021-Present) Name:Chuck Salazar Relation to Subscriber:Self Name:Chuck Salazar Jannet Payer ID:Not on file Group ID:Not on file Type:Medicare Address: [place] [phone] [employer] MEDEX SUPPLEMENT MEDICARE REPLACEMENT [employer] CROSS MEDEX SUPPLEMENT Member Subscriber Plan / Payer (Ef fective 2014-Present) Name:Chuck Salazar Relation to Subscriber:Self Name:Chuck Salazar Payer ID:[id number] (NAIC) Type:Indemnity Address: [id number] MEDICARE REPLACEMENT [address] [employer] CROSS MEDEX SUPPLEMENT Member Subscriber Plan / Payer (Ef fective 2014-Present) Name:Chuck Salazar Relation to Subscriber:Self Name:Chuck Salazar Payer ID:[id number] (NAIC) Type:Indemnity Address: [id number] MEDICARE REPLACEMENT [employer] MEDEX SUPPLEMENT MEDICARE REPLACEMENT [employer] CROSS MEDEX SUPPLEMENT Member Subscriber Plan / Payer ( fective 2014-Present) Name:Chuck Salazar Relation to Subscriber:Self Name:Chuck Salazar Payer ID:[id number] (NAIC) Type:Indemnity Address: [address] MEDICARE REPLACEMENT Member Subscriber Plan / Payer ( fective 2021-Present) Name:Chuck Salazar Relation to Subscriber:Self Name:Chuck Salazar Payer ID:Not on file Group ID:Not on file Type:Medicare Address: [place] [phone] [employer] CROSS MEDEX SUPPLEMENT MEDICARE REPLACEMENT Member Subscriber Plan / Payer (Ef fective 2021-) Name:Chuck Salazar Relation to Subscriber:Self Name:Chuck Salazar Payer ID:Not on file Group ID:Not on file Type:Medicare Address: [place] [phone] [employer] MEDEX SUPPLEMENT Member Subscriber Plan / Payer (Ef fective 2014-Present) Name:Chuck Salazar Relation to Subscriber:Self Name:Chuck Salazar Payer ID:[id number] (NAIC) Type:Indemnity Address[address] MED[address] REPLACEMENT Advance Directives For more information, please contact: [phone] (9AM - 5PM [facility], Sunday-Sunday) * Full Code (Latest Code Status on File) Date Activated Date Inactivated Comments 03/24/2021 4:30 PM Question Answer Comments Code Status Confirmed With: Patient Care Teams Heel Sander Relationship Specialty Start Date End Date Nate Jackson MD [address] [place] [address] [place] [address] PCP - General Internal Medicine 02/25/21 Additional Source Comments The information contained in this document represents components of the legal health record. It is not the complete legal health record.[facility]
--- OUTSIDE RECORDS SUMMARY | 2025-05-04 13:47 | XMS_ITS | Encounter Summary ---
Author Organization [facility] Address [address] [place] [address] Care Team Providers Care Extruding Machine Operator Name Role Phone Nate Jackson MD Primary Care Provider [phone] Encounter Details Date Type Department Care Team (Late st Contact Info) Description 03/16/2025 Telephone [facility] Neuro[facility] [place] [address] [facility] [address] [place] [id number] Bakari Dolan MD [address] [facility] [address] [place] [address] Social History Tobacco Use Types Packs/Day Years [...] encounter Miscellaneous Notes * Telephone Encounter - Grace Conn MA - 03/25/2025 3:05 PM EDT LVM x2 LETTING PT KNOW THAT HE IS DUE FOR HIS YEARLY MRI. PROVIDED [facility] NUMBER AND MY CALL BACK NUMBER. PT TO SEE TANVI ONCE MRI IS COMPLETE * Telephone Encounter - Grace Conn MA - 03/16/2025 1:29 PM EDT LVM LETTING PT KNOW THAT HE IS DUE FOR HIS YEARLY MRI. PROVIDED [facility] NUMBER AND MY CALL BACK NUMBER. PT TO SEE TANVI ONCE MRI IS COMPLETE documented in this encounter Plan of Treatment Not on file documented as of this encounter Visit Diagnoses Not on filedocumented in this encounter Care Teams Extruding Machine Operator Relationship Specialty Start Date End Date Nate Jackson MD [address] [place] [address] [address] [place] [address] PCP - General Internal Medicine 12/05/22 documented as of this encounter
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
== END 2025-05-04 13:32 | disposition home or self-care (01) ==
PROVIDERS: Visit Provider Nurse Practitioner Family
DX: B37.2 Candidiasis of skin and nail (principal)

== ENCOUNTER → 2025-05-04 12:39 | Outpatient (BNVA) | payer MEDICARE, SELFPAY | PROVIDERS: Visit Provider Nurse Practitioner Family | DX: E03.8 Other specified hypothyroidism (principal); E23.0 Hypopituitarism; M85.852 Other specified disorders of bone density and structure, left thigh; D35.2 Benign neoplasm of pituitary gland; B37.2 Candidiasis of skin and nail | CPT/HCPCS: 99212 ==

== ENCOUNTER 2025-05-04 15:25 | Outpatient (AMB) | payer BC, MEDICARE, SELFPAY ==
[2025-05-04 15:34] VITALS: BP 112/72; PULSE 72; O2SAT 96; BMI 37.0
--- NOTE | 2025-05-04 15:34 | MHC.OFFVIS ---
Vital Signs 05/04/25 15:34 Height 5 ft 6 in Weight 229 lb 0.964 oz BMI 37.0 BP 112/72 Blood Pressure Location Lt brachial Position Sitting Pulse 72 Pulse Source Pulse Oximeter Pulse Oximetry (%) 96 Oxygen Delivery Method Room Air Intake Visit Reasons: Hypogonadotropic hypogonadism Intake Note: Patient present today for Hypogonadotropic hypogonadism office visit. Telephone Service Representative Required: No Accompanied by: Son Allergies hay fever Allergy (Unknown, Uncoded 05/04/25 15:38) Hives RAsh Medication List - Last Reconciled 05/04/25 by Halle Solano MD alendronate (Fosamax) 70 mg PO QWEEK clotrimazole-betamethasone 1-0.05 % 1 appl topical BID 2 weeks fluconazole 150 mg PO QWEEK ibuprofen 600 mg PO Q6H PRN levothyroxine 112 mcg PO QAM 90 days lorazepam 1 mg PO BID PRN HPI Comments Details: 73 YO Male with a PMHx of a Pituitary Macroadenoma s/p transphenoidal debulking [place] [address] Vail at [facility] and again 03/24/[address] 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 Here with son Mickey who was providing all of the history HPI from prior visit Of note, the Patient is a very poor historian and has very little information regarding his health history. Pituitary MRI dated 12/08/2020 which revealed expansion of his pituitary macroadenoma to 3.3 cm, with mass effect on and displacement of the optic chiasm by up to 1 cm. He was having severe visual field deficits at that time. He was referred emergently to [facility] Neurosurgery and he underwent surgical debulking by Dr. Lyndsay Suarez 03/24/2021. Postoperative labs remained WNL in terms of Cortisol and sodium. He had a repeat Pituitary MRI which revealed postoperative decompression of the optic nerves. He had a repeat Pituitary MRI 02/10/2022 which revealed the pituitary tumor to be 2.3 cm in maximal dimension, and not compressing the optic chiasm though it does come within 1 mm of the optic chiasm. He was asked to follow up with Neurosurgery, but his insurance was no longer accepted by [facility] Neurosurgery so he did see Dr. Bakari Dolan at [facility]. 12/21/22 . He did have a repeat pituitary MRI 02/13/23 which was largely unchanged. He was also noted to have hypogonadism with low testosterone and has consistently refused testosterone supplementation. DXA scan 2021 which revealed osteopenia of the hip. He then did agree to testosterone supplementation and was started on androgel packets. He has been noncompliant with these. Interval history 07/17/[address] Remy in March 2023 Has not been [facility] Patient's son endorses patient saw neurosurgery this year at Dr. Dolan office, I do not see these records we will obtain. He has been taking levothyroxine 112 mcg daily, skipped a few days recently but otherwise says he is adherent Takes it appropriately. Reports bowel movements are regulat No constipation no diarrhea No major weight changes No palpitations, no tremors No nausea, no vomiting No lightheadness, no dizziness Reports 2 falls in the last 2-3 months , says he trips Denies abd pain. Reports no vision chnages. Lives by himself , takes care of his own meds , independent for most of his care Gets meals on wheels Interval history 01/15/2025 He thinks he is taking levothyroxine 112 mcg daily, not completely sure Denies nausea, vomiting, any major changes to weight or bowel movements Says he thinks he is doing well No fractures Still has not started using the testosterone gel but again says during today's visit that he would like to try Interval history 05/04/2025 DEXA scan 02/25/2025 showed T-score of-0.1 at the lumbar spine consistent with normal bone density with increase of 1.3% compared to 202. Osteopenia of the hip with T-score of-1.6 at the left total hip, with increase of 0.1% compared to previous bone density. Left femoral neck T-score-1.6 with the increase of 6.4% compared to previous bone density. Major osteoporotic FRAX score 17.1%, hip FRAX score elevated at 11.8% He decided not to take the testosterone gel. Physical exam General: sitting comfortably in no acute distress HEENT: normocephalic/atraumatic, moist oral mucosa Neck: supple, symmetrical, no thyromegaly , no dorsocervical or supraclavicular fat pads Cardiac: normal heart sounds Pulm: normal breath sounds B/L, no added breath sounds Abd: not distended, no tenderness Laboratory Tests 11/20/19 12/04/20 02/24/21 14:45 07:40 10:30 Hgb Hct AST ALT Alkaline Phosphatase Alpha Subunit Marker PSA Screen Free T4 1.30 1.02 TSH 0.10 L 0.01 L Total T3 110 FSH 2.3 Luteinizing Hormone 0.6 L Estradiol Ultra LCMSMS Prolactin Undiluted 14.2 Total Testosterone 12 L Fr Testosterone Dialys 1.5 L Sex Hormone Bind Glob 38 Somatomedin-C 41 Somato-C Z-Score Male Insulin-like GF II Cortisol Baseline Cortisol 30 Minute Cortisol 60 Minute Random Cortisol ACTH 28 05/12/21 05/23/21 11/17/21 07:30 08:37 12:41 Hgb Hct AST ALT Alkaline Phosphatase Alpha Subunit Marker PSA Screen Free T4 0.88 1.02 TSH 0.06 L 0.05 L Total T3 111 120 FSH 2.0 2.8 Luteinizing Hormone 0.9 L 1.2 L Estradiol Ultra LCMSMS Prolactin Undiluted 12.5 12.1 Total Testosterone 11 L 14 L Fr Testosterone Dialys 1.5 L 2.2 L Sex Hormone Bind Glob 29 38 Somatomedin-C 51 49 Somato-C Z-Score Male Insulin-like GF II Cortisol Baseline 10.0 Cortisol 30 Minute 33.4 Cortisol 60 Minute 39.6 Random Cortisol ACTH 20 22 04/11/22 11/22/22 11/22/22 10:07 09:49 09:49 Hgb Hct AST ALT Alkaline Phosphatase Alpha Subunit Marker PSA Screen 0.31 Free T4 0.99 1.12 TSH 0.11 L 0.08 L 0.08 L Total T3 113 FSH 3.3 Luteinizing Hormone 1.1 L Estradiol Ultra LCMSMS Prolactin Undiluted 11.1 Total Testosterone 20 L Fr Testosterone Dialys 2.4 L Sex Hormone Bind Glob 38 Somatomedin-C Somato-C Z-Score Male Insulin-like GF II Cortisol Baseline Cortisol 30 Minute Cortisol 60 Minute Random Cortisol 10.5 10.6 ACTH 31 21 11/22/22 12/12/22 12/23/22 Unknown 08:31 11:35 Hgb 13.7 L Hct 43.5 AST ALT Alkaline Phosphatase Alpha Subunit Marker PSA Screen Free T4 TSH Total T3 106 FSH 3.5 Luteinizing Hormone 1.7 Estradiol Ultra LCMSMS Prolactin Undiluted 14.3 Total Testosterone 23 L Fr Testosterone Dialys 3.0 L Sex Hormone Bind Glob 44 Somatomedin-C Somato-C Z-Score Male Insulin-like GF II Cortisol Baseline 8.3 Cortisol 30 Minute 34.7 Cortisol 60 Minute 40.8 Random Cortisol ACTH 6 12/29/22 02/02/23 03/23/23 08:20 09:55 08:25 Hgb Hct AST ALT Alkaline Phosphatase Alpha Subunit Marker PSA Screen Free T4 0.86 TSH 0.25 L Total T3 104 FSH 3.4 Luteinizing Hormone 1.4 L Estradiol Ultra LCMSMS Prolactin Undiluted 11.2 Total Testosterone 24 L 26 L Fr Testosterone Dialys 3.1 L 3.2 L Sex Hormone Bind Glob 38 44 Somatomedin-C 40 Somato-C Z-Score Male -1.7 Insulin-like GF II Cortisol Baseline 8.5 Cortisol 30 Minute 30.8 Cortisol 60 Minute 36.3 Random Cortisol 19.5 ACTH 6 38 11/16/23 04/02/24 08:57 09:59 Hgb 14.7 Hct 46.0 AST 15 ALT 15 Alkaline Phosphatase 86 Alpha Subunit Marker 0.2 PSA Screen Free T4 0.82 TSH 1.56 1.06 Total T3 94 FSH 3.9 Luteinizing Hormone 1.6 Estradiol Ultra LCMSMS 4 Prolactin Undiluted 14.8 Total Testosterone 24 L Fr Testosterone Dialys Sex Hormone Bind Glob Somatomedin-C Somato-C Z-Score Male Insulin-like GF II 258 L Cortisol Baseline Cortisol 30 Minute Cortisol 60 Minute Random Cortisol 11.6 ACTH 23 Laboratory Tests 12/06/24 09:55 Hgb 14.2 Hct 43.6 Alpha Subunit Marker 0.4 Prostate Specific Ag 0.44 TSH 0.84 Free T4 0.77 FSH 3.5 Luteinizing Hormone 1.8 Prolactin 14.6 Testosterone Level 29 L Free Testoster w SHBG 3.2 L Bioavail Testosterone 5.9 L Sex Hormone Bind Glob 36.7 Random Cortisol 15.4 ACTH 13 Imaging Pituitary MRI: 02/10/2022 FINDINGS: Sellar and suprasellar enhancing lesion is decreased in size compared with 12/08/2020 currently measuring 1.8 cm x 1.6 cm x 2.3 cm (SI by AP by lateral). In similar dimensions, this lesion previously measured 3.3 cm x 1.9 cm x 2.9 cm on the study of 12/08/2020. The lesion comes to within 1 mm proximity of the inferior margin of the optic chiasm. The optic chiasm appears atrophic. The lesion partially extends into the clivus unchanged in extent compared with 12/08/2020. The lesion extends the left and right cavernous sinuses without crossing the medial carotid lines bilaterally. Normal flow-related signal intensity is noted in the cavernous portions of the internal carotid arteries. The lesion partially effaces the suprasellar cistern. The pituitary stalk is midline. Partial ethmoidectomies and additional findings related to the previously described transsphenoidal deep bulking of the previously identified pituitary macroadenoma are again visualized. Chronic encephalomalacia within the parasagittal anterior left frontal lobe is again noted. Elsewhere, moderate diffuse commensurate prominence of ventricles and sulci is noted along with mild periventricular white matter patchy T2 hyperintensities. Partial visualization is made of the previously noted left posterior cervical subcutaneous lipoma measuring approximately 8 cm in maximum transaxial dimension. No acute intracranial hemorrhage or acute infarcts are demonstrated. MR/MR head/brain wo/w con IMPRESSION: ? 1. Pituitary macroadenoma decreased in size compared with 12/08/2020. The lesion previously exerted mass effect upon the optic chiasm and currently comes to within 1 mm proximity of the optic chiasm without impinging upon the optic chiasm. The lesion demonstrates invasion of the clivus unchanged in extent compared with 12/08/2020. 2. Chronic postoperative findings status post transsphenoidal tumor debulking. 3. 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 4. Partially visualized left posterior cervical subcutaneous lipoma grossly unchanged compared with 09/27/2015. 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 COMPARISON: Comparison is made with a prior examination dated 06/06/2022. FINDINGS: The bone mineral density of the lumbar spine is 1.211, corresponding to a T-score of -0.1, and a Z-score of -0.2. This is indicative of normal bone mineral density. This represents a BMD change of 1.3% compared to the prior exam. This is not statistically significant. The bone mineral density of the left total hip is 0.870, corresponding to a T-score of -1.6, and a Z-score of -1.2. This is indicative of osteopenia. This represents a BMD change of 0.1% compared to the prior exam. This is not statistically significant. The bone mineral density of the left femoral neck is 0.860, corresponding to a T-score of -1.6, and a Z-score of -0.7. This is indicative of osteopenia. This represents a BMD change of 6.4% compared to the prior exam. FRACTURE RISK: The FRAX index suggests a ten year probability of major osteoporotic fracture of 17.1%, and of hip fracture 11.8%. MM/XR DEXA axial skeleton IMPRESSION: Based on bone mineral density, and according to World Health Organization (WHO) criteria, the diagnosis is consistent with osteopenia. DXA: 06/06/2022 FINDINGS: AP SPINE L1-L4: BMD 1.195 g/cm2, Z-score -0.4, T-score -0.2, normal. LEFT FEMUR, NECK: BMD 0.808 g/cm2, Z-score -1.2, T-score -2.0, osteopenia. LEFT FEMUR, TOTAL: BMD 0.869 g/cm2, Z-score -1.3, T-score -1.6, osteopenia. LEFT FOREARM RADIUS 33%: BMD 0.910 g/cm2, Z-score 0.1, T-score -0.8, normal. Labs: [facility] Medical History (Updated 05/04/25 @ 13:28 by Mallory Garcia NP) Candidiasis, intertrigo Vitamin D deficiency Osteopenia Hypopituitarism Hypogonadotropic hypogonadism Obesity Hypothyroidism Pituitary macroadenoma Pituitary tumor Cognitive decline Surgical History S/P excision of lipoma History of surgery Family History Father Medical history unknown Mother Medical history unknown Social History Housing: House Alcohol intake: former Patient Tobacco Use Status: Former Tobacco user Tobacco use type: Cigarette e-Cigarette/Vaping Use: Never Used Second Hand Smoke Exposure: No Advance Directives Date on File: 03/09/21 service: No Current occupational status: retired Current occupation: right handed Cognitive needs: No Hearing needs: No Vision needs: Yes (glasses) Physical Exam Vital Signs: Last Vital Signs Pulse 72 05/04/25 15:34 BP 112/72 05/04/25 15:34 Pulse Ox 96 05/04/25 15:34 Oxygen Delivery Method Room Air 05/04/25 15:34 BMI result Body Mass Index 37.0 Assessment & Plan Assessment & Plan (1) Hypothyroidism: Code(s): E03.9 - Hypothyroidism, unspecified Category: Medical Qualifiers: Hypothyroidism type: other Qualified Code(s): E03.8 - Other specified hypothyroidism Plan: Patient with central hypothyroidism. He remains on Levothyroxine 112 mcg PO daily. TFTs at goal from November 2024. No changes. It is important to note that his TSH is unusable given his Pituitary issues. Adjustments to his levothyroxine dose must be made based on his FT4. Plan: -continue levothyroxine 112 mcg daily -ordered TSH, free T4 to be done now (2) Hypogonadotropic hypogonadism: Code(s): E23.0 - Hypopituitarism Category: Medical Plan: Patient with hypogonadotropic hypogonadism. We reviewed that his testosterone levels are low. We reviewed this can lead to Osteoporosis as well as sexual dysfunction. We reviewed the indication for testosterone replacement. He has consistently refused. DEXA scan 02/25/2025 showed T-score of-0.1 at the lumbar spine consistent with normal bone density with increase of 1.3% compared to 2021. Osteopenia of the hip with T-score of-1.6 at the left total hip, with increase of 0.1% compared to previous bone density. Left femoral neck T-score-1.6 with the increase of 6.4% compared to previous bone density. Major osteoporotic FRAX score 17.1%, hip FRAX score elevated at 11.8% He decided not to take the testosterone gel. At this time we will also obtain bone resorption markers. We will plan to start on Fosamax 70 mg weekly. Discussed mode of administration, common side effects as well as rare side effects of atypical femur fracture and osteonecrosis of the jaw. He has dentures. Plan: -start Fosamax 70 mg weekly pill -prior to starting medication do fasting blood work with CTX, bone specific alkaline phosphatase, vitamin-D, calcium, albumin, kidney function. -start vitamin-D 1000 units daily (3) Hypopituitarism: Code(s): E23.0 - Hypopituitarism Category: Medical Plan: Patient with central hypothyroidism and hypogonadotropic hypogonadism. IGF noted to be at the lower end of normal. Growth hormone replacement not discussed given he already has a lot of hesitation to taking testosterone and levothyroxine. Cortisol and ACTH from November 2024 within good range she does not have any signs or symptoms of adrenal insufficiency. (4) Osteopenia: Code(s): M85.80 - Other specified disorders of bone density and structure, unspecified site Category: Medical Qualifiers: Osteopenia location: hip Laterality: left Qualified Code(s): M85.852 - Other specified disorders of bone density and structure, left thigh Plan: See above (5) Pituitary macroadenoma: Code(s): D35.2 - Benign neoplasm of pituitary gland Category: Medical Plan: Patient with a nonsecreting Pituitary macroadenoma now s/p a second transphenoidal debulking surgery by Dr. Lyndsay Suarez 03/24/2021. Repeat MRI revealed postoperative decompression of the optic nerves, with pituitary mass now measuring 2.3 cm. This does come within 1 mm of the optic chiasm. He was last seen by Dr. Suarez 05/09/2021. His insurance is no longer accepted by [facility]. He follows with Dr. Dolan at [facility] . Pituitary MRI 02/13/2023 showed stable size of the adenoma. Patient's son endorses the followed with Dr. Dolan more recently and had an even more recent MRI. I do not see this in the chart, we we made multiple attempts to obtain these records, howeverI have not been successful. I have asked patient's son if he had they can bring in the office visit notes or have them faxed over to me. Plan See above Orders: Orders Thyroid Stimulating Hormone Today E03.8 - Other specified hypothyroidism, E23.0 - Hypopituitarism, E55.9 - Vitamin D deficiency, unspecified, M85.852 - Other specified disorders of bone density and structure, left thigh Alkaline Phosphatase Bone Today E03.8 - Other specified hypothyroidism, E23.0 - Hypopituitarism, E55.9 - Vitamin D deficiency, unspecified, M85.852 - Other specified disorders of bone density and structure, left thigh Vitamin D 25-OH Total Today E03.8 - Other specified hypothyroidism, E23.0 - Hypopituitarism, E55.9 - Vitamin D deficiency, unspecified, M85.852 - Other specified disorders of bone density and structure, left thigh Free T4 (Free Thyroxine) Today E03.8 - Other specified hypothyroidism, E23.0 - Hypopituitarism, E55.9 - Vitamin D deficiency, unspecified, M85.852 - Other specified disorders of bone density and structure, left thigh Albumin Level Today E03.8 - Other specified hypothyroidism, E23.0 - Hypopituitarism, E55.9 - Vitamin D deficiency, unspecified, M85.852 - Other specified disorders of bone density and structure, left thigh Calcium Today E03.8 - Other specified hypothyroidism, E23.0 - Hypopituitarism, E55.9 - Vitamin D deficiency, unspecified, M85.852 - Other specified disorders of bone density and structure, left thigh Collagen Type I C-Telopeptide Today E03.8 - Other specified hypothyroidism, E23.0 - Hypopituitarism, E55.9 - Vitamin D deficiency, unspecified, M85.852 - Other specified disorders of bone density and structure, left thigh Creatinine Today E03.8 - Other specified hypothyroidism, E23.0 - Hypopituitarism, E55.9 - Vitamin D deficiency, unspecified, M85.852 - Other specified disorders of bone density and structure, left thigh Medications: New alendronate (Fosamax) 70 mg PO QWEEK 14 tabs 2RF cholecalciferol (vitamin D3) 25 mcg PO DAILY 90 caps 0RF 3 months Refilled levothyroxine 112 mcg PO QAM 90 tabs 11RF 90 days Patient Instructions: continue levothyroxine 112 mcg daily Do fasting early AM blood work Then start fosamax 70 mg weekly tablet start vitamin D 1000 units daily Coding Level of Care Code Est Pt Level 4 (94705) Diagnoses Other specified hypothyroidism E03.8 Hypothyroidism type: other Hypogonadotropic hypogonadism E23.0 Hypopituitarism E23.0 Osteopenia of left hip M85.852 Osteopenia location: hip Laterality: left Pituitary macroadenoma D35.2 Time Spent (min) 30
== END 2025-05-04 16:12 | disposition home or self-care (01) ==
LOC: HO.ENCR 15:26
PROVIDERS: PCP Internal Medicine; Visit Provider Student in an Organized Health Care Education/Training Program
DX: E03.8 Other specified hypothyroidism (principal); E23.0 Hypopituitarism; M85.852 Other specified disorders of bone density and structure, left thigh; D35.2 Benign neoplasm of pituitary gland
CPT/HCPCS: 99214

== ENCOUNTER 2025-05-07 07:08 | Outpatient (REF) | payer MEDICARE, SELFPAY ==
--- OUTSIDE RECORDS SUMMARY | 2025-05-07 07:12 | XMS_ITS | Encounter Summary ---
Author Organization [facility] Address [address] [place] [address] Care Team Providers Care Scene Painter Name Role Phone Nate Jackson MD Primary Care Provider [phone] Encounter Details Date Type Department Care Team (Late st Contact Info) Description 03/10/2025 Telephone [facility] Neurosurgery [place] [address] [facility] [address] [place] [id number] Bakari Dolan MD [address] [facility] [address] [place] [address] Social History Tobacco Use Types Packs/Day Years [...] on file documented as of this encounter Plan of Treatment Not on file documented as of this encounter Visit Diagnoses Not on filedocumented in this encounter Care Teams Scene Painter Relationship Specialty Start Date End Date Nate Jackson MD [address] [place] [id number] PCP - General Internal Medicine 12/05/22 documented as of this encounter
--- OUTSIDE RECORDS SUMMARY | 2025-05-07 07:12 | XMS_ITS | Encounter Summary ---
Author Organization [facility] Address [address] [facility] [address] [place] [phone] Phone Care Team Providers Care Net Technical Architect Name Role Phone Nate Jackson MD Primary Care Provider [phone] Encounter Details Date Type Department Care Team (Late st Contact Info) Description 03/03/2021 Procedure Pass [facility], Ct Scan - [address] [address] Social History Tobacco Use Types Packs/Day Years Used Date Smoking Tobacco: Former Cigarettes 0.5 20 0 09/10/1965 - 09/10/1985 Smokeless Tobacco: Never Alcohol Use Standard Drinks/Week Comments Not Currently 49 (1 standard drink = 0.6 oz pu re alcohol) Sex and Gender Information Value Date Recorded Sex Assigned at Not on file Legal Sex Male 9:50 AM EDT Gender Identity Not on file Sexual Orientation Not on file documented as of this encounter Plan of Treatment Not on file documented as of this encounter Visit Diagnoses Not on filedocumented in this encounter Care Teams Net Technical Architect Relationship Specialty Start Date End Date Nate Jackson MD [address] [place] [address] [place] [address] PCP - General Internal Medicine 02/25/21 documented as of this encounter Additional Source Comments The information contained in this document represents components of the legal health record. It is not the complete legal health record.[facility]
--- OUTSIDE RECORDS SUMMARY | 2025-05-07 07:12 | XMS_ITS | Clinical Summary ---
Author Organization [facility] Address [address] [place] [address] Care Team Providers Care Lock And Dam Equipment Repairer Name Role Phone Nate Jackson MD Primary Care Provider [phone] Allergies No known active allergies Medications levothyroxine [...] Noted Date Diagnosed Date Pituitary adenoma 03/23/2024 Encounters Date Type Department Care Team Description 03/16/2025 Telephone [facility] Neurosurgery [address] [place] [id number] Bakari Dolan MD 03/10/2025 Orders Only [facility] [id number] [address] [place] [address] [address] [place] [address] Jemma Reyes RN Pituitary adenoma (HCC) (Primary Dx); Pituitary macroadenoma (HCC) 03/10/2025 Telephone [facility] Neurosurgery [place] [address] [facility] [address] [place] [id number] Bakari Dolan MD from Last 3 Months Social History Tobacco Use Types Packs/Day Years [...] 68 03/26/2024 3:09 PM EDT Temperature 36.7 C (98 F) 12/21/2022 12:57 PM EDT Respiratory Rate 17 [...] Zoster (Shingles) Vaccine (1 of 2) 11/29/1999 COVID-19 Vaccine (2 - 2023-2 5 season) 2024 09/26/2022 RSV Vaccine 60 years and old er and Patients (1 - 1-dose 75+ series) 2024 Influenza Vaccine 04/10/2025 Hepatitis B Vaccines Aged Out No long er eligible based on patient's age to complete this topic Insurance [facility] - PPO A[employer] MGD MEDICARE Advance Directives Documents on File Type Date Recorded Patient Writer Editor Expl anation Power of Insurance Office Supervisor-Scan 12/21/2022 HEALTHCARE PROXY 12/09 Care Teams Lock And Dam Equipment Repairer Relationship Specialty Start Date End Date Nate Jackson MD [address] [facility] [address] [address] [place] [address] PCP - General Internal Medicine 12/05/22
--- OUTSIDE RECORDS SUMMARY | 2025-05-07 07:12 | XMS_ITS | Encounter Summary ---
Author Organization [facility] Address [address] [place] [address] Care Team Providers Care Qa Developer Name Role Phone Nate Jackson MD Primary Care Provider [phone] Encounter Details Date Type Department Care Team (Late st Contact Info) Description 03/16/[address] [facility] [place] [place] Neurosurgery [place] [address] [facility] [address] [place] [id number] Bakari Dolan MD 85 [facility] [address] [place] [address] Social History Tobacco Use Types Packs/Day Years [...] IS DUE FOR HIS YEARLY MRI. PROVIDED [facility] NUMBER AND MY CALL BACK NUMBER. PT TO SEE TANVI ONCE MRI IS COMPLETE * Telephone Encounter - Grace Conn MA - 03/16/2025 1:29 PM EDT LVM LETTING PT KNOW THAT HE IS DUE FOR HIS YEARLY MRI. PROVIDED [facility] RADIOLOGY NUMBER AND MY CALL BACK NUMBER. PT TO SEE TANVI ONCE MRI IS COMPLETE documented in this encounter Plan of Treatment Not on file documented as of this encounter Visit Diagnoses Not on filedocumented in this encounter Care Teams Qa Developer Relationship Specialty Start Date End Date Nate Jackson MD [address] [place] [address] [address] [place] [address] PCP - General Internal Medicine 12/05/22 documented as of this encounter
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
--- OUTSIDE RECORDS SUMMARY | 2025-05-07 07:12 | XMS_ITS | Encounter Summary ---
Author Organization [facility] Address [address] [place] [address] Care Team Providers Care Foam Dispenser Name Role Phone Nate Jackson MD Primary Care Provider [phone] Encounter Details Date Type Department Care Team ([facility] [address] Contact Info) Description 01/23/2023 Telephone [facility] [id number] [address] [address] Bakari Dolan MD [address] [id number] Social History Tobacco Use Types Packs/Day Years [...] on filedocumented in this encounter Care Teams Foam Dispenser Relationship Specialty Start Date End Date Nate Jackson MD [address] [place] [address] [place] [address] PCP - General Internal Medicine 12/05/22 documented as of this encounter
--- OUTSIDE RECORDS SUMMARY | 2025-05-07 07:12 | XMS_ITS | Clinical Summary ---
Author Organization [facility] Address [address] [facility] 7t [place] [address] Care Team Providers Care Dry Sand Molder Name Role Phone Unavailable Primary Care Provider Unavailabl e Immunizations Immunization Administration Dates Next Due Moderna Covid-19 Vaccine [...] 2024 09/26/2022, 01/18/2022, 07/31/2021, Additional history exists RSV Patients and Patients Aged 60 years or older (1 - 1-dose 75+ series) 2024 Influenza Vaccine (#1) 2025 2, 06/17/2022, 07/31/2021, Additional history exists Pneumococcal Vaccine: 50+ Years Completed 05/21/2019, 06/07/2016, [...] patient's age to complete this topic Meningococcal B Vaccine Aged Out No l onger eligible based on patient's age to complete [...]
--- OUTSIDE RECORDS SUMMARY | 2025-05-07 07:12 | XMS_ITS | Encounter Summary ---
Author Organization [facility] Address [address] [place] [address] Phone Care Team Providers Care Pipe Finisher Name Role Phone Nate Jackson MD Primary Care Provider [phone] Encounter Details Date Type Department Care Team (Late st Contact Info) Description 03/03/2021 Procedure Pass [facility] [address] [place] [phone] Social History Tobacco Use Types Packs/Day Years [...] on filedocumented in this encounter Care Teams Pipe Finisher Relationship Specialty Start Date End Date Nate Jackson MD [address] [place] [address] [place] [address] PCP - General Internal Medicine 02/25/21 documented as of this encounter Additional Source Comments The information contained in this document represents components of the legal health record. It is not the complete legal health record.[facility]
--- OUTSIDE RECORDS SUMMARY | 2025-05-07 07:12 | XMS_ITS | Encounter Summary ---
Author Organization [facility] Address [address] [facility] [address] [place] [address] Phone Care Team Providers Care Mortgage Manager Name Role Phone Nate Jackson MD Primary Care Provider [phone] Encounter Details Date Type Department Care Team (Late st Contact Info) Description 03/25/2021 Procedure Pass [facility] [place], [address] [facility], 6th [place] [address] Social History Tobacco Use Types Packs/Day Years [...] on filedocumented in this encounter Care Teams Mortgage Manager Relationship Specialty Start Date End Date Nate Jackson MD [address] [place] [address] [place] [address] PCP - General Internal Medicine 02/25/21 documented as of this encounter Additional Source Comments The information contained in this document represents components of the legal health record. It is not the complete legal health record.[facility]
--- OUTSIDE RECORDS SUMMARY | 2025-05-07 07:12 | XMS_ITS | Encounter Summary ---
Author Organization [facility] Address [address] [employer] [facility] [address] [place] [address] Phone Care Team Providers Care Welfare Director Name Role Phone Nate Jackson MD Primary Care Provider [phone] Encounter Details Date Type Department Care Team (Late st Contact Info) Description 03/24/2021 Procedure Pass [facility] [address] [place] [phone] Social History Tobacco Use Types Packs/Day Years [...] on file documented as of this encounter Functional Status * Calculated C-SSRS Risk Score (Lifetime/Recent) Answer Date of Assessment Author No Risk Indicated 03/24/2021 8:00 PM EDT Sparkle Parmar CNP * [place] Suicide Severity Rating Scale (Screener/Recent Self-Report) Question Answer Date of Assessment Author 1. Wish to be (Past 1 Month) No 03/24/2021 8:00 PM EDT Janell Parmar CNP 2. Non-Specific Active Suicidal Thoughts (Past 1 Month) No 03/24/2021 8:00 PM EDT Janell Parmar CNP 6. Suicidal Behavior (Lifetime) No 03/24/2021 8:00 PM EDT Janell Parmar CNP documented as of this encounter Plan of Treatment Not on file documented as of this encounter Visit Diagnoses Not on filedocumented in this encounter Care Teams Welfare Director Relationship Specialty Start Date End Date Nate Jackson MD [address] [place] [address] [place] [address] PCP - General Internal Medicine 02/25/21 documented as of this encounter Additional Source Comments The information contained in this document represents components of the legal health record. It is not the complete legal health record.[facility]
--- OUTSIDE RECORDS SUMMARY | 2025-05-07 07:12 | XMS_ITS | Encounter Summary ---
Author Organization [facility] Address [address] [facility] [address] [place] [address] Phone Care Team Providers Care Switcher Name Role Phone Nate Jackson MD Primary Care Provider [phone] Encounter Details Date Type Department Care Team (Late st Contact Info) Description 03/03/2021 Procedure Pass [facility], [address] [address] Social History Tobacco Use Types Packs/Day Years [...] on filedocumented in this encounter Care Teams Switcher Relationship Specialty Start Date End Date Nate Jackson MD [address] [place] [address] [place] [address] PCP - General Internal Medicine 02/25/21 documented as of this encounter Additional Source Comments The information contained in this document represents components of the legal health record. It is not the complete legal health record.[facility]
--- OUTSIDE RECORDS SUMMARY | 2025-05-07 07:12 | XMS_ITS | Encounter Summary ---
Author Organization [facility] Address [address] [facility] [address] [place] [address] Phone Care Team Providers Care Statement Request Clerk Name Role Phone Nate Jackson MD Primary Care Provider [phone] Encounter Details Date Type Department Care Team (Late st Contact Info) Description 03/21/2021 Procedure Pass [facility], [place] [address] [place] [address], 4th [place] [address] Social History Tobacco Use Types Packs/Day Years [...] 8:00 PM EDT Sparkle Parmar CNP * [place] Suicide Severity Rating Scale (Screener/Recent Self-Report) Question [...] on filedocumented in this encounter Care Teams Statement Request Clerk Relationship Specialty Start Date End Date Nate Jackson MD [address] [place] [address] [place] [address] PCP - General Internal Medicine 02/25/21 documented as of this encounter Additional Source Comments The information contained in this document represents components of the legal health record. It is not the complete legal health record.[facility]
--- OUTSIDE RECORDS SUMMARY | 2025-05-07 07:12 | XMS_ITS | Clinical Summary ---
Author Organization [facility] Address [address] [employer] [facility] [address] [place] [address] Phone Care Team Providers Care Lsat Instructor Name Role Phone Nate Jackson MD Primary Care Provider [phone] Allergies No known active allergies Medications acetaminophen [...] topic Medical Devices Not on file Insurance [employer] MEDEX SUPPLEMENT [facility] MEDICARE REPLACEMENT [employer] MEDEX SUPPLEMENT Member Subscriber Plan / Payer (Ef fective 2014-Present) Name:Chuck Salzaar Relation to Subscriber:Self Name:Chuck Salazar Jannet Payer ID:[id number] (NAIC) Type:Indemnity Address: [facility] [id number] MEDICARE REPLACEMENT Member Subscriber Plan / Payer (Ef fective 2021-Present) Name:Chuck Salazar Relation to Subscriber:Self Name:Chuck Salazar Jannet Payer ID:Not on file Group ID:Not on file Type:Medicare Address: [place] [id number] [employer] MEDEX SUPPLEMENT MEDICARE REPLACEMENT [employer] CROSS MEDEX SUPPLEMENT Member Subscriber Plan / Payer (Ef fective 2014-Present) Name:Chuck Salazar Relation to Subscriber:Self Name:Chuck Salazar Payer ID:[id number] (NAIC) Type:Indemnity Address: [address] MEDICARE REPLACEMENT [address] [employer] CROSS MEDEX SUPPLEMENT Member Subscriber Plan / Payer (Ef fective 2014-Present) Name:Chuck Salazar Relation to Subscriber:Self Name:Chuck Salazar Payer ID:[id number] (NAIC) Type:Indemnity Address: [id number] MEDICARE REPLACEMENT [employer] MEDEX SUPPLEMENT MEDICARE REPLACEMENT [employer] CROSS MEDEX SUPPLEMENT Member Subscriber Plan / Payer ( fective 2014-Present) Name:Chuck Salazar Relation to Subscriber:Self Name:Chukc Salazar Payer ID:[id number] (NAIC) Type:Indemnity Address: [address] MEDICARE REPLACEMENT Member Subscriber Plan / Payer ( fective 2021-Present) Name:Chuck Salazar Relation to Subscriber:Self Name:Chuck Salazar Payer ID:Not on file Group ID:Not on file Type:Medicare Address: [place] [id number] [employer] CROSS MEDEX SUPPLEMENT MEDICARE REPLACEMENT Member Subscriber Plan / Payer (Ef fective 2021-) Name:Chuck Salazar Relation to Subscriber:Self Name:Chuck Salazar Payer ID:Not on file Group ID:Not on file Type:Medicare Address: [place] [id number] [employer] MEDEX SUPPLEMENT Member Subscriber Plan / Payer (Ef fective 2014-Present) Name:Chuck Salazar Relation to Subscriber:Self Name:Chuck Salazar Payer ID:[id number] (NAIC) Type:Indemnity Address: [address] MED[address] REPLACEMENT Advance Directives For more information, please contact: [phone] (9AM - 5PM Juju/[facility], Sunday-Sunday) * Full Code (Latest Code Status on File) Date Activated Date Inactivated Comments 03/24/2021 4:30 PM Question Answer Comments Code Status Confirmed With: Patient Care Teams Lsat Instructor Relationship Specialty Start Date End Date Nate Jackson MD [address] [place] [address] [place] [address] PCP - General Internal Medicine 02/25/21 Additional Source Comments The information contained in this document represents components of the legal health record. It is not the complete legal health record.[facility]
[2025-05-07 08:37] LABS: Albumin Level 4.3 g/dL (3.5-5.0); Calcium 9.2 mg/dL (8.4-10.2); Estimated Glomerular Filt Rate > 60
[2025-05-07 09:02] LABS: Free T4 (Free Thyroxine) 1.64 ng/dL (0.71-1.85); Thyroid Stimulating Hormone 0.01 uIU/mL (0.32-4.0)
== END 2025-05-07 07:09 | disposition home or self-care (01) ==
LOC: HO.LAB 07:08
PROVIDERS: PCP Internal Medicine; Visit Provider Student in an Organized Health Care Education/Training Program
DX: M85.852 Other specified disorders of bone density and structure, left thigh (principal); E03.8 Other specified hypothyroidism; E23.0 Hypopituitarism; E55.9 Vitamin D deficiency, unspecified
CPT/HCPCS: 36415; 82040; 82306; 82310; 82565; 84075; 84439; 84443

== ENCOUNTER 2025-05-08 08:07 | Outpatient (REF) | payer MEDICARE, SELFPAY ==
--- OUTSIDE RECORDS SUMMARY | 2025-05-08 08:41 | XMS_ITS | Encounter Summary ---
Author Organization [facility] Address [address] [facility] [address] [place] [address] Phone Care Team Providers Care Washing Machine Operator Name Role Phone Nate Jackson MD Primary Care Provider [phone] Encounter Details Date Type Department Care Team (Late st Contact Info) Description 03/03/2021 Procedure Pass [facility], Ct Scan - [address] [address] Social History Tobacco Use Types Packs/Day Years [...] on filedocumented in this encounter Care Teams Washing Machine Operator Relationship Specialty Start Date End Date Nate Jackson MD [address] [place] [address] [place] [address] PCP - General Internal Medicine 02/25/21 documented as of this encounter Additional Source Comments The information contained in this document represents components of the legal health record. It is not the complete legal health record.[facility]
--- OUTSIDE RECORDS SUMMARY | 2025-05-08 08:41 | XMS_ITS | Encounter Summary ---
Author Organization [facility] Address [address] [place] [address] Care Team Providers Care Education Reporter Name Role Phone Nate Jackson MD Primary Care Provider [phone] Encounter Details Date Type Department Care Team (Late st Contact Info) Description 03/16/2025 Telephone [facility] Neurosurgery [place] [address] [facility] [address] [place] [phone] Bakari Dolan MD 85 [facility] [address] [place] [address] Social History Tobacco Use Types Packs/Day Years [...] IS DUE FOR HIS YEARLY MRI. PROVIDED [facility] NUMBER AND MY CALL BACK NUMBER. PT TO SEE TANVI ONCE MRI IS COMPLETE * Telephone Encounter - Grace Conn MA - 03/16/2025 1:29 PM EDT LVM LETTING PT KNOW THAT HE IS DUE FOR HIS YEARLY MRI. PROVIDED [facility] NUMBER AND MY CALL BACK NUMBER. PT TO SEE TANVI ONCE MRI IS COMPLETE documented in this encounter Plan of Treatment Not on file documented as of this encounter Visit Diagnoses Not on filedocumented in this encounter Care Teams Education Reporter Relationship Specialty Start Date End Date Nate Jackson MD [address] [place] [address] [address] [place] [address] PCP - General Internal Medicine 12/05/22 documented as of this encounter
--- OUTSIDE RECORDS SUMMARY | 2025-05-08 08:41 | XMS_ITS | Clinical Summary ---
Author Organization [facility] Address [address] [facility] [address] [place] [address] Phone Care Team Providers Care Rock Climbing Instructor Name Role Phone Nate Jackson MD Primary Care Provider [phone] Allergies No known active allergies Medications acetaminophen [...] topic Medical Devices Not on file Insurance [employer] MEDEX SUPPLEMENT [facility] MEDICARE REPLACEMENT [employer] MEDEX SUPPLEMENT Member Subscriber Plan / Payer (Ef fective 2014-Present) Name:Chuck Salazar Relation to Subscriber:Self Name:Chuck Salazar Jannet Payer ID:[id number] (NAIC) Type:Indemnity Address: [facility] [id number] MEDICARE REPLACEMENT Member Subscriber Plan / Payer (Ef fective 2021-Present) Name:Chuck Salazar Relation to Subscriber:Self Name:Chuck Salazar Jannet Payer ID:Not on file Group ID:Not on file Type:Medicare Address: [place] [id number] [place] [employer] MEDEX SUPPLEMENT MEDICARE REPLACEMENT [employer] CROSS MEDEX SUPPLEMENT Member Subscriber Plan / Payer (Ef fective 2014-Present) Name:Chuck Salazar Relation to Subscriber:Self Name:Chuck Salazar Payer ID:[id number] (NAIC) Type:Indemnity Address: [address] MEDICARE REPLACEMENT [address] [employer] CROSS MEDEX SUPPLEMENT Member Subscriber Plan / Payer (Ef fective 2014-Present) Name:Chuck Salazar Relation to Subscriber:Self Name:Chuck Salazar Payer ID:[id number] (NAIC) Type:Indemnity Address: [id number] MEDICARE REPLACEMENT [employer]UE [employer]OSS MEDEX SUPPLEMENT MEDICARE REPLACEMENT [employer] CROSS MEDEX SUPPLEMENT Member Subscriber Plan / Payer ( fective 2014-Present) Name:Chuck Salazar Relation to Subscriber:Self Name:Chuck Salazar Payer ID:[id number] (NAIC) Type:Indemnity Address: [address] MEDICARE REPLACEMENT Member Subscriber Plan / Payer ( fective 2021-Present) Name:Chuck Salazar Relation to Subscriber:Self Name:Chuck Salazar Payer ID:Not on file Group ID:Not on file Type:Medicare Address: [place] [id number] [employer] CROSS MEDEX SUPPLEMENT MEDICARE REPLACEMENT Member Subscriber Plan / Payer (Ef fective 2021-) Name:Chuck Salazar Relation to Subscriber:Self Name:Chuck Salazar Payer ID:Not on file Group ID:Not on file Type:Medicare Address: [place] [id number] [employer] MEDEX SUPPLEMENT Member Subscriber Plan / Payer (Ef fective 2014-Present) Name:Chuck Salazar Relation to Subscriber:Self Name:Chuck Salazar Payer ID:[id number] (NAIC) Type:Indemnity Address: [address] MED[address] REPL[address]EMENT Advance Directives For more information, please contact: [phone] (9AM - 5PM [facility], Sunday-Sunday) * Full Code (Latest Code Status on File) Date Activated Date Inactivated Comments 03/24/2021 4:30 PM Question Answer Comments Code Status Confirmed With: Patient Care Teams Rock Climbing Instructor Relationship Specialty Start Date End Date Nate Jackson MD [address] [place] [address] [place] [address] PCP - General Internal Medicine 02/25/21 Additional Source Comments The information contained in this document represents components of the legal health record. It is not the complete legal health record.[facility]
--- OUTSIDE RECORDS SUMMARY | 2025-05-08 08:42 | XMS_ITS | Encounter Summary ---
Author Organization [facility] Address [address] [facility] [address] [place] [address] Phone Care Team Providers Care Carpet Cleaner Name Role Phone Nate Jackson MD Primary Care Provider [phone] Encounter Details Date Type Department Care Team (Late st Contact Info) Description 03/03/2021 Procedure Pass [facility], [address] [address] Social History Tobacco Use Types Packs/Day Years [...] on filedocumented in this encounter Care Teams Carpet Cleaner Relationship Specialty Start Date End Date Nate Jackson MD [address] [place] [address] [place] [address] PCP - General Internal Medicine 02/25/21 documented as of this encounter Additional Source Comments The information contained in this document represents components of the legal health record. It is not the complete legal health record.[facility]
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
--- OUTSIDE RECORDS SUMMARY | 2025-05-08 08:42 | XMS_ITS | Clinical Summary ---
Author Organization [employer] Address [address] [facility] 7t [place] [address] Care Team Providers Care Electroplating Sales Representative Name Role Phone Unavailable Primary Care Provider [...]
--- OUTSIDE RECORDS SUMMARY | 2025-05-08 08:42 | XMS_ITS | Encounter Summary ---
Author Organization [facility] Address [address] [facility] [address] [place] [address] Phone Care Team Providers Care Dye Operator Name Role Phone Nate Jackson MD Primary Care Provider [phone] Encounter Details Date Type Department Care Team (Late st Contact Info) Description 03/25/2021 Procedure Pass [facility] [place], [place] [address] [facility], 6th [place] [address] Social History Tobacco Use Types Packs/Day Years [...] on filedocumented in this encounter Care Teams Dye Operator Relationship Specialty Start Date End Date Nate Jackson MD [address] [place] [address] [place] [address] PCP - General Internal Medicine 02/25/21 documented as of this encounter Additional Source Comments The information contained in this document represents components of the legal health record. It is not the complete legal health record.[facility]
--- OUTSIDE RECORDS SUMMARY | 2025-05-08 08:42 | XMS_ITS | Encounter Summary ---
Author Organization [facility] Address [address] [place] [address] Care Team Providers Care Cable Assembler And Swager Name Role Phone Nate Jackson MD Primary Care Provider [phone] Encounter Details Date Type Department Care Team (Late st Contact Info) Description 03/10/2025 Telephone [facility] Neurosurgery [place] [address] [facility] [address] [place] [id number] Bakari Dolan MD [address] [facility] [address] [place] [address] Social History Tobacco Use Types Packs/Day Years [...] on filedocumented in this encounter Care Teams Cable Assembler And Swager Relationship Specialty Start Date End Date Nate Jackson MD [address] [place] [address] PCP - General Internal Medicine 12/05/22 documented as of this encounter
--- OUTSIDE RECORDS SUMMARY | 2025-05-08 08:42 | XMS_ITS | Encounter Summary ---
Author Organization [facility] Address [address] [facility] [address] [place] [id number] Phone Care Team Providers Care Auto Transmission Technician Name Role Phone Nate Jackson MD Primary Care Provider [phone] Encounter Details Date Type Department Care Team (Late st Contact Info) Description 03/24/2021 Procedure Pass [facility] PERIOPERATIVE DEPT [address] [place] [phone] Social History Tobacco Use Types Packs/Day Years [...] 8:00 PM EDT Sparkle Parmar CNP * [place] Suicide Severity Rating Scale (Screener/Recent Self-Report) Question [...] on filedocumented in this encounter Care Teams Auto Transmission Technician Relationship Specialty Start Date End Date Nate Jackson MD [address] [place] [address] [place] [address] PCP - General Internal Medicine 02/25/21 documented as of this encounter Additional Source Comments The information contained in this document represents components of the legal health record. It is not the complete legal health record.[facility]
--- OUTSIDE RECORDS SUMMARY | 2025-05-08 08:42 | XMS_ITS | Encounter Summary ---
Author Organization [facility] Address [address] [place] [address] Phone Care Team Providers Care Bag Checker Name Role Phone Nate Jackson MD Primary Care Provider [phone] Encounter Details Date Type Department Care Team (Late st Contact Info) Description 03/03/2021 Procedure Pass [facility] PERIOPERATIVE DEPT [address] [place] [phone] Social History Tobacco Use Types Packs/Day Years [...] on filedocumented in this encounter Care Teams Bag Checker Relationship Specialty Start Date End Date Nate Jackson MD [address] [place] [address] [place] [address] PCP - General Internal Medicine 02/25/21 documented as of this encounter Additional Source Comments The information contained in this document represents components of the legal health record. It is not the complete legal health record.[facility]
--- OUTSIDE RECORDS SUMMARY | 2025-05-08 08:42 | XMS_ITS | Encounter Summary ---
Author Organization [facility] Address [address] [facility] [address] [place] [address] Phone Care Team Providers Care Game Bird Farmer Name Role Phone Nate Jackson MD Primary Care Provider [phone] Encounter Details Date Type Department Care Team (Late st Contact Info) Description 03/21/2021 Procedure Pass [facility], [employer] [address] [place] [address], [address] [place] [address] Social History Tobacco Use Types Packs/Day Years [...] 8:00 PM EDT Sparkle Parmar CNP * [place] Suicide Severity Rating Scale (Screener/Recent Self-Report) Question [...] on filedocumented in this encounter Care Teams Game Bird Farmer Relationship Specialty Start Date End Date Nate Jackson MD [address] [place] [address] [place] [address] PCP - General Internal Medicine 02/25/21 documented as of this encounter Additional Source Comments The information contained in this document represents components of the legal health record. It is not the complete legal health record.[facility]
--- OUTSIDE RECORDS SUMMARY | 2025-05-08 08:42 | XMS_ITS | Clinical Summary ---
Author Organization [facility] Address [address] [place] [address] Care Team Providers Care Box Annealer Name Role Phone Nate Jackson MD Primary Care Provider [phone] Allergies No known active allergies Medications levothyroxine [...] Type Department Care Team Description 03/16/2025 Telephone [facility] Neurosurgery [address] [place] [phone] Bakari Dolan MD 03/10/2025 Orders Only [facility] [id number] [address] [place] [address] [address] [place] [address] Jemma Reyes RN Pituitary adenoma (HCC) (Primary Dx); Pituitary macroadenoma (HCC) 03/10/2025 Telephone [facility] Neurosurgery [place] [address] [facility] [address] [place] [phone] Bakari Dolan MD from Last 3 [...] Health Maintenance Due Date Last Done Comments Advance Care Planning 1950 Hepatitis C Virus Screening 1950 DTaP/Tdap/Td Vaccines [...] to complete this topic Insurance 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
--- OUTSIDE RECORDS SUMMARY | 2025-05-08 08:42 | XMS_ITS | Encounter Summary ---
Author Organization [facility] Address [address] [place] [address] Care Team Providers Care Exploration Manager Name Role Phone Nate Jackson MD Primary Care Provider [phone] Encounter Details Date Type Department Care Team ([facility] Contact Info) Description 01/23/2023 Telephone [facility] [id number] [address] [phone] Bakari Dolan MD [address] [id number] Social History Tobacco Use Types Packs/Day Years [...] on filedocumented in this encounter Care Teams Exploration Manager Relationship Specialty Start Date End Date Nate Jackson MD [address] [place] [address] [place] [address] PCP - General Internal Medicine 12/05/22 documented as of this encounter
[2025-05-12 22:23] LABS: Collagen Type I C-Telopeptide 416 pg/mL (see note)
== END 2025-05-08 08:08 | disposition home or self-care (01) ==
LOC: HO.LAB 08:07
PROVIDERS: PCP Internal Medicine; Visit Provider Student in an Organized Health Care Education/Training Program
DX: M85.852 Other specified disorders of bone density and structure, left thigh (principal); E03.8 Other specified hypothyroidism; E23.0 Hypopituitarism; E55.9 Vitamin D deficiency, unspecified
CPT/HCPCS: 36415; 82523